=== PATIENT | male | born 1935 | race Caucasian/White ===

== ENCOUNTER 2018-09-17 14:09 | Inpatient (IN) | payer OTHER, MEDICARE ==
--- NOTE | 2018-09-17 14:26 | PDOC ---
History of Present Illness - General Chief Complaint: Hematuria Stated Complaint: BLOOD IN URINE Time Seen by Provider: 09/17/18 14:26 Past History - Past Medical History Allergies/Adverse Reactions: Allergies Allergy/AdvReac Type Severity Reaction Status Date / Time iodine Allergy Verified 09/17/18 14:28 levofloxacin Allergy Verified 09/17/18 14:28 shellfish derived Allergy Verified 09/17/18 14:28 ED Treatment Course - LABORATORY CBC & Chemistry Diagram: 09/17/18 14:30 09/17/18 14:30
[2018-09-17 14:31] VITALS: BMI 34.8
[2018-09-17] MEDS ORDERED: ACETAMINOPHEN 1000 MG/100 ML VIAL (NON FORMULARY) IVPB ONE (15:04)
[2018-09-17 15:22] LABS: VENOUS PC02 56.4 mmHg (38-52); VENOUS PH 7.31 (7.32-7.42); VENOUS PO2 23.7 mmHg (28-48)
[2018-09-17 15:25] LABS: BASO % 0.2 % (0-2.0); EOS % 0.5 % (0-4.5); HEMATOCRIT 38.2 % (35.4-49); HEMOGLOBIN 13.2 GM/dL (11.7-16.9); LYMPH % 7.5 % (8-40); MCHC 34.6 g/dl (32.0-35.9); MEAN CELL VOLUME 92.4 fl (80-96); MEAN PLT VOLUME 7.8 fl (7.5-11.1); MONO % 6.4 % (3.8-10.2); NEUT % 85.4 % (42.8-82.8); PLATELET COUNT 182 K/MM3 (134-434); RBC 4.14 M/mm3 (4.00-5.60); RDW 15.1 % (11.9-15.9); WHITE BLOOD COUNT 10.6 K/mm3 (4.0-10.0)
[2018-09-17] MEDS ORDERED: ACETAMINOPHEN INJECTION 100 ML IVPB ONE (15:33)
[2018-09-17 15:44] LABS: INR 1.07 (0.83-1.09); PROTHROMBIN TIME (PATIENT) 12.6 SEC (9.7-13.0)
[2018-09-17] MEDS ORDERED: SODIUM CHLORIDE 0.9% 500 ML INFUS.BAG IV ONE ×2 (16:07→16:52)
[2018-09-17 16:16] LABS: ALBUMIN 3.9 g/dl (3.4-5.0); ALK PHOS 90 U/L (45-117); ANION GAP 8 MMOL/L (8-16); BILIRUBIN,TOTAL 0.7 mg/dL (0.2-1); BLOOD UREA NITROGEN 23 mg/dL (7-18); CALCIUM 9.2 mg/dL (8.5-10.1); CHLORIDE 99 mmol/L (98-107); CO2 28 mmol/L (21-32); CREATININE 1.2 mg/dL (0.55-1.3); GLUCOSE,RANDOM 177 mg/dL (74-106); POTASSIUM 4.6 mmol/L (3.5-5.1); SGOT/AST 17 U/L (15-37); SGPT/ALT 26 U/L (13-61); SODIUM 135 mmol/L (136-145); TOT PROT 7.5 g/dl (6.4-8.2)
[2018-09-17 16:49] LABS: URINE APPEARANCE TURBID; URINE BILIRUBIN NEGATIVE (<2.0 mg/dL); URINE GLUCOSE (UA) NEGATIVE (NEGATIVE); URINE KETONE NEGATIVE (NEGATIVE); URINE LEUK ESTERASE NEGATIVE (NEGATIVE); URINE NITRITE POSITIVE (NEGATIVE); URINE UROBILINOGEN NEGATIVE mg/dL (0.2-1.0)
[2018-09-17 16:51] LABS: URINE COLOR BROWN; URINE PROTEIN 3+ (NEGATIVE)
[2018-09-17 16:57] LABS: URINE BACTERIA MANY /hpf (NONE SEEN)
[2018-09-17] MEDS ORDERED: PIPERACILLIN/TAZOB 4.5 GM 4.5 GM in DEXTROSE 5%-WATER 100 ML IVPB ONE (17:02)
--- NOTE | 2018-09-17 17:33 | PDOC ---
Attending Attestation - Resident Resident Name: Angelica Hayes - ED Attending Attestation I have performed the following: I have examined & evaluated the patient, The case was reviewed & discussed with the resident, I agree w/resident's findings & plan, Exceptions are as noted - HPI HPI: 09/26/18 15:35 82 years old with past medical history significant for hyperlipidemia hypertension diabetes dementia a seizure previous UTIs brought in from [facility] secondary to urinary retention. - Physicial Exam PE: 09/26/18 15:35 Vitals: Triage Vital signs reviewed General Appearance: no acute distress, well nourished well developed, Head: Atraumatic, Neck: Supple;No Nucal rigidity Chest Wall: Nontender Cardiac: Regular rate and rhythym, no murmurs, no rubs, no gallops, Lungs: Clear to auscultation bilateral, good air movement bilaterally, Abdomen: Soft, non distended, normal bowel sounds, non tender to palpation Extremities: Full range of motion to all extremities, no cyanosis, clubbing, or edema Skin: Warm and dry, no rashes or lesions, no rash, no petechiae - Medical Decision Making 09/29/18 13:23 82 years old presents to the emergency department with signs and symptoms consistent with urosepsis We will cover with broad-spectrum antibiotics and admit the hospital for further management.
[2018-09-17] MEDS ORDERED: PIPERACILLIN/TAZOB 4.5 GM 4.5 GM/100 ML BAG IVPB ONE (17:46)
--- NOTE | 2018-09-17 17:57 | PN ---
Teaching Attending Note Name of Resident: Art De La Cruz ATTENDING PHYSICIAN STATEMENT I saw and evaluated the patient. I reviewed the resident's note and discussed the case with the resident. I agree with the resident's findings and plan as documented. SUBJECTIVE: Patient is 82 y/o male with PMHx of HTN, HLD, DM, dementia, aphasia previous UTIs was brought in from [facility] for having urinary retention , hx is taken from the notes since the patient is apahsic and has dementia. OBJECTIVE: Vital Signs Temperature 102.7 F H 09/17/18 16:44 Pulse Rate 90 09/17/18 16:44 Respiratory Rate 20 09/17/18 16:44 Blood Pressure 120/78 09/17/18 16:44 O2 Sat by Pulse Oximetry (%) 100 09/17/18 16:44 Initial Vital Signs Pulse Pulse Ox 110 H 98 09/17/18 14:21 09/17/18 14:21 GENERAL: Awake, arousable to name calling. EYES: PEERLA; EOMI; no scleral icterus NECK: no JVD; no lymphadenopathy LUNGS: CTA B/L; no rales, rhonchi or wheezing HEART:RRR, normal S1 and S2 without murmur, rub or gallop. ABDOMEN: Soft, NT, + BS in all 4 quadrants MUSCULOSKELETAL: Normal range of motion at all joints. No bony deformities or tenderness. No CVA tenderness. EXTREMITIES: warm; well-perfused; no clubbing/cyanosis or edema PSYCHIATRIC: Cooperative. arousable to name SKIN: Warm, dry, normal turgor, no rashes or lesions noted, normal capillary refill. CBCD WBC 10.6 K/mm3 (4.0-10.0) H 09/17/18 14:30 RBC 4.14 M/mm3 (4.00-5.60) 09/17/18 14:30 Hgb 13.2 GM/dL (11.7-16.9) 09/17/18 14:30 Hct 38.2 % (35.4-49) 09/17/18 14:30 MCV 92.4 fl (80-96) 09/17/18 14:30 MCHC 34.6 g/dl (32.0-35.9) 09/17/18 14:30 RDW 15.1 % (11.9-15.9) 09/17/18 14:30 Plt Count 182 K/MM3 (134-434) 09/17/18 14:30 MPV 7.8 fl (7.5-11.1) 09/17/18 14:30 CMP Sodium 135 mmol/L (136-145) L 09/17/18 14:30 Potassium 4.6 mmol/L (3.5-5.1) 09/17/18 14:30 Chloride 99 mmol/L (98-107) 09/17/18 14:30 Carbon Dioxide 28 mmol/L (21-32) 09/17/18 14:30 Anion Gap 8 MMOL/L (8-16) 09/17/18 14:30 BUN 23 mg/dL (7-18) H 09/17/18 14:30 Creatinine 1.2 mg/dL (0.55-1.3) 09/17/18 14:30 Creat Clearance w eGFR 57.82 (>60) 09/17/18 14:30 Random Glucose 177 mg/dL (74-106) H 09/17/18 14:30 Calcium 9.2 mg/dL (8.5-10.1) 09/17/18 14:30 Total Bilirubin 0.7 mg/dL (0.2-1) 09/17/18 14:30 AST 17 U/L (15-37) 09/17/18 14:30 ALT 26 U/L (13-61) 09/17/18 14:30 Alkaline Phosphatase 90 U/L (45-117) 09/17/18 14:30 Total Protein 7.5 g/dl (6.4-8.2) 09/17/18 14:30 Albumin 3.9 g/dl (3.4-5.0) 09/17/18 14:30 Urine Test Results Urine Color Brown 09/17/18 16:22 Urine Appearance Turbid 09/17/18 16:22 Urine pH 6.0 (5.0-8.0) 09/17/18 16:22 Ur Specific [place] 1.013 (1.010-1.035) 09/17/18 16:22 Urine Protein 3+ (NEGATIVE) H 09/17/18 16:22 Urine Glucose (UA) Negative (NEGATIVE) 09/17/18 16:22 Urine Ketones Negative (NEGATIVE) 09/17/18 16:22 Urine Blood 3+ (NEGATIVE) H 09/17/18 16:22 Urine Nitrite Positive (NEGATIVE) 09/17/18 16:22 Urine Bilirubin Negative (<2.0 mg/dL) 09/17/18 16:22 Ur Leukocyte Esterase Negative (NEGATIVE) 09/17/18 16:22 Urine Bacteria Many /hpf (NONE SEEN) 09/17/18 16:22 Current Medications Generic Name Dose Route Start Last Admin Trade Name Freq PRN Reason Stop Dose Admin Acetaminophen 650 mg 09/17/18 18:46 Tylenol - PO Q6H PRN Fever Or Pain Aspirin 81 mg 09/18/18 10:00 Asa - PO DAILY [facility] Atorvastatin Calcium 5 mg 09/17/18 22:00 Lipitor - PO HS [facility] Citalopram Hydrobromide 10 mg 09/18/18 10:00 Celexa - PO DAILY [facility] Docusate Sodium 200 mg 09/17/18 22:00 Colace - PO HS [facility] Heparin Sodium (Porcine) 5,000 unit 09/17/18 18:30 Heparin - SQ TID [facility] Sodium Chloride 1,000 mls @ 75 mls/hr 09/17/18 18:30 Normal Saline - IV 09/18/18 07:49 ASDIR BLAIR Piperacillin Sod/Tazobactam 50 mls @ 100 mls/hr 09/18/18 01:00 Sod 3.375 gm/ Dextrose IVPB Q8H-IV [facility] Protocol Piperacillin Sod/Tazobactam 50 mls @ 100 mls/hr 09/18/18 01:00 Sod 3.375 gm/ Dextrose IVPB 09/18/18 17:29 Q8H [facility] Insulin Aspart 1 vial 09/17/18 22:00 Novolog Vial Sliding Scale - SQ ACHS [facility] Protocol Metoprolol Tartrate 25 mg 09/17/18 22:00 Lopressor - PO BID [facility] Polyethylene Glycol 17 gm 09/18/18 10:00 Miralax (For Daily Use) - PO DAILY [facility] Ramipril 10 mg 09/18/18 10:00 Altace - PO DAILY [facility] ASSESSMENT AND PLAN: Soo is a 82 y/o male with PMHx of HTN, HLD, DM, dementia, aphasia was brought in for having for urinary retention from [facility] and was found to be septic with gross hematuria in ED. #Acute sepsis due to UTI, milan culture ,ua, urine cx, blood cx, cxr # Acute UTI will place him on iV zosyn , id consult Jeff #HTN continue home meds #T2DM continue with SSc with coverage #HLD continue with lipitor 10 HS DVT PPX: heparin 5000 Q8H SQ CODE STATUS: DNR/DNI
[2018-09-17] MEDS: HEPARIN NA (PORCINE) 5,000 UNITS/ML 1ML VIAL SQ SCH ×2 (18:30→22:31)
[2018-09-17] MEDS ORDERED: SODIUM CHLORIDE 1,000 ML IV SCH (18:30)
--- NOTE | 2018-09-17 18:44 | HP ---
CHIEF COMPLAINT: UTI/hematuria PCP: [facility] HISTORY OF PRESENT ILLNESS: 82 y/o male with PMH of HTN, HLD, DM, dementia, aphasia previous UTIs was brought in from [facility] for what it seems to be urinary retention - history could not be obtained as patient is apahsic and dementia and no one was present at bedside. ER course was notable for: (1)T 103.7 HR 110 (2)Lactic acid 4.3, WBC 10.6, U/A + nitrite, - leuk esterase, 2991 WBC 1406 RBC (3)given 1 gram tylenol, zosyn, 3.5 liters of fluid Recent Travel: unknown PAST MEDICAL HISTORY: see above PAST SURGICAL HISTORY: unknown Social History: Smoking:unknown Alcohol:unknown Drugs: unknown Family History: Allergies iodine Allergy (Verified 09/17/18 14:28) levofloxacin Allergy (Verified 09/17/18 14:28) shellfish derived Allergy (Verified 09/17/18 14:28) HOME MEDICATIONS: Home Medications Medication Instructions Recorded Acetaminophen [Tylenol] 650 mg PO QID 09/17/18 Aspirin [ASA -] 81 mg PO DAILY 09/17/18 Atorvastatin Ca [Lipitor] 5 mg PO HS 09/17/18 Citalopram Hydrobromide [Celexa -] 10 mg PO DAILY 09/17/18 Docusate Sodium 200 mg PO HS 09/17/18 Magnesium Hydroxide [Milk of 400 mg PO DAILY 09/17/18 Magnesia] Metformin HCl [Glucophage] 500 mg PO DAILY 09/17/18 Metoprolol Tartrate 25 mg PO BID 09/17/18 Polyethylene Glycol 3350 [Miralax 17 gm PO DAILY 09/17/18 (For Daily Use) -] Ramipril 10 mg PO DAILY 09/17/18 REVIEW OF SYSTEMS: UNABLE TO OBTAIN PATIENT IS APHASIC CONSTITUTIONAL: Absent: fever, chills, diaphoresis, generalized weakness, malaise, loss of appetite, weight change HEENT: Absent: rhinorrhea, nasal congestion, throat pain, throat swelling, difficulty swallowing, mouth swelling, ear pain, eye pain, visual changes CARDIOVASCULAR: Absent: chest pain, syncope, palpitations, irregular heart rate, lightheadedness , peripheral edema RESPIRATORY: Absent: cough, shortness of breath, dyspnea with exertion, orthopnea, wheezing, stridor, hemoptysis GASTROINTESTINAL: Absent: abdominal pain, abdominal distension, nausea, vomiting, diarrhea, constipation, melena, hematochezia GENITOURINARY: Absent: dysuria, frequency, urgency, hesitancy, hematuria, flank pain, genital pain MUSCULOSKELETAL: Absent: myalgia, arthralgia, joint swelling, back pain, neck pain SKIN: Absent: rash, itching, pallor HEMATOLOGIC/IMMUNOLOGIC: Absent: easy bleeding, easy bruising, lymphadenopathy, frequent infections ENDOCRINE: Absent: unexplained weight gain, unexplained weight loss, heat intolerance, cold intolerance NEUROLOGIC: Absent: headache, focal weakness or paresthesias, dizziness, unsteady gait, seizure, mental status changes, bladder or bowel incontinence PSYCHIATRIC: Absent: anxiety, depression, suicidal or homicidal ideation, hallucinations. PHYSICAL EXAMINATION Vital Signs - 24 hr 09/17/18 09/17/18 09/17/18 14:21 14:22 15:02 Temperature 103.7 F H Pulse Rate 110 H 110 H Pulse Rate [ 98 H Apical] Respiratory 20 23 H Rate Blood Pressure 136/60 Blood Pressure 125/68 [Right Arm] O2 Sat by Pulse 98 94 L 98 Oximetry (%) 09/17/18 09/17/18 16:44 18:10 Temperature 102.7 F H Pulse Rate Pulse Rate [ 90 80 Apical] Respiratory 20 16 Rate Blood Pressure Blood Pressure 120/78 113/50 L [Right Arm] O2 Sat by Pulse 100 100 Oximetry (%) GENERAL: Awake, arousable to name calling. EYES: PEERLA; EOMI; no scleral icterus NECK: no JVD; no lymphadenopathy LUNGS: CTA B/L; no rales, rhonchi or wheezing HEART: tachycardic, normal S1 and S2 without murmur, rub or gallop. ABDOMEN: Soft, no wincing to palpation; + BS in all 4 quadrants MUSCULOSKELETAL: Normal range of motion at all joints. No bony deformities or tenderness. No CVA tenderness. EXTREMITIES: warm; well-perfused; no clubbing/cyanosis or edema PSYCHIATRIC: Cooperative. arousable to name SKIN: Warm, dry, normal turgor, no rashes or lesions noted, normal capillary refill. Laboratory Results - last 24 hr 09/17/18 09/17/18 09/17/18 14:30 14:30 14:30 WBC 10.6 H RBC 4.14 Hgb 13.2 Hct 38.2 MCV 92.4 MCH 32.0 MCHC 34.6 RDW 15.1 Plt Count 182 MPV 7.8 Absolute Neuts (auto) 9.0 H Neutrophils % 85.4 H Lymphocytes % 7.5 L Monocytes % 6.4 Eosinophils % 0.5 Basophils % 0.2 Nucleated RBC % 0 PT with INR 12.60 INR 1.07 VBG pH POC VBG pCO2 POC VBG pO2 Mixed VBG HCO3 Sodium 135 L Potassium 4.6 Chloride 99 Carbon Dioxide 28 Anion Gap 8 BUN 23 H Creatinine 1.2 Creat Clearance w eGFR 57.82 Random Glucose 177 H Lactic Acid Calcium 9.2 Total Bilirubin 0.7 AST 17 ALT 26 Alkaline Phosphatase 90 Total Protein 7.5 Albumin 3.9 Urine Color Urine Appearance Urine pH Ur Specific [place] Urine Protein Urine Glucose (UA) Urine Ketones Urine Blood Urine Nitrite Urine Bilirubin Urine Urobilinogen Ur Leukocyte Esterase Urine WBC (Auto) Urine RBC (Auto) Urine Bacteria Blood Type Antibody Screen 09/17/18 09/17/18 09/17/18 14:30 14:30 14:30 WBC RBC Hgb Hct MCV MCH MCHC RDW Plt Count MPV Absolute Neuts (auto) Neutrophils % Lymphocytes % Monocytes % Eosinophils % Basophils % Nucleated RBC % PT with INR INR VBG pH 7.31 L POC VBG pCO2 56.4 H POC VBG pO2 23.7 L Mixed VBG HCO3 27.4 H Sodium Potassium Chloride Carbon Dioxide Anion Gap BUN Creatinine Creat Clearance w eGFR Random Glucose Lactic Acid 4.3 H* Calcium Total Bilirubin AST ALT Alkaline Phosphatase Total Protein Albumin Urine Color Urine Appearance Urine pH Ur Specific [place] Urine Protein Urine Glucose (UA) Urine Ketones Urine Blood Urine Nitrite Urine Bilirubin Urine Urobilinogen Ur Leukocyte Esterase Urine WBC (Auto) Urine RBC (Auto) Urine Bacteria Blood Type O POSITIVE Antibody Screen Negative 09/17/18 16:22 WBC RBC Hgb Hct MCV MCH MCHC RDW Plt Count MPV Absolute Neuts (auto) Neutrophils % Lymphocytes % Monocytes % Eosinophils % Basophils % Nucleated RBC % PT with INR INR VBG pH POC VBG pCO2 POC VBG pO2 Mixed VBG HCO3 Sodium Potassium Chloride Carbon Dioxide Anion Gap BUN Creatinine Creat Clearance w eGFR Random Glucose Lactic Acid Calcium Total Bilirubin AST ALT Alkaline Phosphatase Total Protein Albumin Urine Color Brown Urine Appearance Turbid Urine pH 6.0 Ur Specific [place] 1.013 Urine Protein 3+ H Urine Glucose (UA) Negative Urine Ketones Negative Urine Blood 3+ H Urine Nitrite Positive Urine Bilirubin Negative Urine Urobilinogen Negative Ur Leukocyte Esterase Negative Urine WBC (Auto) 2991 Urine RBC (Auto) 1406 Urine Bacteria Many Blood Type Antibody Screen ASSESSMENT/PLAN: 82 y/o male with PMH of HTN, HLD, DM, dementia, aphasia previous UTI's was brought in from [facility] for urinary retention and found to be septic from a urinary tract infection with gross hematuria #Sepsis 2/2 UTI received 2liters of fluid, 1 gram of Tylenol, zosyn thus far -f/u blood cultures -f/u urine cx -stat chest XRAY ordered -f/u repeat lactic acid -c/w IV zosyn -ID consulted -tylenol PRN for fever -monitor vitals -NS @75 -monitor hemodynamics #HTN BP stable at this moment -c/w ramipril 10 daily -c/w metoprolol tartrate 25 daily #DM holding oral diabetes medications -ISS -BGMS ACHS #HLD -c/w lipitor 10 HS DVT PPX: heparin 5000 Q8H SQ F/E/N NS @75mls monitor electrolytes NPO for now pending speech and swallow CODE STATUS: DNR/DNI Problem List - Problem (1) UTI (urinary tract infection) Code(s): N39.0 - URINARY TRACT INFECTION, SITE NOT SPECIFIED (2) HTN (hypertension) Code(s): I10 - ESSENTIAL (PRIMARY) HYPERTENSION (3) HLD (hyperlipidemia) Code(s): E78.5 - HYPERLIPIDEMIA, UNSPECIFIED (4) Diabetes Code(s): E11.9 - TYPE 2 DIABETES MELLITUS WITHOUT COMPLICATIONS Visit type - Emergency Visit Emergency Visit: Yes ED Registration Date: 09/17/18 Care time: The patient presented to the Emergency Department on the above date and was hospitalized for further evaluation of their emergent condition. - New Patient This patient is new to me today: Yes Date on this admission: 09/17/18 - Critical Care Critical Care patient: No
[2018-09-17] MEDS ORDERED: PT OWN MED DRAWER 7, Y5N ONE (21:49)
[2018-09-17] MEDS: DOCUSATE SODIUM 100 MG CAPSULE (FP) PO SCH (22:30)
[2018-09-17] MEDS: METOPROLOL TARTRATE 25 MG TABLET (FP) PO SCH (22:31)
[2018-09-17] MEDS: ATORVASTATIN CA 10 MG TABLET (FP) PO SCH (22:32)
[2018-09-17] MEDS: INSULIN SLIDING SCALE (NOVOLOG) 1 VIAL SQ SCH (23:07)
[2018-09-17] MEDS: ACETAMINOPHEN 325 MG TABLET (FP) PO PRN (23:14)
[2018-09-18] MEDS ORDERED: PIPERACILLIN/TAZOB 3.375 GM 3.375 GM in DEXTROSE 5%-WATER - 50 ML IVPB SCH (01:00)
[2018-09-18] MEDS: PIPERACILLIN/TAZOB 3.375 GM 3.375 GM in DEXTROSE 5%-WATER - 50 ML IVPB SCH ×2 (02:43→09:37)
[2018-09-18] MEDS: HEPARIN NA (PORCINE) 5,000 UNITS/ML 1ML VIAL SQ SCH ×2 (06:01→14:38)
[2018-09-18] MEDS: INSULIN SLIDING SCALE (NOVOLOG) 1 VIAL SQ SCH ×4 (06:11→22:27)
[2018-09-18] MEDS ORDERED: PT OWN MED DRAWER 7, Y5N ONE ×2 (06:35→19:13)
[2018-09-18] MEDS: ACETAMINOPHEN 325 MG TABLET (FP) PO PRN ×2 (06:39→17:38)
[2018-09-18] MEDS ORDERED: SODIUM CHLORIDE 1,000 ML IV SCH (07:30)
[2018-09-18 08:19] LABS: BASO % 0.3 % (0-2.0); EOS % 0.3 % (0-4.5); HEMATOCRIT 31.1 % (35.4-49); HEMOGLOBIN 10.7 GM/dL (11.7-16.9); MCH 31.5 pg (25.7-33.7); MCHC 34.4 g/dl (32.0-35.9); MEAN CELL VOLUME 91.7 fl (80-96); MEAN PLT VOLUME 7.6 fl (7.5-11.1); MONO % 7.5 % (3.8-10.2); NEUT % 86.9 % (42.8-82.8); PLATELET COUNT 146 K/MM3 (134-434); RBC 3.39 M/mm3 (4.00-5.60); RDW 15.2 % (11.9-15.9); WHITE BLOOD COUNT 8.6 K/mm3 (4.0-10.0)
--- NOTE | 2018-09-18 08:22 | PN ---
Physical Exam: SUBJECTIVE: Patient seen and examined at bedside- cannot obtain history as patient is aphasic; patient still had some fevers overnight OBJECTIVE: Vital Signs Period Temp Pulse Resp BP Sys/Lozano Pulse Ox Last 24 Hr 98.7 F-103.7 F 80-110 16-23 106-136/48-78 94-100 GENERAL: The patient is awake, alert, , in no acute distress.. EYES: PEERLA EOMI no scleral icterus . NECK: no JVD; no lymphadenopathy LUNGS: CTA B/L; no rales, rhonchi or wheezing HEART: tacycardic, S1, S2 without murmur, rub or gallop. ABDOMEN: Soft, no wincing upon palpation; nondistended +BS in all 4 quadrants EXTREMITIES: 2+ pulses, warm, well-perfused, no edema. PSYCH: Normal mood, normal affect. SKIN: Warm, dry, normal turgor, no rashes or lesions noted Laboratory Results - last 24 hr 09/17/18 09/17/18 09/17/18 14:30 14:30 14:30 WBC 10.6 H RBC 4.14 Hgb 13.2 Hct 38.2 MCV 92.4 MCH 32.0 MCHC 34.6 RDW 15.1 Plt Count 182 MPV 7.8 Absolute Neuts (auto) 9.0 H Neutrophils % 85.4 H Lymphocytes % 7.5 L Monocytes % 6.4 Eosinophils % 0.5 Basophils % 0.2 Nucleated RBC % 0 PT with INR 12.60 INR 1.07 VBG pH POC VBG pCO2 POC VBG pO2 Mixed VBG HCO3 Sodium 135 L Potassium 4.6 Chloride 99 Carbon Dioxide 28 Anion Gap 8 BUN 23 H Creatinine 1.2 Creat Clearance w eGFR 57.82 POC Glucometer Random Glucose 177 H Lactic Acid Calcium 9.2 Total Bilirubin 0.7 AST 17 ALT 26 Alkaline Phosphatase 90 Total Protein 7.5 Albumin 3.9 Urine Color Urine Appearance Urine pH Ur Specific [place] Urine Protein Urine Glucose (UA) Urine Ketones Urine Blood Urine Nitrite Urine Bilirubin Urine Urobilinogen Ur Leukocyte Esterase Urine WBC (Auto) Urine RBC (Auto) Urine Bacteria Blood Type Antibody Screen 09/17/18 09/17/18 09/17/18 14:30 14:30 14:30 WBC RBC Hgb Hct MCV MCH MCHC RDW Plt Count MPV Absolute Neuts (auto) Neutrophils % Lymphocytes % Monocytes % Eosinophils % Basophils % Nucleated RBC % PT with INR INR VBG pH 7.31 L POC VBG pCO2 56.4 H POC VBG pO2 23.7 L Mixed VBG HCO3 27.4 H Sodium Potassium Chloride Carbon Dioxide Anion Gap BUN Creatinine Creat Clearance w eGFR POC Glucometer Random Glucose Lactic Acid 4.3 H* Calcium Total Bilirubin AST ALT Alkaline Phosphatase Total Protein Albumin Urine Color Urine Appearance Urine pH Ur Specific [place] Urine Protein Urine Glucose (UA) Urine Ketones Urine Blood Urine Nitrite Urine Bilirubin Urine Urobilinogen Ur Leukocyte Esterase Urine WBC (Auto) Urine RBC (Auto) Urine Bacteria Blood Type O POSITIVE Antibody Screen Negative 09/17/18 09/17/18 09/18/18 16:22 23:01 06:10 WBC RBC Hgb Hct MCV MCH MCHC RDW Plt Count MPV Absolute Neuts (auto) Neutrophils % Lymphocytes % Monocytes % Eosinophils % Basophils % Nucleated RBC % PT with INR INR VBG pH POC VBG pCO2 POC VBG pO2 Mixed VBG HCO3 Sodium Potassium Chloride Carbon Dioxide Anion Gap BUN Creatinine Creat Clearance w eGFR POC Glucometer 197 182 Random Glucose Lactic Acid Calcium Total Bilirubin AST ALT Alkaline Phosphatase Total Protein Albumin Urine Color Brown Urine Appearance Turbid Urine pH 6.0 Ur Specific [place] 1.013 Urine Protein 3+ H Urine Glucose (UA) Negative Urine Ketones Negative Urine Blood 3+ H Urine Nitrite Positive Urine Bilirubin Negative Urine Urobilinogen Negative Ur Leukocyte Esterase Negative Urine WBC (Auto) 2991 Urine RBC (Auto) 1406 Urine Bacteria Many Blood Type Antibody Screen Active Medications Generic Name Dose Route Start Last Admin Trade Name Freq PRN Reason Stop Dose Admin Acetaminophen 650 mg 09/17/18 18:46 09/18/18 06:39 Tylenol - PO 650 mg Q6H PRN Administration Fever Or Pain Aspirin 81 mg 09/18/18 10:00 Asa - PO DAILY [facility] Atorvastatin Calcium 5 mg 09/17/18 22:00 09/17/18 22:32 Lipitor - PO 5 mg HS BLAIR Administration Citalopram Hydrobromide 10 mg 09/18/18 10:00 Celexa - PO DAILY [facility] Docusate Sodium 200 mg 09/17/18 22:00 09/17/18 22:30 Colace - PO 200 mg HS [facility] Administration Heparin Sodium (Porcine) 5,000 unit 09/17/18 18:30 09/18/18 06:01 Heparin - SQ 5,000 unit TID [facility] Administration Piperacillin Sod/Tazobactam 50 mls @ 100 mls/hr 09/18/18 01:00 Sod 3.375 gm/ Dextrose IVPB Q8H-IV [facility] Protocol Piperacillin Sod/Tazobactam 50 mls @ 100 mls/hr 09/18/18 02:00 09/18/18 02:43 Sod 3.375 gm/ Dextrose IVPB 09/18/18 18:29 100 mls/hr Q8H [facility] Administration Sodium Chloride 1,000 mls @ 75 mls/hr 09/18/18 07:30 Normal Saline - IV 09/18/18 20:49 ASDIR BLAIR Insulin Aspart 1 vial 09/17/18 22:00 09/18/18 06:11 Novolog Vial Sliding Scale - SQ 2 unit ACHS [facility] Administration Protocol Metoprolol Tartrate 25 mg 09/17/18 22:00 09/17/18 22:31 Lopressor - PO 25 mg BID [facility] Administration Nystatin 1 applic 09/18/18 10:00 Mycostatin Cream - TP BID [facility] Polyethylene Glycol 17 gm 09/18/18 10:00 Miralax (For Daily Use) - PO DAILY [facility] Ramipril 10 mg 09/18/18 10:00 Altace - PO DAILY [facility] ASSESSMENT/PLAN: 82 y/o male with PMH of HTN, HLD, DM, dementia, aphasia previous UTI's was brought in from [facility] for urinary retention and found to be septic from a urinary tract infection with gross hematuria #Sepsis 2/2 UTI chest XRAY shows mild atelectatic changes at the right lung bases; cannot rule out pneumonic infiltrate -f/u blood cultures -f/u urine cx -repeat lactic acid 2.0 -c/w IV zosyn -ID consulted -will consult urology given hematuria and history of retention -tylenol PRN for fever -monitor vitals -NS @100 #HTN BP stable at this moment -c/w ramipril 10 daily -c/w metoprolol tartrate 25 BID #DM holding oral diabetes medications -ISS -BGMS ACHS #HLD -c/w lipitor 5 HS DVT PPX: heparin 5000 Q8H SQ F/E/N NS @100mls monitor electrolytes pureed nectar thick diet Problem List - Problems (1) UTI (urinary tract infection) Code(s): N39.0 - URINARY TRACT INFECTION, SITE NOT SPECIFIED (2) HTN (hypertension) Code(s): I10 - ESSENTIAL (PRIMARY) HYPERTENSION (3) HLD (hyperlipidemia) Code(s): E78.5 - HYPERLIPIDEMIA, UNSPECIFIED (4) Diabetes Code(s): E11.9 - TYPE 2 DIABETES MELLITUS WITHOUT COMPLICATIONS Visit type - Emergency Visit Emergency Visit: Yes ED Registration Date: 09/17/18 Care time: The patient presented to the Emergency Department on the above date and was hospitalized for further evaluation of their emergent condition. - New Patient This patient is new to me today: No - Critical Care Critical Care patient: No
[2018-09-18] MEDS ORDERED: DEXTROSE 5%-WATER - 50 ML IVPB ONE (09:18)
[2018-09-18] MEDS ORDERED: PIPERACILLIN/TAZOBACTAM 3.375 GM VIAL IVPB ONE (09:18)
[2018-09-18 09:20] LABS: ALBUMIN 2.8 g/dl (3.4-5.0); ALK PHOS 64 U/L (45-117); ANION GAP 7 MMOL/L (8-16); BILIRUBIN,TOTAL 0.7 mg/dL (0.2-1); BLOOD UREA NITROGEN 18 mg/dL (7-18); CALCIUM 8.1 mg/dL (8.5-10.1); CHLORIDE 106 mmol/L (98-107); CO2 26 mmol/L (21-32); CREATININE 1.1 mg/dL (0.55-1.3); GLUCOSE,RANDOM 137 mg/dL (74-106); MAGNESIUM 1.9 mg/dL (1.8-2.4); PHOSPHOROUS 2.3 mg/dL (2.5-4.9); POTASSIUM 3.9 mmol/L (3.5-5.1); SGOT/AST 34 U/L (15-37); SGPT/ALT 41 U/L (13-61); SODIUM 138 mmol/L (136-145); TOT PROT 5.7 g/dl (6.4-8.2)
[2018-09-18] MEDS: CITALOPRAM HYDROBROMIDE 10 MG TABLET (FP) PO SCH (09:38)
[2018-09-18] MEDS: ASPIRIN 81 MG CHEWABLE TABLETS PO SCH (09:38)
[2018-09-18] MEDS: POLYETHYLENE GLYCOL 3350 119 GM BTL PO SCH (09:39)
[2018-09-18] MEDS ORDERED: RAMIPRIL 5 MG CAPSULE (FP) PO SCH (10:00)
--- NOTE | 2018-09-18 10:11 | CONSULT ---
Admitting History and Physical - Primary Care Physician PCP: Jose A Rosales - Admission History of Present Illness: 82 y/o male with PMHx of HTN, HLD, DM, dementia, aphasia was brought in for having for urinary retention from [facility] and was found to be septic with gross hematuria in ED. CXR-Right base atelectic changes. Infiltrates? Reg diet/thin liquids ordered. Selected Entries 09/17/18 09/17/18 09/17/18 14:22 16:44 19:30 Breakfast Diet Tolerated Temperature 103.7 F H 102.7 F H 98.7 F 09/18/18 09/18/18 09/18/18 02:00 06:00 06:33 Breakfast Diet Tolerated Temperature 98.7 F 99.7 F H 101.5 F H 09/18/18 10:04 Breakfast 75% Diet Tolerated Well Temperature Laboratory Tests 09/17/18 09/18/18 14:30 07:50 WBC 10.6 H 8.6 Transfer summary noted Oropharyngeal Dysphagia. Diet order-Reg diet/thin liquids LIGHT ADJUSTER reported that pt tolerated breakfast, thin liquids via straw without coughing. History Source: Medical Record Limitations to Obtaining History: Clinical Condition, Dementia - Advance Directives Advance Directives: Yes: DNR - Smoking History Smoking history: Unknown if ever smoked Have you smoked in the past 12 months: No - Alcohol/Substance Use Hx Alcohol Use: No History - Admission Reason For Visit: SEPSIS DUE TO UTI/HEMATURIA - Diagnostics X-ray: Report Reviewed (CXR-Right base atelectic changes. Infiltrates?) - General Mental Status: Awake and Alert, Confused, Flat Affect Attention: Distractible (Opens eyes briefly. Establishes eye contact,) Ability to Follow Directions: Fair Head/Neck Control: WFL - Hearing Hearing: Normal Speech Evaluation - Communication Primary Language: CROATIAN Communication: Yes: Non-Communicable ( No yes/No response. Non vocal/Non verbal. Understands simple commands eg give me your hand , Point to your nose,) Oral Expression Ability: Yes: Non-Verbal, Non-Vocal - Language/Auditory Comprehension Follows: Yes: 1 Stage Simple Commands Observation: Able to respond to yes/no queries: No, Comprehends Conversational Speech: Yes - Language/Verbal Expression Able to Respond to Simple Queries: Yes: Severely Impaired Able to Communicate Wants and Needs: Yes: Severely Impaired Functional Communication Status: Yes: Severely Impaired - Swallow Evaluation/Bedside Assessment Current Nutritional Intake: Regular, Thin Liquids Facial Symmetry at Rest: Symmetrical Jaw Position: Closed at Rest Lingual Movement: Unable to Perform Bolus Size: Small Labial Seal: WFL Oral Prep Time: WFL A-P Transit: WFL Pocketing: None Coughing/Throat Clear: Yes (Coughed with 2 trials of water, self fed from a cup , c/w aspiration.) Recommendations - Speech Evaluation, Impression/Plan Impression: Opens eyes briefly. Establishes eye contact, No yes/No response. Non vocal/Non verbal. Understands simple commands eg give me your hand , Point to your nose. Onset of communication deficits? Has pt received speech tx? Communication board assessment? To follow. Pt tolerated breakfast for staff, however, (+) cough/choking/reddened face with me twice on thin water. Some audible chest congestion? c/w aspiration - Disposition [facility]charge to: [facility] - Dysphagia Impressions/Plan Swallowing Skills: Impaired Dysphagia Impressions: Ongoing Evaluation, Suspect Aspiration *Silent aspiration: cannot be R/O at bedside Recommendations: Modified Barium Swallow - Recommendations Diet Consistency: Dysphagia Pureed Medication Administration: Crushed with applesauce Liquids: [place] Thick
[2018-09-18] MEDS: METOPROLOL TARTRATE 25 MG TABLET (FP) PO SCH (11:00)
[2018-09-18] MEDS: NYSTATIN 100,000 UNIT/GM TOPICAL CREAM 15 GM TUBE TP SCH ×2 (12:12→22:28)
[2018-09-18] MEDS: SODIUM CHLORIDE 1,000 ML IV SCH (12:13)
--- NOTE | 2018-09-18 12:41 | EKG ---
Test Reason : Blood Pressure : / mmHG Vent. Rate : 089 BPM Atrial Rate : 089 BPM P-R Int : 166 ms QRS Dur : 114 ms QT Int : 380 ms P-R-T Axes : 093 -07 060 degrees QTc Int : 462 ms NORMAL SINUS RHYTHM INFERIOR INFARCT , AGE UNDETERMINED ABNORMAL ECG NO PREVIOUS ECGS AVAILABLE Confirmed by ARLETTE MTZ MD ([id number]) on 09/18/2018 12:40:47 PM Referred By: Confirmed By:ARLETTE MTZ MD
--- NOTE | 2018-09-18 16:09 | PN ---
Progress Note (short form) - Note Progress Note: ID consult dictated imp/reccd fever, pyuria, urinary retention no other sources of infection noted no history of prior drug resistance per transfer records will switch to cefepime and f/u cultures would obtain renal /bladder sonogram history aphasia Problem List - Problems (1) Fever Code(s): R50.9 - FEVER, UNSPECIFIED (2) UTI (urinary tract infection) Code(s): N39.0 - URINARY TRACT INFECTION, SITE NOT SPECIFIED (3) Urinary retention Code(s): R33.9 - RETENTION OF URINE, UNSPECIFIED
[2018-09-18] MEDS ORDERED: DEXTROSE 5%-WATER 100 ML IVPB ONE (17:28)
[2018-09-18] MEDS ORDERED: CEFEPIME HCL 1 GM VIAL (RESTRICTED TO ID) ONE ×2 (17:28→17:31)
[2018-09-18] MEDS: CEFEPIME 1 GM in DEXTROSE 5%-WATER 100 ML IVPB SCH (17:38)
[2018-09-18] MEDS ORDERED: ALBUTEROL SO4 2.5/IPRATROPIUM 0.5 INH SOL 3 ML VIAL.NEB. NEB ONE (17:50)
--- NOTE | 2018-09-18 18:06 | PN ---
Teaching Attending Note Name of Resident: Sacha Saunders ATTENDING PHYSICIAN STATEMENT I saw and evaluated the patient. I reviewed the resident's note and discussed the case with the resident. I agree with the resident's findings and plan as documented. SUBJECTIVE: Not able to obtain hx OBJECTIVE: NAD, awake, non verbal. alert. CV: RRR Lungs: CTAB Abd:soft, NT, ND , NL BS Ext : no edema or erythema ASSESSMENT AND PLAN: 82 y/o man with h/o advanced dementia, non-verbal, HTN, HLP, DM, UTIs, who was sent form [facility] due to fever and hemtauria and was found to have sepsis due to UTI. 1- Sepsis due to complicated UTI. cont to have fever but Abx were started 24 hr ago - follow urine and blood c - cont cefepime per ID - team contacted [facility], there is no previous urine cx available - follow lactic acid - increased IVF this am 2- Hematuria: could be due to infection . per daughter, he had significant hematuria with his previous UTIS. - hold heparin for DVT px - Uro consult - monitor H&H - hold asa for now 3- H/O HTN: hold rmipril and BB due to sepsis . can resume if elevated 4- DM : hold metformin and cont SSI. DVT PX: SCDs
[2018-09-18] MEDS ORDERED: SODIUM CHLORIDE 250 ML IV STA (19:31)
[2018-09-18] MEDS: DOCUSATE SODIUM 100 MG CAPSULE (FP) PO SCH (22:27)
[2018-09-18] MEDS: ATORVASTATIN CA 10 MG TABLET (FP) PO SCH (22:27)
[2018-09-19] MEDS ORDERED: DEXTROSE 5%-WATER 100 ML IVPB ONE ×3 (01:17→16:55)
[2018-09-19] MEDS ORDERED: CEFEPIME HCL 1 GM VIAL (RESTRICTED TO ID) ONE ×2 (01:17→09:51)
[2018-09-19] MEDS: ACETAMINOPHEN 325 MG TABLET (FP) PO PRN (01:24)
[2018-09-19] MEDS: CEFEPIME 1 GM in DEXTROSE 5%-WATER 100 ML IVPB SCH ×2 (01:24→09:56)
[2018-09-19] MEDS ORDERED: ALBUTEROL SO4 2.5/IPRATROPIUM 0.5 INH SOL 3 ML VIAL.NEB. NEB ONE (01:31)
[2018-09-19] MEDS: INSULIN SLIDING SCALE (NOVOLOG) 1 VIAL SQ SCH ×4 (06:14→21:56)
[2018-09-19] MEDS: SODIUM CHLORIDE 1,000 ML IV SCH (06:15)
[2018-09-19] MEDS ORDERED: SODIUM CHLORIDE 1,000 ML IV SCH ×2 (07:14→15:45)
[2018-09-19 07:18] LABS: HEMATOCRIT 33.4 % (35.4-49); HEMOGLOBIN 11.6 GM/dL (11.7-16.9); MCH 31.6 pg (25.7-33.7); MCHC 34.7 g/dl (32.0-35.9); MEAN CELL VOLUME 90.9 fl (80-96); MEAN PLT VOLUME 7.9 fl (7.5-11.1); PLATELET COUNT 148 K/MM3 (134-434); RBC 3.68 M/mm3 (4.00-5.60); RDW 15.3 % (11.9-15.9); WHITE BLOOD COUNT 9.2 K/mm3 (4.0-10.0)
[2018-09-19] MEDS ORDERED: ACETAMINOPHEN 1000 MG/100 ML VIAL (NON FORMULARY) IVPB PRN ×2 (07:21→16:01)
[2018-09-19] MEDS ORDERED: FUROSEMIDE 40 MG/4 ML INJECTABLE VIAL IVPUSH ONE ×2 (07:24→23:45)
[2018-09-19 07:27] LABS: ANION GAP 8 MMOL/L (8-16); BLOOD UREA NITROGEN 12 mg/dL (7-18); CALCIUM 7.8 mg/dL (8.5-10.1); CHLORIDE 106 mmol/L (98-107); CO2 24 mmol/L (21-32); GLUCOSE,RANDOM 146 mg/dL (74-106); MAGNESIUM 1.8 mg/dL (1.8-2.4); PHOSPHOROUS 2.2 mg/dL (2.5-4.9); POTASSIUM 4.2 mmol/L (3.5-5.1); SODIUM 138 mmol/L (136-145)
[2018-09-19] MEDS: ALBUTEROL SO4 2.5/IPRATROPIUM 0.5 INH SOL 3 ML VIAL.NEB. NEB PRN (07:30)
--- NOTE | 2018-09-19 08:15 | PN ---
Physical Exam: SUBJECTIVE: Patient seen and examined at bedside- patient still spiking fevers overnight and is audibly wheezing and now having crackles on exam; OBJECTIVE: Vital Signs Period Temp Pulse Resp BP Sys/Lozano Pulse Ox Last 24 Hr 98.0 F-102.8 F 82-96 18-20 127-138/58-81 95-96 GENERAL: The patient is awake, restless EYES:PEERLA; EOMI; no scleral icterus NECK: no JVD; no lymphadenopathy LUNGS: wheezes B/L; crackles at the L left lung base HEART: tachycardic, S1, S2 without murmur, rub or gallop. ABDOMEN: Soft, slightly distended; no wincing upon palpation; no CVA tenderness EXTREMITIES: 2+ pulses, warm, well-perfused, no edema. PSYCH: Normal mood, normal affect. SKIN: Warm, dry, normal turgor, no rashes or lesions noted Laboratory Results - last 24 hr 09/17/18 09/18/18 09/18/18 07:50 07:50 07:50 WBC 8.6 RBC 3.39 L Hgb 10.7 L Hct 31.1 L D MCV 91.7 MCH 31.5 MCHC 34.4 RDW 15.2 Plt Count 146 MPV 7.6 Absolute Neuts (auto) 7.5 Neutrophils % 86.9 H Lymphocytes % 5.0 L D Monocytes % 7.5 Eosinophils % 0.3 Basophils % 0.3 Nucleated RBC % 0 Sodium 138 Potassium 3.9 Chloride 106 Carbon Dioxide 26 Anion Gap 7 L BUN 18 Creatinine 1.1 Creat Clearance w eGFR > 60 POC Glucometer Random Glucose 137 H Lactic Acid Calcium 8.1 L Phosphorus 2.3 L Magnesium 1.9 Total Bilirubin 0.7 AST 34 ALT 41 Alkaline Phosphatase 64 Total Protein 5.7 L Albumin 2.8 L Blood Type O POSITIVE 09/18/18 09/18/18 09/18/18 09:00 11:10 16:14 WBC RBC Hgb Hct MCV MCH MCHC RDW Plt Count MPV Absolute Neuts (auto) Neutrophils % Lymphocytes % Monocytes % Eosinophils % Basophils % Nucleated RBC % Sodium Potassium Chloride Carbon Dioxide Anion Gap BUN Creatinine Creat Clearance w eGFR POC Glucometer 229 234 Random Glucose Lactic Acid 2.0 Calcium Phosphorus Magnesium Total Bilirubin AST ALT Alkaline Phosphatase Total Protein Albumin Blood Type 09/18/18 09/18/18 09/19/18 17:00 22:26 06:13 WBC RBC Hgb Hct MCV MCH MCHC RDW Plt Count MPV Absolute Neuts (auto) Neutrophils % Lymphocytes % Monocytes % Eosinophils % Basophils % Nucleated RBC % Sodium Potassium Chloride Carbon Dioxide Anion Gap BUN Creatinine Creat Clearance w eGFR POC Glucometer 169 158 Random Glucose Lactic Acid 4.3 H* Calcium Phosphorus Magnesium Total Bilirubin AST ALT Alkaline Phosphatase Total Protein Albumin Blood Type 09/19/18 06:15 WBC RBC Hgb Hct MCV MCH MCHC RDW Plt Count MPV Absolute Neuts (auto) Neutrophils % Lymphocytes % Monocytes % Eosinophils % Basophils % Nucleated RBC % Sodium 138 Potassium 4.2 Chloride 106 Carbon Dioxide 24 Anion Gap 8 BUN 12 Creatinine 1.0 Creat Clearance w eGFR > 60 POC Glucometer Random Glucose 146 H Lactic Acid Calcium 7.8 L Phosphorus 2.2 L Magnesium 1.8 Total Bilirubin AST ALT Alkaline Phosphatase Total Protein Albumin Blood Type Active Medications Generic Name Dose Route Start Last Admin Trade Name Freq PRN Reason Stop Dose Admin Acetaminophen 650 mg 09/17/18 18:46 09/19/18 01:24 Tylenol - PO 650 mg Q6H PRN Administration Fever Or Pain Acetaminophen 650 mg 09/19/18 07:21 Ofirmev Injection - IVPB Q6H PRN FEVER Albuterol/Ipratropium 1 amp 09/19/18 07:18 09/19/18 07:30 Duoneb - NEB 1 amp Q6H PRN Administration SHORTNESS OF BREATH Aspirin 81 mg 09/18/18 10:00 09/18/18 09:38 Asa - PO Not Given DAILY BLAIR Atorvastatin Calcium 5 mg 09/17/18 22:00 09/18/18 22:27 Lipitor - PO 5 mg HS BLAIR Administration Citalopram Hydrobromide 10 mg 09/18/18 10:00 09/18/18 09:38 Celexa - PO 10 mg DAILY BLAIR Administration Docusate Sodium 200 mg 09/17/18 22:00 09/18/18 22:27 Colace - PO 200 mg HS BLAIR Administration Cefepime HCl 1 gm/ Dextrose 100 mls @ 200 mls/hr 09/18/18 18:00 09/19/18 01: 24 IVPB 200 mls/hr Q8H-IV BLAIR Administration Protocol Insulin Aspart 1 vial 09/17/18 22:00 09/19/18 06:14 Novolog Vial Sliding Scale - SQ 2 unit ACHS BLAIR Administration Protocol Metoprolol Tartrate 25 mg 09/19/18 10:00 Lopressor - PO BID BLAIR Nystatin 1 applic 09/18/18 10:00 09/18/18 22:28 Mycostatin Cream - TP 1 applic BID BLAIR Administration Polyethylene Glycol 17 gm 09/18/18 10:00 09/18/18 09:39 Miralax (For Daily Use) - PO 17 grams DAILY BLAIR Administration Ramipril 10 mg 09/19/18 10:00 Altace - PO DAILY BLAIR ASSESSMENT/PLAN: 82 y/o male with PMH of HTN, HLD, DM, dementia, aphasia previous UTI's was brought in from [facility] for urinary retention and found to be septic from a urinary tract infection with gross hematuria #Sepsis 2/2 UTI repeat CXR shows no gross evidence of focal infiltrate of pulmonary venous congestion ; (no significant change from 09/17) -f/u repeat lactic acid -d/c fluids sine patient now is audibly wheezing and sounds crackley -20 IV lasix once -duonebs standing -switched to cefepime yesterday by dr grover -ID consulted -urology on board -f/u renal and bladder U/S: showing enlarged prostate; U/S shows leonard in prostatic urethra with possible mass v. clots -repeat CXR this AM -f/u KUB -IV tylenol PRN for fever -monitor vitals - #HTN -c/w ramipril 10 daily -c/w metoprolol tartrate 25 BID #DM holding oral diabetes medications -ISS -BGMS ACHS #HLD -c/w lipitor 5 HS DVT PPX: heparin 5000 Q8H SQ Problem List - Problems (1) UTI (urinary tract infection) Code(s): N39.0 - URINARY TRACT INFECTION, SITE NOT SPECIFIED (2) HTN (hypertension) Code(s): I10 - ESSENTIAL (PRIMARY) HYPERTENSION (3) HLD (hyperlipidemia) Code(s): E78.5 - HYPERLIPIDEMIA, UNSPECIFIED (4) Diabetes Code(s): E11.9 - TYPE 2 DIABETES MELLITUS WITHOUT COMPLICATIONS Visit type - Emergency Visit Emergency Visit: Yes ED Registration Date: 09/17/18 Care time: The patient presented to the Emergency Department on the above date and was hospitalized for further evaluation of their emergent condition. - New Patient This patient is new to me today: No - Critical Care Critical Care patient: No
[2018-09-19] MEDS ORDERED: PT OWN MED DRAWER 7, Y5N ONE ×2 (08:29→09:45)
[2018-09-19] MEDS: POLYETHYLENE GLYCOL 3350 119 GM BTL PO SCH (09:55)
[2018-09-19] MEDS: METOPROLOL TARTRATE 25 MG TABLET (FP) PO SCH ×2 (09:56→21:56)
[2018-09-19] MEDS: CITALOPRAM HYDROBROMIDE 10 MG TABLET (FP) PO SCH (09:56)
[2018-09-19] MEDS: NYSTATIN 100,000 UNIT/GM TOPICAL CREAM 15 GM TUBE TP SCH ×2 (09:58→21:56)
[2018-09-19] MEDS ORDERED: RAMIPRIL 5 MG CAPSULE (FP) PO SCH (10:00)
--- NOTE | 2018-09-19 11:06 | CONS ---
INFECTIOUS DISEASE CONSULTATION DATE OF CONSULTATION: DATE OF DICTATION: 09/18/2018 REQUESTED BY: Hospitalist service. HISTORY OF PRESENT ILLNESS: This is an 82-year-old man with a history of aphasia who was brought from the long-term for urinary infection. Unfortunately, history and physical were not sent from the long-term and I could not find them on the chart. I tried to call the long-term but was not able to reach anybody at the nursing floor. The patient was admitted with fever. He had an elevated lactic acid. He was noted to have pyuria. He had a Arrieta catheter placed and was started on Zosyn and given fluids. PAST MEDICAL HISTORY: Notable for hypertension, hyperlipidemia, diabetes, dementia and aphasia. SOCIAL HISTORY: Not known. He lives at the long-term in . ALLERGIES: IODINE, LEVOFLOXACIN AND SHELLFISH. MEDICATIONS: Include: 1. Atorvastatin. 2. Aspirin. 3. Colace. 4. Metformin. 5. MiraLAX. 6. Ramipril. REVIEW OF SYSTEMS: He is aphasic and we are not able to get a full review of systems. PHYSICAL EXAMINATION: General: He is alert and able to cooperate. He turned for us in bed on exam and tried his best to cooperate with the exam. Vital Signs: His temperature is 98, pulse 96, blood pressure 133/79, respiratory rate is 18. HEENT: Normocephalic. His eyes are anicteric. Skin: Intact, sacrum, body, including his heels. He has no rash. Lungs: Clear to auscultation. Heart: Regular rate and rhythm. Abdomen: Soft, nontender. Arrieta is draining cloudy, bloody urine. Extremities: Without edema. STUDIES: White count on admission was 10.6, this morning is 8.6. Hemoglobin 10.7. Platelets are 146. BUN 18, creatinine 1.1. The glucose 137. Liver function tests are normal. Urinalysis had 3+ blood with 2991 white cells. Cultures are pending. IN SUMMARY: 1. This is an 82-year-old man admitted from the long-term with fever, pyuria, urinary retention. No other source of infection noted. No history of prior drug resistance per transfer records. Will push cefepime and follow up cultures. Would obtain a renal bladder sonogram as well. 2. History of aphasia. Further recommendations to follow. Phani [id number]
--- NOTE | 2018-09-19 12:00 | PN ---
Teaching Attending Note Name of Resident: Patricia Torres ATTENDING PHYSICIAN STATEMENT I saw and evaluated the patient. I reviewed the resident's note and discussed the case with the resident. I agree with the resident's findings and plan as documented. SUBJECTIVE: fever all night . this am , had resp distress with crackles and wheezes . given IV lasix and improved OBJECTIVE: NAD, awake, non verbal. alert. calm CV: RRR, NO JVD Lungs: CTAB Abd:soft, NT, ND , NL BS Ext : no edema or erythema skin : stage one decub on sacral area ASSESSMENT AND PLAN: 82 y/o man with h/o advanced dementia, non-verbal, HTN, HLP, DM, UTIs, who was sent form [facility] due to fever and hemtauria and was found to have sepsis due to UTI. 1- Sepsis due to complicated UTI. cont to have fever. - follow urine and blood cx. - cont cefepime - team contacted [facility], there is no previous urine cx available - follow lactic acid 2-Resp distress due to fluid overload: possible acute diastolic heart failure - dc IVF - responded to IV lasix x 1 - echo 3- Hematuria: due to infection or bladder mass on US - leonard was flushed - Urologist, Dr. Cooney was notified - follow H&H 4- urinary retention : cont leonard 5- HTN:resume BB . if needed can resume rampiril 6- DM: hold metformin and cont SSI. DVT PX: SCDs
[2018-09-19] MEDS ORDERED: INSULIN (NOVOLOG) ASPART 100 UNITS/ML 10ML VIAL ONE (12:42)
--- NOTE | 2018-09-19 12:47 | CON.GU ---
Consult Consult Specialty:: Urology Reason for Consultation:: Hematuria BPH - History of Present Illness Chief Complaint: Hematuria - History Source History Provided By: Patient, Medical Record - Alcohol/Substance Use Hx Alcohol Use: No - Smoking History Smoking history: Unknown if ever smoked Have you smoked in the past 12 months: No Home Medications - Allergies Allergies/Adverse Reactions: Allergies Allergy/AdvReac Type Severity Reaction Status Date / Time iodine Allergy Verified 09/17/18 14:28 levofloxacin Allergy Verified 09/17/18 14:28 shellfish derived Allergy Verified 09/17/18 14:28 - Home Medications Home Medications: Ambulatory Orders Acetaminophen [Tylenol] 650 mg PO QID 09/17/18 Aspirin [ASA -] 81 mg PO DAILY 09/17/18 Atorvastatin Ca [Lipitor] 5 mg PO HS 09/17/18 Citalopram Hydrobromide [Celexa -] 10 mg PO DAILY 09/17/18 Docusate Sodium 200 mg PO HS 09/17/18 Magnesium Hydroxide [Milk of Magnesia] 400 mg PO DAILY 09/17/18 Metformin HCl [Glucophage] 500 mg PO DAILY 09/17/18 Metoprolol Tartrate 25 mg PO BID 09/17/18 Polyethylene Glycol 3350 [Miralax (For Daily Use) -] 17 gm PO DAILY 09/17/18 Ramipril 10 mg PO DAILY 09/17/18 Physical Exam- Vital Signs: Vital Signs Temperature 100.4 F H 09/19/18 09:16 Pulse Rate 104 H 09/19/18 09:16 Respiratory Rate 20 09/19/18 09:16 Blood Pressure 135/67 09/19/18 09:16 O2 Sat by Pulse Oximetry (%) 97 09/19/18 09:00 Labs: CBC, BMP 09/19/18 06:15 09/19/18 06:15 Imaging - Results Ultrasound: Report Reviewed Problem List - Problems (1) Hematuria Assessment/Plan: 82 yo male w 147 gm prostate recently d/c ed anticoagulation w gross hematuria Leonard to SD draing pink urine kidneys nl on QUYNH leonard in place likely appears in prostatic urethra w lg prostate/ intravesc lobe Follow hct 33 today u cx neg Irrigate prn lective cysto when clears Code(s): R31.9 - HEMATURIA, UNSPECIFIED
--- NOTE | 2018-09-19 14:44 | PN ---
Progress Note (short form) - Note Progress Note: continues to have fever dementia at baseline since 2017 nonverbal per has not been hospitalized since admission to [facility] in 2017! Vital Signs Period Temp Pulse Resp BP Sys/Lozano Pulse Ox Last 24 Hr 98.0 F-102.8 F 82-104 18-22 127-140/59-81 96-97 cor-rrr lungs decreased bs at bases abd soft,nt ext no edema leonard with clear urine CBC, BMP 09/19/18 06:15 09/19/18 06:15 Microbiology 09/17/18 23:00 Urine - Urine - Catheterized Urine Culture - Final NO GROWTH OBTAINED 09/17/18 15:00 Blood - Peripheral Venous Blood Culture - Preliminary NO GROWTH OBTAINED AFTER 24 HOURS, INCUBATION TO CONTINUE FOR 4 DAYS. 09/17/18 15:00 Blood - Peripheral Venous Blood Culture - Preliminary NO GROWTH OBTAINED AFTER 24 HOURS, INCUBATION TO CONTINUE FOR 4 DAYS. renal/bladder sono- ?bladder mass versus clots, large prostate imp/reccd persistent fever- urine culture sent after zosyn was started no objection to switching back to zosyn as it was started prior to antibiotics consider ct scan abd/pelvis if fevers persist will get flu swab as he is intermittently coughing get echo as well- at bedside reports history of MV replacement many years ago followed by replacement of MV due to infection history aphasia Problem List - Problems (1) Fever Code(s): R50.9 - FEVER, UNSPECIFIED (2) UTI (urinary tract infection) Code(s): N39.0 - URINARY TRACT INFECTION, SITE NOT SPECIFIED (3) Urinary retention Code(s): R33.9 - RETENTION OF URINE, UNSPECIFIED
--- NOTE | 2018-09-19 16:12 | ECHO ---
Name: DEANNA ARTEAGA Exam:Adult Echocardiogram Study Date: 09/19/2018 03:02 PM Age: 82 yrs Reason For Study: Volume Overload Height: 67 in Weight: 250 lb BSA: 2.2 m2 MMode/2D Measurements & Calculations Ao root diam: 3.3 cm LVOT diam: 2.0 cm ACS: 1.6 cm TAPSE: 1.7 cm Doppler Measurements & Calculations MV E max abelino: 162.0 cm/sec MVA(VTI): 0.98 cm2 MV A max abelino: 74.7 cm/sec MV V2 max: 195.5 cm/sec MV E/A: 2.2 MV max P.3 mmHg MV V2 mean: 87.2 cm/sec MV mean P.7 mmHg MV V2 VTI: 53.1 cm Ao V2 max: 213.1 cm/sec LV V1 max P.3 mmHg Ao max P.2 mmHg LV V1 mean P.1 mmHg Ao V2 mean: 155.8 cm/sec LV V1 max: 75.9 cm/sec Ao mean P.7 mmHg LV V1 mean: 49.4 cm/sec Ao V2 VTI: 45.5 cm LV V1 VTI: 16.7 cm ROSETTA(I,D): 1.1 cm2 ROSETTA(V,D): 1.1 cm2 SV(LVOT): 51.9 ml Med Peak E' Abelino: 4.7 cm/sec Med E/e': 34.6 Lat Peak E' Abelino: 5.2 cm/sec Lat E/e': 31.0 Procedure A limited two-dimensional transthoracic echocardiogram was performed (2D). The study was technically difficult with many images being suboptimal in quality. Left Ventricle The left ventricular size, thickness and function are normal. The left ventricular ejection fraction is normal. Ejection Fraction = 55-60%. Regional wall motion abnormalities cannot be excluded due to limi simona visualization. Right Ventricle The right ventricle is not well visualized. Atria The left atrial size is normal. Right atrium not well visualized. Mitral Valve There is no mitral regurgitation noted. Tricuspid Valve No tricuspid regurgitation. There was insufficient TR detected to calculate RV systolic pressure. Aortic Valve Mild valvular aortic stenosis. No aortic regurgitation is present. Pulmonic Valve There is no pulmonic valvular regurgitation. Great Vessels The aortic root is normal size. Pericardium/Pleura There is no pericardial effusion. Interpretation Summary The study was technically difficult with many images being suboptimal in quality. The left ventricular size, thickness and function are normal The right ventricle is not well visualized. Mild valvular aortic stenosis. MD Vahid Vuong 09/19/2018 04:12 PM
[2018-09-19] MEDS ORDERED: ACETAMINOPHEN 1000 MG/100 ML VIAL (NON FORMULARY) IVPB ONE (16:45)
[2018-09-19] MEDS ORDERED: PIPERACILLIN/TAZOBACTAM 4.5 GM VIAL IVPB ONE (16:55)
--- NOTE | 2018-09-19 16:59 | PN ---
Progress Note, BACK STAYER - Note Progress Note: Selected Entries 09/19/18 09/19/18 09/19/18 01:41 02:40 05:20 Breakfast Diet Tolerated Lunch Temperature 102.8 F H 100.6 F H 99.9 F H 09/19/18 09/19/18 09/19/18 06:38 09:16 10:39 Breakfast 75% Diet Tolerated Well Lunch Temperature 99.8 F H 100.4 F H 09/19/18 09/19/18 09/19/18 13:20 14:21 14:28 Breakfast Diet Tolerated Well Well Lunch 75% 75% Temperature 101.7 F H 98.2 F 98.2 F On Dys whole diet/thin liquids based on MBS. To follow for further communication evaluation/intervention, if indicated.
[2018-09-19] MEDS: NYSTATIN 500,000 UNITS/5 ML SUSPENSION PO SCH (17:02)
[2018-09-19] MEDS: PIPERACILLIN/TAZOB 4.5 GM 4.5 GM in DEXTROSE 5%-WATER 100 ML IVPB SCH (17:03)
[2018-09-19] MEDS: ATORVASTATIN CA 10 MG TABLET (FP) PO SCH (21:55)
[2018-09-19] MEDS: DOCUSATE SODIUM 100 MG CAPSULE (FP) PO SCH (21:55)
[2018-09-20] MEDS: NYSTATIN 500,000 UNITS/5 ML SUSPENSION PO SCH ×3 (00:29→12:06)
[2018-09-20] MEDS: ALBUTEROL SO4 2.5/IPRATROPIUM 0.5 INH SOL 3 ML VIAL.NEB. NEB PRN ×3 (01:41→21:30)
[2018-09-20] MEDS ORDERED: PIPERACILLIN/TAZOBACTAM 4.5 GM VIAL IVPB ONE ×4 (01:47→17:48)
[2018-09-20] MEDS ORDERED: DEXTROSE 5%-WATER 100 ML IVPB ONE ×4 (01:47→17:48)
[2018-09-20] MEDS: PIPERACILLIN/TAZOB 4.5 GM 4.5 GM in DEXTROSE 5%-WATER 100 ML IVPB SCH ×2 (02:00→11:05)
[2018-09-20] MEDS: ACETAMINOPHEN 325 MG TABLET (FP) PO PRN (02:01)
[2018-09-20] MEDS: INSULIN SLIDING SCALE (NOVOLOG) 1 VIAL SQ SCH ×3 (06:45→22:49)
[2018-09-20 07:14] LABS: HEMATOCRIT 35.5 % (35.4-49); HEMOGLOBIN 12.4 GM/dL (11.7-16.9); MCH 32.1 pg (25.7-33.7); MCHC 35.1 g/dl (32.0-35.9); MEAN CELL VOLUME 91.5 fl (80-96); MEAN PLT VOLUME 8.1 fl (7.5-11.1); PLATELET COUNT 132 K/MM3 (134-434); RBC 3.88 M/mm3 (4.00-5.60); RDW 15.2 % (11.9-15.9); WHITE BLOOD COUNT 6.7 K/mm3 (4.0-10.0)
[2018-09-20 08:09] LABS: ALBUMIN 2.9 g/dl (3.4-5.0); ALK PHOS 123 U/L (45-117); ANION GAP 8 MMOL/L (8-16); BLOOD UREA NITROGEN 12 mg/dL (7-18); CALCIUM 8.4 mg/dL (8.5-10.1); CHLORIDE 102 mmol/L (98-107); CO2 26 mmol/L (21-32); CREATININE 0.9 mg/dL (0.55-1.3); GLUCOSE,RANDOM 147 mg/dL (74-106); MAGNESIUM 1.9 mg/dL (1.8-2.4); PHOSPHOROUS 2.3 mg/dL (2.5-4.9); POTASSIUM 3.9 mmol/L (3.5-5.1); SGOT/AST 94 U/L (15-37); SGPT/ALT 149 U/L (13-61); SODIUM 135 mmol/L (136-145); TOT PROT 6.3 g/dl (6.4-8.2)
--- NOTE | 2018-09-20 09:16 | PN ---
Physical Exam: SUBJECTIVE: Patient seen and examined at bedside- patient still had fevers overnight with some respiratory distress that responded to lasxi- ROS unable to obtain OBJECTIVE: Vital Signs Period Temp Pulse Resp BP Sys/Lozano Pulse Ox Last 24 Hr 98.2 F-101.7 F 80-91 18-24 132-145/59-82 100 GENERAL: The patient is awake, restless EYES: PEERLA; EOMI; no scleral icterus NECK: no JVD: no lympahdenopathy LUNGS:wheezes B/L with crackles at the bases HEART: tachycardic, S1, S2 without murmur, rub or gallop. ABDOMEN: Soft, nontender, nondistended, normoactive bowel sounds, no guarding, no rebound, no hepatosplenomegaly, no masses. EXTREMITIES: 2+ pulses, warm, well-perfused, no edema. PSYCH: Normal mood, normal affect. SKIN: Warm, dry, normal turgor, no rashes or lesions noted Laboratory Results - last 24 hr 09/19/18 09/19/18 09/19/18 11:38 13:40 15:08 WBC RBC Hgb Hct MCV MCH MCHC RDW Plt Count MPV Sodium Potassium Chloride Carbon Dioxide Anion Gap BUN Creatinine Creat Clearance w eGFR POC Glucometer 230 Random Glucose Lactic Acid 3.7 H* Calcium Phosphorus Magnesium Total Bilirubin AST ALT Alkaline Phosphatase Total Protein Albumin Influenza A (Rapid) Negative Influenza B (Rapid) Negative 09/19/18 09/19/18 09/19/18 16:20 21:54 22:30 WBC RBC Hgb Hct MCV MCH MCHC RDW Plt Count MPV Sodium Potassium Chloride Carbon Dioxide Anion Gap BUN Creatinine Creat Clearance w eGFR POC Glucometer 173 187 Random Glucose Lactic Acid 2.1 H Calcium Phosphorus Magnesium Total Bilirubin AST ALT Alkaline Phosphatase Total Protein Albumin Influenza A (Rapid) Influenza B (Rapid) 09/20/18 09/20/18 09/20/18 06:43 06:45 06:45 WBC 6.7 RBC 3.88 L Hgb 12.4 Hct 35.5 MCV 91.5 MCH 32.1 MCHC 35.1 RDW 15.2 Plt Count 132 L MPV 8.1 Sodium 135 L Potassium 3.9 Chloride 102 Carbon Dioxide 26 Anion Gap 8 BUN 12 Creatinine 0.9 Creat Clearance w eGFR > 60 POC Glucometer 143 Random Glucose 147 H Lactic Acid Calcium 8.4 L Phosphorus 2.3 L Magnesium 1.9 Total Bilirubin 1.0 AST 94 H ALT 149 H Alkaline Phosphatase 123 H Total Protein 6.3 L Albumin 2.9 L Influenza A (Rapid) Influenza B (Rapid) 09/20/18 06:45 WBC RBC Hgb Hct MCV MCH MCHC RDW Plt Count MPV Sodium Potassium Chloride Carbon Dioxide Anion Gap BUN Creatinine Creat Clearance w eGFR POC Glucometer Random Glucose Lactic Acid 1.8 Calcium Phosphorus Magnesium Total Bilirubin AST ALT Alkaline Phosphatase Total Protein Albumin Influenza A (Rapid) Influenza B (Rapid) Active Medications Generic Name Dose Route Start Last Admin Trade Name Freq PRN Reason Stop Dose Admin Acetaminophen 650 mg 09/17/18 18:46 09/20/18 02:01 Tylenol - PO 650 mg Q6H PRN Administration PAIN LEVEL 1 - 3 Acetaminophen 1,000 mg 09/19/18 16:01 09/19/18 21:56 Ofirmev Injection - IVPB 1,000 mg Q6H PRN Administration FEVER Albuterol/Ipratropium 1 amp 09/19/18 07:18 09/20/18 07:25 Duoneb - NEB 1 amp Q6H PRN Administration SHORTNESS OF BREATH Aspirin 81 mg 09/18/18 10:00 09/18/18 09:38 Asa - PO Not Given DAILY [facility] Atorvastatin Calcium 5 mg 09/17/18 22:00 09/19/18 21:55 Lipitor - PO 5 mg HS [facility] Administration Citalopram Hydrobromide 10 mg 09/18/18 10:00 09/19/18 09:56 Celexa - PO 10 mg DAILY [facility] Administration Docusate Sodium 200 mg 09/17/18 22:00 09/19/18 21:55 Colace - PO 200 mg HS [facility] Administration Piperacillin Sod/Tazobactam 100 mls @ 200 mls/hr 09/19/18 18:00 09/20/18 02: 00 Sod 4.5 gm/ Dextrose IVPB 200 mls/hr Q8H-IV [facility] Administration Protocol Insulin Aspart 1 vial 09/17/18 22:00 09/20/18 06:45 Novolog Vial Sliding Scale - SQ Not Given ACHS [facility] Protocol Metoprolol Tartrate 25 mg 09/19/18 10:00 09/19/18 21:56 Lopressor - PO 25 mg BID [facility] Administration Nystatin 1 applic 09/18/18 10:00 09/19/18 21:56 Mycostatin Cream - TP 1 applic BID [facility] Administration Nystatin 500,000 units 09/19/18 18:00 09/20/18 06:45 Nystatin Oral Suspension - PO 500,000 units Q6HPO [facility] Administration Polyethylene Glycol 17 gm 09/18/18 10:00 09/19/18 09:55 Miralax (For Daily Use) - PO 17 grams DAILY [facility] Administration ASSESSMENT/PLAN: 82 y/o male with PMH of HTN, HLD, DM, dementia, aphasia previous UTI's was brought in from [facility] for urinary retention and found to be septic from a urinary tract infection with gross hematuria #Sepsis 2/2 UTI repeat chest XRAY shows no change from yesterday repeat blood cx negative thus far -stopping fluids since patient has crackles and wheezing -20 IV lasix PRN -duonebs standing -zosyn day 2 -urology on board -IV tylenol PRN for fever -monitor vitals #HTN -c/w ramipril 10 daily -c/w metoprolol tartrate 25 BID #DM holding oral diabetes medications -ISS -BGMS ACHS #HLD -c/w lipitor 5 HS DVT PPX: heparin 5000 Q8H SQ Problem List - Problems (1) UTI (urinary tract infection) Code(s): N39.0 - URINARY TRACT INFECTION, SITE NOT SPECIFIED (2) HTN (hypertension) Code(s): I10 - ESSENTIAL (PRIMARY) HYPERTENSION (3) HLD (hyperlipidemia) Code(s): E78.5 - HYPERLIPIDEMIA, UNSPECIFIED (4) Diabetes Code(s): E11.9 - TYPE 2 DIABETES MELLITUS WITHOUT COMPLICATIONS Visit type - Emergency Visit Emergency Visit: Yes ED Registration Date: 09/17/18 Care time: The patient presented to the Emergency Department on the above date and was hospitalized for further evaluation of their emergent condition. - New Patient This patient is new to me today: No - Critical Care Critical Care patient: No
--- NOTE | 2018-09-20 10:52 | PN ---
Progress Note (short form) - Note Progress Note: afebrile NAD still with cough (chronic) Vital Signs Period Temp Pulse Resp BP Sys/Lozano Pulse Ox Last 24 Hr 98 F-101.7 F 80-95 18-24 130-145/59-82 98-100 cor-rrr lungs clear abd firm, NT ext no edema leonard clear urine Microbiology 09/17/18 15:00 Blood - Peripheral Venous Blood Culture - Preliminary NO GROWTH OBTAINED AFTER 48 HOURS, INCUBATION TO CONTINUE FOR 3 DAYS. 09/17/18 15:00 Blood - Peripheral Venous Blood Culture - Preliminary NO GROWTH OBTAINED AFTER 48 HOURS, INCUBATION TO CONTINUE FOR 3 DAYS. 09/17/18 23:00 Urine - Urine - Catheterized Urine Culture - Final NO GROWTH OBTAINED CBC, BMP 09/20/18 06:45 09/20/18 06:45 influenza antigen negative Microbiology 09/17/18 15:00 Blood - Peripheral Venous Blood Culture - Preliminary NO GROWTH OBTAINED AFTER 48 HOURS, INCUBATION TO CONTINUE FOR 3 DAYS. 09/17/18 15:00 Blood - Peripheral Venous Blood Culture - Preliminary NO GROWTH OBTAINED AFTER 48 HOURS, INCUBATION TO CONTINUE FOR 3 DAYS. 09/17/18 23:00 Urine - Urine - Catheterized Urine Culture - Final NO GROWTH OBTAINED renal/bladder sono- ?bladder mass versus clots, large prostate imp/reccd fevers resolving suspect urinary source continue zosyn for now consider de-escalating in next 24 hours if repeat cultures are negative unfortunately, antiibotics started before urine culture was sent ?bladder mass vs clots consider ct scan abd/pelvis if fevers persist history aphasia Problem List - Problems (1) Fever Code(s): R50.9 - FEVER, UNSPECIFIED (2) UTI (urinary tract infection) Code(s): N39.0 - URINARY TRACT INFECTION, SITE NOT SPECIFIED (3) Urinary retention Code(s): R33.9 - RETENTION OF URINE, UNSPECIFIED
[2018-09-20] MEDS ORDERED: PT OWN MED DRAWER 7, Y5N ONE (10:56)
[2018-09-20] MEDS: POLYETHYLENE GLYCOL 3350 119 GM BTL PO SCH (11:04)
[2018-09-20] MEDS: NYSTATIN 100,000 UNIT/GM TOPICAL CREAM 15 GM TUBE TP SCH ×2 (11:04→22:50)
[2018-09-20] MEDS: METOPROLOL TARTRATE 25 MG TABLET (FP) PO SCH ×2 (11:04→22:49)
[2018-09-20] MEDS: CITALOPRAM HYDROBROMIDE 10 MG TABLET (FP) PO SCH (11:04)
--- NOTE | 2018-09-20 16:25 | PN ---
Teaching Attending Note Name of Resident: Patricia Torres ATTENDING PHYSICIAN STATEMENT I saw and evaluated the patient. I reviewed the resident's note and discussed the case with the resident. I agree with the resident's findings and plan as documented. SUBJECTIVE: Not able to obtain hx. over night was crackly again and was given lasix OBJECTIVE: NAD, awake, non verbal. alert. calm . R sied tongue white deposit CV: RRR, NO JVD Lungs: bibasilar crackles ( minimal ) Abd:soft, NT, ND , NL BS Ext: no edema or erythema skin : stage one decub on sacral area ASSESSMENT AND PLAN: 82 y/o man with h/o advanced dementia, non-verbal, HTN, HLP, DM, UTIs, who was sent form [facility] due to fever and hemtauria and was found to have sepsis due to UTI. 1- Sepsis due to complicated UTI. improved - follow repeat cx - cont zosyn 2-Resp distress due to fluid overload: possible acute diastolic heart failure - off IVF - lasix as needed. - echo: poor quality 3- Hematuria: due to infection or bladder mass on US - if cystosopy to be done this admission , then will elvira not repeat US, otherwise will do -stable H&H - hold asa for now . 4- urinary retention : cont leonard . might dc tomorrow 5- HTN:cont BB 6- DM: hold metformin and cont SSI. DVT PX: SCDs new information : might have had a MV replacement
[2018-09-20] MEDS ORDERED: FUROSEMIDE 40 MG/4 ML INJECTABLE VIAL IVPUSH ONE (16:44)
[2018-09-20] MEDS: DOCUSATE SODIUM 100 MG CAPSULE (FP) PO SCH (22:49)
[2018-09-20] MEDS: ATORVASTATIN CA 10 MG TABLET (FP) PO SCH (22:49)
[2018-09-20] MEDS ORDERED: ZINC OXIDE 20% TOPICAL OINTMENT 30 GM TUBE TP ONE (23:07)
[2018-09-21] MEDS ORDERED: ZINC OXIDE 20% TOPICAL OINTMENT 30 GM TUBE TP ONE (00:45)
[2018-09-21] MEDS: NYSTATIN 500,000 UNITS/5 ML SUSPENSION PO SCH ×5 (00:50→17:11)
[2018-09-21] MEDS: INSULIN SLIDING SCALE (NOVOLOG) 1 VIAL SQ SCH ×6 (01:15→21:16)
[2018-09-21] MEDS ORDERED: PIPERACILLIN/TAZOBACTAM 4.5 GM VIAL IVPB ONE ×4 (01:28→17:04)
[2018-09-21] MEDS ORDERED: DEXTROSE 5%-WATER 100 ML IVPB ONE ×4 (01:29→17:04)
[2018-09-21] MEDS: PIPERACILLIN/TAZOB 4.5 GM 4.5 GM in DEXTROSE 5%-WATER 100 ML IVPB SCH ×4 (01:46→17:10)
[2018-09-21] MEDS: ACETAMINOPHEN 325 MG TABLET (FP) PO PRN (01:46)
[2018-09-21 07:29] LABS: BASO % 0.2 % (0-2.0); EOS % 1.6 % (0-4.5); HEMATOCRIT 31.8 % (35.4-49); HEMOGLOBIN 10.9 GM/dL (11.7-16.9); MCH 31.2 pg (25.7-33.7); MCHC 34.4 g/dl (32.0-35.9); MEAN CELL VOLUME 90.8 fl (80-96); MONO % 13.9 % (3.8-10.2); NEUT % 72.3 % (42.8-82.8); PLATELET COUNT 153 K/MM3 (134-434); RDW 15.3 % (11.9-15.9); WHITE BLOOD COUNT 6.7 K/mm3 (4.0-10.0)
[2018-09-21 08:02] LABS: ALBUMIN 2.8 g/dl (3.4-5.0); ALK PHOS 128 U/L (45-117); ANION GAP 8 MMOL/L (8-16); BILIRUBIN,TOTAL 0.8 mg/dL (0.2-1); BLOOD UREA NITROGEN 17 mg/dL (7-18); CALCIUM 8.3 mg/dL (8.5-10.1); CHLORIDE 102 mmol/L (98-107); CO2 30 mmol/L (21-32); CREATININE 1.1 mg/dL (0.55-1.3); GLUCOSE,RANDOM 182 mg/dL (74-106); PHOSPHOROUS 2.8 mg/dL (2.5-4.9); POTASSIUM 3.7 mmol/L (3.5-5.1); SGOT/AST 57 U/L (15-37); SGPT/ALT 125 U/L (13-61); SODIUM 139 mmol/L (136-145); TOT PROT 6.2 g/dl (6.4-8.2)
--- NOTE | 2018-09-21 09:43 | PN ---
Physical Exam: SUBJECTIVE: Patient seen and examined at bedside- overnight patient was having minimal urine draining through leonard and bladder scan showed he was retaining almost 1L of fluid in bladder; urology coming to see patient this AM- patient still had fevers overnight OBJECTIVE: Vital Signs Period Temp Pulse Resp BP Sys/Lozano Pulse Ox Last 24 Hr 97.4 F-101.6 F 81-94 18-20 135-158/68-79 98 GENERAL: The patient is sleeping, more lethargic this AM . EYES: PEERLA: EOMI no scleral icterus. NECK: no JVD; no lymphadenopathy. LUNGS:coarse breath sounds B/L; no wheezing appreciated HEART: tachycardic, S1, S2 without murmur, rub or gallop. ABDOMEN: slightly distended; no wincing upon palpation; +BS in all 4 quadrants. EXTREMITIES: 2+ pulses, warm, well-perfused, no edema. PSYCH: Normal mood, normal affect. SKIN: Warm, dry, normal turgor, no rashes or lesions noted Laboratory Results - last 24 hr 09/20/18 09/21/18 09/21/18 12:31 06:30 06:30 WBC 6.7 RBC 3.50 L Hgb 10.9 L Hct 31.8 L MCV 90.8 MCH 31.2 MCHC 34.4 RDW 15.3 Plt Count 153 MPV 8.0 Absolute Neuts (auto) 4.9 Neutrophils % 72.3 Lymphocytes % 12.0 D Monocytes % 13.9 H D Eosinophils % 1.6 D Basophils % 0.2 Nucleated RBC % 0 Sodium 139 Potassium 3.7 Chloride 102 Carbon Dioxide 30 Anion Gap 8 BUN 17 Creatinine 1.1 Creat Clearance w eGFR > 60 POC Glucometer 209 Random Glucose 182 H Calcium 8.3 L Phosphorus 2.8 Magnesium 2.0 Total Bilirubin 0.8 AST 57 H ALT 125 H Alkaline Phosphatase 128 H Total Protein 6.2 L Albumin 2.8 L 09/21/18 06:33 WBC RBC Hgb Hct MCV MCH MCHC RDW Plt Count MPV Absolute Neuts (auto) Neutrophils % Lymphocytes % Monocytes % Eosinophils % Basophils % Nucleated RBC % Sodium Potassium Chloride Carbon Dioxide Anion Gap BUN Creatinine Creat Clearance w eGFR POC Glucometer 179 Random Glucose Calcium Phosphorus Magnesium Total Bilirubin AST ALT Alkaline Phosphatase Total Protein Albumin Active Medications Generic Name Dose Route Start Last Admin Trade Name Freq PRN Reason Stop Dose Admin Acetaminophen 650 mg 09/17/18 18:46 09/21/18 01:46 Tylenol - PO 650 mg Q6H PRN Administration PAIN LEVEL 1 - 3 Acetaminophen 1,000 mg 09/19/18 16:01 09/19/18 21:56 Ofirmev Injection - IVPB 1,000 mg Q6H PRN Administration FEVER Albuterol/Ipratropium 1 amp 09/19/18 07:18 09/20/18 21:30 Duoneb - NEB 1 amp Q6H PRN Administration SHORTNESS OF BREATH Aspirin 81 mg 09/18/18 10:00 09/18/18 09:38 Asa - PO Not Given DAILY [facility] Atorvastatin Calcium 5 mg 09/17/18 22:00 09/20/18 22:49 Lipitor - PO 5 mg HS [facility] Administration Citalopram Hydrobromide 10 mg 09/18/18 10:00 09/20/18 11:04 Celexa - PO 10 mg DAILY [facility] Administration Docusate Sodium 200 mg 09/17/18 22:00 09/20/18 22:49 Colace - PO 200 mg HS [facility] Administration Piperacillin Sod/Tazobactam 100 mls @ 200 mls/hr 09/19/18 18:00 09/21/18 07: 34 Sod 4.5 gm/ Dextrose IVPB Not Given Q8H-IV [facility] Protocol Insulin Aspart 1 vial 09/17/18 22:00 09/21/18 07:17 Novolog Vial Sliding Scale - SQ Not Given ACHS [facility] Protocol Metoprolol Tartrate 25 mg 09/19/18 10:00 09/20/18 22:49 Lopressor - PO 25 mg BID [facility] Administration Nystatin 1 applic 09/18/18 10:00 09/20/18 22:50 Mycostatin Cream - TP 1 applic BID [facility] Administration Nystatin 500,000 units 09/19/18 18:00 09/21/18 07:18 Nystatin Oral Suspension - PO Not Given Q6HPO [facility] Polyethylene Glycol 17 gm 09/18/18 10:00 09/20/18 11:04 Miralax (For Daily Use) - PO 17 grams DAILY [facility] Administration ASSESSMENT/PLAN: 82 y/o male with PMH of HTN, HLD, DM, dementia, aphasia previous UTI's was brought in from [facility] for urinary retention and found to be septic from a urinary tract infection with gross hematuria #Sepsis 2/2 UTI patient had retained close to 1L of urine in his bladder and minimal urine draining from his leonard -?repeat renal/bladder US -ab/pelvis CT w/wo contrast repeat blood cx negative thus far -20 IV lasix PRN -duonebs standing -zosyn day 3 -urology on board -IV tylenol PRN for fever -monitor vitals -if no more fevers potentially deescalate abx as per ID #Transaminitis LFTS and alk phos elevated -abdomen U/S and CT scan pending -trend LFTS #HTN -c/w ramipril 10 daily -c/w metoprolol tartrate 25 BID #DM holding oral diabetes medications -ISS -BGMS ACHS #HLD -c/w lipitor 5 HS DVT PPX: heparin 5000 Q8H SQ Problem List - Problems (1) UTI (urinary tract infection) Code(s): N39.0 - URINARY TRACT INFECTION, SITE NOT SPECIFIED (2) HTN (hypertension) Code(s): I10 - ESSENTIAL (PRIMARY) HYPERTENSION (3) HLD (hyperlipidemia) Code(s): E78.5 - HYPERLIPIDEMIA, UNSPECIFIED (4) Diabetes Code(s): E11.9 - TYPE 2 DIABETES MELLITUS WITHOUT COMPLICATIONS Visit type - Emergency Visit Emergency Visit: Yes ED Registration Date: 09/17/18 Care time: The patient presented to the Emergency Department on the above date and was hospitalized for further evaluation of their emergent condition. - New Patient This patient is new to me today: No - Critical Care Critical Care patient: No
--- NOTE | 2018-09-21 10:12 | PN ---
Progress Note (short form) - Note Progress Note: called to evaluate pt since leonard not draining pt patricia tugging at leonard cath admitted for uti, retention, large prostate new 22 fr leonard reinserted large amount of urine retrieved previous sono reviewed when urine clears will obtain CT scan abdomen /pevis without and with IV contrast may need chronic catheter
[2018-09-21] MEDS: NYSTATIN 100,000 UNIT/GM TOPICAL CREAM 15 GM TUBE TP SCH ×2 (11:04→21:14)
[2018-09-21] MEDS: ASPIRIN 81 MG CHEWABLE TABLETS PO SCH (11:04)
[2018-09-21] MEDS: CITALOPRAM HYDROBROMIDE 10 MG TABLET (FP) PO SCH (11:04)
[2018-09-21] MEDS: METOPROLOL TARTRATE 25 MG TABLET (FP) PO SCH ×2 (11:04→21:13)
--- NOTE | 2018-09-21 11:12 | PN ---
Teaching Attending Note Name of Resident: Patricia Torres ATTENDING PHYSICIAN STATEMENT I saw and evaluated the patient. I reviewed the resident's note and discussed the case with the resident. I agree with the resident's findings and plan as documented. SUBJECTIVE: urinary retention with no drinage through leonard last night. OBJECTIVE: NAD, more lethargic today but arousable and cooperative CV: RRR, NO JVD Lungs: scattered wheezing Abd:soft, NT, ND , NL BS Ext: no edema or erythema ASSESSMENT AND PLAN: 82 y/o man with h/o advanced dementia, non-verbal, HTN, HLP, DM, UTIs, questionable MVR , who was sent form [facility] due to fever and hemtauria and was found to have sepsis due to UTI. 1- Sepsis due to complicated UTI. cont to have fever . - cont Abx - order CT of abd /pelvis to r/o abscess - order US of RUQ in light of new LFTS abnormalities 2-Resp distress due to fluid overload: possible acute diastolic heart failure - off IVF - lasix as needed. - echo: poor quality - will try duonebs for wheezing today . if no improvement , can give lasix 3- Hematuria: due to infection or bladder mass on US - will review CT results - hold asa for now . 4- urinary retention :leonard changed today 5- HTN: cont BB and resume rampiril 6- DM: hold metformin and cont SSI. DVT PX: SCDs
[2018-09-21] MEDS: POLYETHYLENE GLYCOL 3350 119 GM BTL PO SCH (11:15)
--- NOTE | 2018-09-21 12:01 | PN ---
Progress Note, Physician History of Present Illness: NOT VERBALLY RESPONSIVE REMAINS INTERMITTANTLY FEBRILE - Current Medication List Current Medications: Active Medications Acetaminophen (Tylenol -) 650 mg PO Q6H PRN PRN Reason: PAIN LEVEL 1 - 3 Last Admin: 09/21/18 01:46 Dose: 650 mg Acetaminophen (Ofirmev Injection -) 1,000 mg IVPB Q6H PRN PRN Reason: FEVER Last Admin: 09/19/18 21:56 Dose: 1,000 mg Albuterol/Ipratropium (Duoneb -) 1 amp NEB Q6H PRN PRN Reason: SHORTNESS OF BREATH Last Admin: 09/20/18 21:30 Dose: 1 amp Albuterol/Ipratropium (Duoneb -) 1 amp NEB RTID [facility] Aspirin (Asa -) 81 mg PO DAILY [facility] Last Admin: 09/21/18 11:04 Dose: 81 mg Atorvastatin Calcium (Lipitor -) 5 mg PO HS [facility] Last Admin: 09/20/18 22:49 Dose: 5 mg Citalopram Hydrobromide (Celexa -) 10 mg PO DAILY [facility] Last Admin: 09/21/18 11:04 Dose: 10 mg Docusate Sodium (Colace -) 200 mg PO HS [facility] Last Admin: 09/20/18 22:49 Dose: 200 mg Piperacillin Sod/Tazobactam (Sod 4.5 gm/ Dextrose) 100 mls @ 200 mls/hr IVPB Q8H-IV [facility]; Protocol Last Admin: 09/21/18 11:07 Dose: 200 mls/hr Insulin Aspart (Novolog Vial Sliding Scale -) 1 vial SQ ACHS [facility]; Protocol Last Admin: 09/21/18 07:17 Dose: Not Given Metoprolol Tartrate (Lopressor -) 25 mg PO BID [facility] Last Admin: 09/21/18 11:04 Dose: 25 mg Nystatin (Mycostatin Cream -) 1 applic TP BID [facility] Last Admin: 09/21/18 11:04 Dose: 1 applic Nystatin (Nystatin Oral Suspension -) 500,000 units PO Q6HPO [facility] Last Admin: 09/21/18 07:18 Dose: Not Given Polyethylene Glycol (Miralax (For Daily Use) -) 17 gm PO DAILY [facility] Last Admin: 09/21/18 11:15 Dose: 17 grams Ramipril (Altace -) 10 mg PO DAILY [facility] - Objective Vital Signs: Vital Signs Temperature 99 F 09/21/18 06:38 Pulse Rate 81 09/21/18 06:38 Respiratory Rate 20 09/21/18 06:38 Blood Pressure 150/68 09/21/18 06:38 O2 Sat by Pulse Oximetry (%) 98 09/20/18 21:00 Constitutional: Yes: No Distress, Obese Cardiovascular: Yes: Regular Rate and Rhythm, S1, S2 Respiratory: Yes: Diminished Gastrointestinal: Yes: Normal Bowel Sounds, Soft, Abdomen, Obese. No: Tenderness Labs: CBC, BMP 09/21/18 06:30 09/21/18 06:30 INR, PTT INR 1.07 (0.83-1.09) 09/17/18 14:30 Assessment/Plan FEVER ? SOURCE CONTINUE ZOSYN
[2018-09-21] MEDS ORDERED: INSULIN (NOVOLOG) ASPART 100 UNITS/ML 10ML VIAL ONE (13:31)
[2018-09-21] MEDS: ALBUTEROL SO4 2.5/IPRATROPIUM 0.5 INH SOL 3 ML VIAL.NEB. NEB SCH ×2 (14:41→20:59)
[2018-09-21] MEDS: ATORVASTATIN CA 10 MG TABLET (FP) PO SCH (21:13)
[2018-09-21] MEDS: DOCUSATE SODIUM 100 MG CAPSULE (FP) PO SCH (21:14)
[2018-09-22] MEDS ORDERED: DEXTROSE 5%-WATER 100 ML IVPB ONE ×3 (00:29→18:21)
[2018-09-22] MEDS ORDERED: PIPERACILLIN/TAZOBACTAM 4.5 GM VIAL IVPB ONE ×3 (00:29→18:21)
[2018-09-22] MEDS: PIPERACILLIN/TAZOB 4.5 GM 4.5 GM in DEXTROSE 5%-WATER 100 ML IVPB SCH ×3 (01:15→18:00)
[2018-09-22] MEDS: NYSTATIN 500,000 UNITS/5 ML SUSPENSION PO SCH ×4 (01:15→19:34)
[2018-09-22] MEDS: ACETAMINOPHEN 325 MG TABLET (FP) PO PRN (01:18)
[2018-09-22] MEDS: INSULIN SLIDING SCALE (NOVOLOG) 1 VIAL SQ SCH ×4 (06:22→22:48)
[2018-09-22 06:29] LABS: HEMATOCRIT 30.3 % (35.4-49); HEMOGLOBIN 10.4 GM/dL (11.7-16.9); MCH 31.1 pg (25.7-33.7); MCHC 34.3 g/dl (32.0-35.9); MEAN CELL VOLUME 90.7 fl (80-96); MEAN PLT VOLUME 7.7 fl (7.5-11.1); PLATELET COUNT 160 K/MM3 (134-434); RBC 3.34 M/mm3 (4.00-5.60); RDW 15.5 % (11.9-15.9); WHITE BLOOD COUNT 5.7 K/mm3 (4.0-10.0)
[2018-09-22 07:30] LABS: ALBUMIN 2.6 g/dl (3.4-5.0); ALK PHOS 134 U/L (45-117); ANION GAP 6 MMOL/L (8-16); BILIRUBIN,TOTAL 0.6 mg/dL (0.2-1); BLOOD UREA NITROGEN 13 mg/dL (7-18); CALCIUM 8.2 mg/dL (8.5-10.1); CHLORIDE 103 mmol/L (98-107); CO2 29 mmol/L (21-32); GLUCOSE,RANDOM 141 mg/dL (74-106); MAGNESIUM 1.9 mg/dL (1.8-2.4); PHOSPHOROUS 2.9 mg/dL (2.5-4.9); POTASSIUM 3.4 mmol/L (3.5-5.1); SGOT/AST 74 U/L (15-37); SGPT/ALT 99 U/L (13-61); SODIUM 139 mmol/L (136-145); TOT PROT 6.2 g/dl (6.4-8.2)
[2018-09-22] MEDS: ALBUTEROL SO4 2.5/IPRATROPIUM 0.5 INH SOL 3 ML VIAL.NEB. NEB SCH ×3 (07:33→20:02)
[2018-09-22] MEDS: METOPROLOL TARTRATE 25 MG TABLET (FP) PO SCH ×2 (10:00→22:41)
[2018-09-22] MEDS: ASPIRIN 81 MG CHEWABLE TABLETS PO SCH (10:00)
[2018-09-22] MEDS: RAMIPRIL 5 MG CAPSULE (FP) PO SCH (10:00)
[2018-09-22] MEDS: NYSTATIN 100,000 UNIT/GM TOPICAL CREAM 15 GM TUBE TP SCH ×2 (10:00→22:45)
[2018-09-22] MEDS: CITALOPRAM HYDROBROMIDE 10 MG TABLET (FP) PO SCH (10:05)
[2018-09-22] MEDS: POLYETHYLENE GLYCOL 3350 119 GM BTL PO SCH (17:22)
--- NOTE | 2018-09-22 17:26 | PN ---
Progress Note (short form) - Note Progress Note: Subjective: no events Objective: Vital Signs: Last Vital Signs Temp Pulse Resp BP Pulse Ox 98.3 F 86 20 138/74 96 09/22/18 13:45 09/22/18 13:45 09/22/18 13:45 09/22/18 13:45 09/22/18 10:00 Laboratory Results - last 24 hr 09/21/18 09/21/18 09/22/18 17:18 21:15 05:15 WBC 5.7 RBC 3.34 L Hgb 10.4 L Hct 30.3 L MCV 90.7 MCH 31.1 MCHC 34.3 RDW 15.5 Plt Count 160 MPV 7.7 Sodium Potassium Chloride Carbon Dioxide Anion Gap BUN Creatinine Creat Clearance w eGFR POC Glucometer 174 152 Random Glucose Calcium Phosphorus Magnesium Total Bilirubin AST ALT Alkaline Phosphatase Total Protein Albumin 09/22/18 09/22/18 09/22/18 05:15 05:30 12:36 WBC RBC Hgb Hct MCV MCH MCHC RDW Plt Count MPV Sodium 139 Potassium 3.4 L Chloride 103 Carbon Dioxide 29 Anion Gap 6 L BUN 13 Creatinine 1.0 Creat Clearance w eGFR > 60 POC Glucometer 151 142 Random Glucose 141 H Calcium 8.2 L Phosphorus 2.9 Magnesium 1.9 Total Bilirubin 0.6 AST 74 H ALT 99 H Alkaline Phosphatase 134 H Total Protein 6.2 L Albumin 2.6 L Physical Exam: NAD, lethargic . resists eye opening CV: RRR, NO JVD Lungs: CTAB Abd:soft, NT, ND , NL BS Ext: no edema or erythema leonard bag with yellow urine ASSESSMENT AND PLAN: 82 y/o man with h/o advanced dementia, non-verbal, HTN, HLP, DM, UTIs, questionable MVR , who was sent form [facility] due to fever and hemtauria and was found to have sepsis due to UTI. 1- Sepsis due to complicated UTI. - cont Abx - CT of abd /pelvis withno abscess formation - US with sludge but no acute cholecystitis - follow LFTS 2-Resp distress due to fluid overload: possible acute diastolic heart failure - off IVF - lasix as needed. - echo: poor quality 3- Hematuria: due to infection . resolved now - Ct scan with no masses in bladder - hold asa for now . can resume if no recurrence of bleed 4- urinary retention :leonard 5- HTN: cont BB and rampiril 6- DM: hold metformin and cont SSI. DVT PX: SCDs Visit type - Emergency Visit Emergency Visit: Yes ED Registration Date: 09/17/18 Care time: The patient presented to the Emergency Department on the above date and was hospitalized for further evaluation of their emergent condition. - New Patient This patient is new to me today: No - Critical Care Critical Care patient: No
[2018-09-22] MEDS ORDERED: PT OWN MED DRAWER 7, Y5N ONE (22:26)
[2018-09-22] MEDS: DOCUSATE SODIUM 100 MG CAPSULE (FP) PO SCH (22:40)
[2018-09-22] MEDS: ATORVASTATIN CA 10 MG TABLET (FP) PO SCH (22:41)
[2018-09-23] MEDS ORDERED: PIPERACILLIN/TAZOBACTAM 4.5 GM VIAL IVPB ONE ×3 (00:23→17:17)
[2018-09-23] MEDS ORDERED: DEXTROSE 5%-WATER 100 ML IVPB ONE ×3 (00:23→17:17)
[2018-09-23] MEDS: NYSTATIN 500,000 UNITS/5 ML SUSPENSION PO SCH ×5 (02:28→23:40)
[2018-09-23] MEDS: PIPERACILLIN/TAZOB 4.5 GM 4.5 GM in DEXTROSE 5%-WATER 100 ML IVPB SCH ×3 (02:28→17:19)
[2018-09-23] MEDS: INSULIN SLIDING SCALE (NOVOLOG) 1 VIAL SQ SCH ×4 (06:11→22:11)
[2018-09-23 07:32] LABS: ALBUMIN 2.8 g/dl (3.4-5.0); ALK PHOS 163 U/L (45-117); ANION GAP 8 MMOL/L (8-16); BILIRUBIN,TOTAL 0.8 mg/dL (0.2-1); BLOOD UREA NITROGEN 14 mg/dL (7-18); CALCIUM 8.6 mg/dL (8.5-10.1); CHLORIDE 106 mmol/L (98-107); CO2 29 mmol/L (21-32); CREATININE 0.9 mg/dL (0.55-1.3); GLUCOSE,RANDOM 146 mg/dL (74-106); POTASSIUM 3.8 mmol/L (3.5-5.1); SGOT/AST 35 U/L (15-37); SGPT/ALT 88 U/L (13-61); SODIUM 143 mmol/L (136-145); TOT PROT 6.3 g/dl (6.4-8.2)
[2018-09-23] MEDS: ALBUTEROL SO4 2.5/IPRATROPIUM 0.5 INH SOL 3 ML VIAL.NEB. NEB SCH ×3 (07:35→21:05)
--- NOTE | 2018-09-23 08:23 | PN ---
Physical Exam: SUBJECTIVE: Patient seen and examined OBJECTIVE: Vital Signs Period Temp Pulse Resp BP Sys/Lozano Pulse Ox Last 24 Hr 97.8 F-98.6 F 81-92 20-20 138-172/74-87 96-98 GENERAL: The patient is awake, alert, and fully oriented, in no acute distress. HEAD: Normal with no signs of trauma. EYES: PERRL, extraocular movements intact, sclera anicteric, conjunctiva clear. No ptosis. ENT: Ears normal, nares patent, oropharynx clear without exudates, moist mucous membranes. NECK: Trachea midline, full range of motion, supple. LUNGS: Breath sounds equal, clear to auscultation bilaterally, no wheezes, no crackles, no accessory muscle use. HEART: Regular rate and rhythm, S1, S2 without murmur, rub or gallop. ABDOMEN: Soft, nontender, nondistended, normoactive bowel sounds, no guarding, no rebound, no hepatosplenomegaly, no masses. EXTREMITIES: 2+ pulses, warm, well-perfused, no edema. NEUROLOGICAL: Cranial nerves II through XII grossly intact. Normal speech, gait not observed. PSYCH: Normal mood, normal affect. SKIN: Warm, dry, normal turgor, no rashes or lesions noted Laboratory Results - last 24 hr 09/22/18 09/22/18 09/22/18 12:36 17:32 22:47 Sodium Potassium Chloride Carbon Dioxide Anion Gap BUN Creatinine Creat Clearance w eGFR POC Glucometer 142 172 261 Random Glucose Calcium Total Bilirubin AST ALT Alkaline Phosphatase Total Protein Albumin 09/23/18 09/23/18 05:25 06:10 Sodium 143 Potassium 3.8 Chloride 106 Carbon Dioxide 29 Anion Gap 8 BUN 14 Creatinine 0.9 Creat Clearance w eGFR > 60 POC Glucometer 146 Random Glucose 146 H Calcium 8.6 Total Bilirubin 0.8 AST 35 ALT 88 H Alkaline Phosphatase 163 H Total Protein 6.3 L Albumin 2.8 L Active Medications Generic Name Dose Route Start Last Admin Trade Name Freq PRN Reason Stop Dose Admin Acetaminophen 650 mg 09/21/18 16:08 09/22/18 01:18 Tylenol - PO 650 mg Q6H PRN Administration FEVER Albuterol/Ipratropium 1 amp 09/19/18 07:18 09/20/18 21:30 Duoneb - NEB 1 amp Q6H PRN Administration SHORTNESS OF BREATH Albuterol/Ipratropium 1 amp 09/21/18 14:00 09/23/18 07:35 Duoneb - NEB 1 amp RTID BLAIR Administration Aspirin 81 mg 09/18/18 10:00 09/22/18 10:00 Asa - PO 81 mg DAILY BLAIR Administration Atorvastatin Calcium 5 mg 09/17/18 22:00 09/22/18 22:41 Lipitor - PO 5 mg HS BLAIR Administration Citalopram Hydrobromide 10 mg 09/18/18 10:00 09/22/18 10:05 Celexa - PO 10 mg DAILY BLAIR Administration Docusate Sodium 200 mg 09/17/18 22:00 09/22/18 22:40 Colace - PO 200 mg HS BLAIR Administration Piperacillin Sod/Tazobactam 100 mls @ 200 mls/hr 09/19/18 18:00 09/23/18 02: 28 Sod 4.5 gm/ Dextrose IVPB 200 mls/hr Q8H-IV BLAIR Administration Protocol Insulin Aspart 1 vial 09/17/18 22:00 09/23/18 06:11 Novolog Vial Sliding Scale - SQ Not Given ACHS BLAIR Protocol Metoprolol Tartrate 25 mg 09/19/18 10:00 09/22/18 22:41 Lopressor - PO 25 mg BID BLAIR Administration Nystatin 1 applic 09/18/18 10:00 09/22/18 22:45 Mycostatin Cream - TP 1 applic BID BLAIR Administration Nystatin 500,000 units 09/19/18 18:00 09/23/18 05:21 Nystatin Oral Suspension - PO 500,000 units Q6HPO BLAIR Administration Polyethylene Glycol 17 gm 09/18/18 10:00 09/22/18 17:22 Miralax (For Daily Use) - PO Not Given DAILY BLAIR Ramipril 10 mg 09/22/18 10:00 09/22/18 10:00 Altace - PO 10 mg DAILY BLAIR Administration ASSESSMENT/PLAN: 82 y/o male with PMH of HTN, HLD, DM, dementia, aphasia previous UTI's was brought in from [facility] for urinary retention and found to be septic from a urinary tract infection with gross hematuria #Sepsis 2/2 UTI patient has remained afebrile for 24 hours ab/pelvis CT w/wo contrast done showing no evidence of abscess; -20 IV lasix PRN -duonebs standing -zosyn day 5 -IV tylenol PRN for fever -monitor vitals -if no more fevers potentially deescalate abx as per ID #Transaminitis LFTS and alk phos elevated -abdomen U/S and CT scan done showing small gallstones with some sludge but no evidence of acute cholecystitis -trend LFTS #HTN -c/w ramipril 10 daily -c/w metoprolol tartrate 25 BID #DM holding oral diabetes medications -ISS -BGMS ACHS #HLD -c/w lipitor 5 HS DVT PPX: heparin 5000 Q8H SQ Problem List - Problems (1) UTI (urinary tract infection) Code(s): N39.0 - URINARY TRACT INFECTION, SITE NOT SPECIFIED (2) HTN (hypertension) Code(s): I10 - ESSENTIAL (PRIMARY) HYPERTENSION (3) HLD (hyperlipidemia) Code(s): E78.5 - HYPERLIPIDEMIA, UNSPECIFIED (4) Diabetes Code(s): E11.9 - TYPE 2 DIABETES MELLITUS WITHOUT COMPLICATIONS Visit type - Emergency Visit Emergency Visit: Yes ED Registration Date: 09/17/18 Care time: The patient presented to the Emergency Department on the above date and was hospitalized for further evaluation of their emergent condition. - New Patient This patient is new to me today: No - Critical Care Critical Care patient: No
[2018-09-23] MEDS: POLYETHYLENE GLYCOL 3350 119 GM BTL PO SCH (10:38)
[2018-09-23] MEDS: CITALOPRAM HYDROBROMIDE 10 MG TABLET (FP) PO SCH (10:38)
[2018-09-23] MEDS: METOPROLOL TARTRATE 25 MG TABLET (FP) PO SCH ×2 (10:38→22:08)
[2018-09-23] MEDS: NYSTATIN 100,000 UNIT/GM TOPICAL CREAM 15 GM TUBE TP SCH ×2 (10:39→22:08)
[2018-09-23] MEDS: RAMIPRIL 5 MG CAPSULE (FP) PO SCH (10:39)
[2018-09-23] MEDS: ASPIRIN 81 MG CHEWABLE TABLETS PO SCH (10:39)
--- NOTE | 2018-09-23 12:01 | PN ---
Teaching Attending Note Name of Resident: Patricia Torres ATTENDING PHYSICIAN STATEMENT I saw and evaluated the patient. I reviewed the resident's note and discussed the case with the resident. I agree with the resident's findings and plan as documented. SUBJECTIVE: unable to obtain hx. no events over night OBJECTIVE: NAD, awake. CV: RRR, NO JVD Lungs: L base crackles Abd: soft, NT, ND , NL BS Ext: no edema or erythema leonard bag with yellow urine ASSESSMENT AND PLAN: 82 y/o man with h/o advanced dementia, non-verbal, HTN, HLP, DM, UTIs, questionable MVR , who was sent form [facility] due to fever and hemtauria and was found to have sepsis due to UTI. 1- Sepsis due to complicated UTI. - cont Abx, on zosyn still. ID eval pending for today - CT of abd /pelvis with no abscess formation - LFTS improved , but Alk phos is still increasing. No RUQ tenderness. if Alk phos continue to increase might need MRCP to r/o other source of his sepsis 2-Acute acute diastolic heart failure : resolved - off IVF - lasix as needed. - echo: poor quality 3- Hematuria: due to infection . resolved now - Ct scan with no masses in bladder - resume asa 4- Transaminitis: ? sepsis or transient hypotension or CBD stone - cont to monitor Alk phos , to determine need for MRCP 5- urinary retention :leonard 6- HTN: cont BB and Rampiril 7- DM: hold metformin and cont SSI. DVT PX: SCDs
--- NOTE | 2018-09-23 14:33 | PN ---
Progress Note (short form) - Note Progress Note: afebrile NAD leonard replaced by urology over the weekend Vital Signs Period Temp Pulse Resp BP Sys/Lozano Pulse Ox Last 24 Hr 98.1 F-99.3 F 80-89 18-20 133-154/63-78 98 cor-rrr lungs clear abd soft,nt ext no edema leonard in place CBC, BMP 09/22/18 05:15 09/23/18 06:10 Microbiology 09/19/18 11:38 Blood - Peripheral Venous Blood Culture - Preliminary NO GROWTH OBTAINED AFTER 96 HOURS, INCUBATION TO CONTINUE FOR 1 DAYS. 09/19/18 11:20 Blood - Peripheral Venous Blood Culture - Preliminary NO GROWTH OBTAINED AFTER 96 HOURS, INCUBATION TO CONTINUE FOR 1 DAYS. 09/17/18 15:00 Blood - Peripheral Venous Blood Culture - Final NO GROWTH AFTER 5 DAYS INCUBATION 09/17/18 15:00 Blood - Peripheral Venous Blood Culture - Final NO GROWTH AFTER 5 DAYS INCUBATION 09/17/18 23:00 Urine - Urine - Catheterized Urine Culture - Final NO GROWTH OBTAINED imp/reccd fevers resolving suspect urinary source continue zosyn for now- day #6 elevated alk phos-liver sono and ct scan noted- no cholycystitis urinary retention- still with leonard catheter history aphasia Problem List - Problems (1) Fever Code(s): R50.9 - FEVER, UNSPECIFIED (2) UTI (urinary tract infection) Code(s): N39.0 - URINARY TRACT INFECTION, SITE NOT SPECIFIED (3) Urinary retention Code(s): R33.9 - RETENTION OF URINE, UNSPECIFIED
[2018-09-23] MEDS: ACETAMINOPHEN 325 MG TABLET (FP) PO PRN (17:19)
[2018-09-23] MEDS: DOCUSATE SODIUM 100 MG CAPSULE (FP) PO SCH (22:07)
[2018-09-23] MEDS: ATORVASTATIN CA 10 MG TABLET (FP) PO SCH (22:08)
[2018-09-24] MEDS ORDERED: PIPERACILLIN/TAZOBACTAM 4.5 GM VIAL IVPB ONE ×3 (01:08→16:03)
[2018-09-24] MEDS ORDERED: DEXTROSE 5%-WATER 100 ML IVPB ONE ×3 (01:08→16:03)
[2018-09-24] MEDS: PIPERACILLIN/TAZOB 4.5 GM 4.5 GM in DEXTROSE 5%-WATER 100 ML IVPB SCH ×3 (02:06→17:18)
[2018-09-24] MEDS: ACETAMINOPHEN 325 MG TABLET (FP) PO PRN ×3 (02:07→18:30)
[2018-09-24] MEDS: NYSTATIN 500,000 UNITS/5 ML SUSPENSION PO SCH ×4 (05:30→23:10)
[2018-09-24] MEDS: INSULIN SLIDING SCALE (NOVOLOG) 1 VIAL SQ SCH ×4 (06:58→22:28)
[2018-09-24 07:18] LABS: HEMATOCRIT 31.7 % (35.4-49); HEMOGLOBIN 10.8 GM/dL (11.7-16.9); MCH 31.1 pg (25.7-33.7); MCHC 34.2 g/dl (32.0-35.9); MEAN CELL VOLUME 91.1 fl (80-96); MEAN PLT VOLUME 7.4 fl (7.5-11.1); PLATELET COUNT 253 K/MM3 (134-434); RBC 3.48 M/mm3 (4.00-5.60); RDW 15.5 % (11.9-15.9); WHITE BLOOD COUNT 7.4 K/mm3 (4.0-10.0)
[2018-09-24] MEDS: ALBUTEROL SO4 2.5/IPRATROPIUM 0.5 INH SOL 3 ML VIAL.NEB. NEB SCH ×3 (07:25→20:59)
[2018-09-24 07:54] LABS: ALK PHOS 168 U/L (45-117); ANION GAP 9 MMOL/L (8-16); BLOOD UREA NITROGEN 14 mg/dL (7-18); CALCIUM 9.1 mg/dL (8.5-10.1); CHLORIDE 106 mmol/L (98-107); CO2 27 mmol/L (21-32); CREATININE 1.1 mg/dL (0.55-1.3); GLUCOSE,RANDOM 215 mg/dL (74-106); MAGNESIUM 1.9 mg/dL (1.8-2.4); PHOSPHOROUS 2.8 mg/dL (2.5-4.9); POTASSIUM 3.8 mmol/L (3.5-5.1); SGOT/AST 27 U/L (15-37); SGPT/ALT 74 U/L (13-61); SODIUM 142 mmol/L (136-145)
[2018-09-24] MEDS: NYSTATIN 100,000 UNIT/GM TOPICAL CREAM 15 GM TUBE TP SCH ×2 (09:52→22:24)
[2018-09-24] MEDS: METOPROLOL TARTRATE 25 MG TABLET (FP) PO SCH ×2 (09:53→22:24)
[2018-09-24] MEDS: RAMIPRIL 5 MG CAPSULE (FP) PO SCH (09:53)
[2018-09-24] MEDS: CITALOPRAM HYDROBROMIDE 10 MG TABLET (FP) PO SCH (09:53)
[2018-09-24] MEDS: ASPIRIN 81 MG CHEWABLE TABLETS PO SCH (09:53)
[2018-09-24] MEDS: POLYETHYLENE GLYCOL 3350 119 GM BTL PO SCH (09:54)
--- NOTE | 2018-09-24 13:43 | PN ---
Physical Exam: SUBJECTIVE: Patient seen and examined at bedside- patient spiked fevers overnight however does not appear in any distress- leonard is draining with no hematuria present OBJECTIVE: Vital Signs Period Temp Pulse Resp BP Sys/Lozano Pulse Ox Last 24 Hr 97.7 F-100.9 F 80-101 20-20 140-154/70-84 96 GENERAL: The patient is awake, alert, and fully oriented, in no acute distress. EYES:PEERLA; EOMI; no scleral icterus. NECK: no JVD; no lypmhadenopathy LUNGS:CTA BL; no rales; rhonchi or wheezing HEART: Regular rate and rhythm, S1, S2 without murmur, rub or gallop. ABDOMEN: Soft,slight tenderness upon palpation; +BS. EXTREMITIES: 2+ pulses, warm, well-perfused, no edema. . PSYCH: Normal mood, normal affect. SKIN: Warm, dry, normal turgor, no rashes or lesions noted Laboratory Results - last 24 hr 09/23/18 09/23/18 09/24/18 17:11 22:10 06:25 WBC 7.4 RBC 3.48 L Hgb 10.8 L Hct 31.7 L MCV 91.1 MCH 31.1 MCHC 34.2 RDW 15.5 Plt Count 253 D MPV 7.4 L Sodium Potassium Chloride Carbon Dioxide Anion Gap BUN Creatinine Creat Clearance w eGFR POC Glucometer 225 231 Random Glucose Calcium Phosphorus Magnesium AST ALT Alkaline Phosphatase 09/24/18 09/24/18 09/24/18 06:25 06:57 11:23 WBC RBC Hgb Hct MCV MCH MCHC RDW Plt Count MPV Sodium 142 Potassium 3.8 Chloride 106 Carbon Dioxide 27 Anion Gap 9 BUN 14 Creatinine 1.1 Creat Clearance w eGFR > 60 POC Glucometer 225 226 Random Glucose 215 H Calcium 9.1 Phosphorus 2.8 Magnesium 1.9 AST 27 ALT 74 H Alkaline Phosphatase 168 H Active Medications Generic Name Dose Route Start Last Admin Trade Name Freq PRN Reason Stop Dose Admin Acetaminophen 650 mg 09/21/18 16:08 09/24/18 09:57 Tylenol - PO 650 mg Q6H PRN Administration FEVER Albuterol/Ipratropium 1 amp 09/19/18 07:18 09/20/18 21:30 Duoneb - NEB 1 amp Q6H PRN Administration SHORTNESS OF BREATH Albuterol/Ipratropium 1 amp 09/21/18 14:00 09/24/18 07:25 Duoneb - NEB 1 amp RTID BLAIR Administration Aspirin 81 mg 09/18/18 10:00 09/24/18 09:53 Asa - PO 81 mg DAILY BLAIR Administration Atorvastatin Calcium 5 mg 09/17/18 22:00 09/23/18 22:08 Lipitor - PO 5 mg HS BLAIR Administration Citalopram Hydrobromide 10 mg 09/18/18 10:00 09/24/18 09:53 Celexa - PO 10 mg DAILY BLAIR Administration Docusate Sodium 200 mg 09/17/18 22:00 09/23/18 22:07 Colace - PO 200 mg HS BLAIR Administration Piperacillin Sod/Tazobactam 100 mls @ 200 mls/hr 09/19/18 18:00 09/24/18 09: 53 Sod 4.5 gm/ Dextrose IVPB 200 mls/hr Q8H-IV BLAIR Administration Protocol Insulin Aspart 1 vial 09/17/18 22:00 09/24/18 11:40 Novolog Vial Sliding Scale - SQ 4 units ACHS BLAIR Administration Protocol Metoprolol Tartrate 25 mg 09/19/18 10:00 09/24/18 09:53 Lopressor - PO 25 mg BID BLAIR Administration Nystatin 1 applic 09/18/18 10:00 09/24/18 09:52 Mycostatin Cream - TP 1 applic BID BLAIR Administration Nystatin 500,000 units 09/19/18 18:00 09/24/18 11:42 Nystatin Oral Suspension - PO 500,000 units Q6HPO BLAIR Administration Polyethylene Glycol 17 gm 09/18/18 10:00 09/24/18 09:54 Miralax (For Daily Use) - PO Not Given DAILY BLAIR Ramipril 10 mg 09/22/18 10:00 09/24/18 09:53 Altace - PO 10 mg DAILY BLAIR Administration ASSESSMENT/PLAN: 82 y/o male with PMH of HTN, HLD, DM, dementia, aphasia previous UTI's was brought in from [facility] for urinary retention and found to be septic from a urinary tract infection with gross hematuria #Sepsis 2/2 UTI patient spiking fevers again overnight ab/pelvis CT w/wo contrast done showing no evidence of abscess; -zosyn day 7 -IV tylenol PRN for fever -monitor vitals #Transaminitis LFTS downtrending however Alk Phos uptrending -trend LFTS and alk phos -MRCP ordered #HTN -c/w ramipril 10 daily -c/w metoprolol tartrate 25 BID #DM holding oral diabetes medications -ISS -BGMS ACHS #HLD -c/w lipitor 5 HS Problem List - Problems (1) UTI (urinary tract infection) Code(s): N39.0 - URINARY TRACT INFECTION, SITE NOT SPECIFIED (2) HTN (hypertension) Code(s): I10 - ESSENTIAL (PRIMARY) HYPERTENSION (3) HLD (hyperlipidemia) Code(s): E78.5 - HYPERLIPIDEMIA, UNSPECIFIED (4) Diabetes Code(s): E11.9 - TYPE 2 DIABETES MELLITUS WITHOUT COMPLICATIONS Visit type - Emergency Visit Emergency Visit: Yes ED Registration Date: 09/17/18 Care time: The patient presented to the Emergency Department on the above date and was hospitalized for further evaluation of their emergent condition. - New Patient This patient is new to me today: No - Critical Care Critical Care patient: No
--- NOTE | 2018-09-24 16:37 | PN ---
Progress Note, FLANGING MACHINE OPERATOR - Note Progress Note: Selected Entries 09/23/18 09/23/18 09/23/18 05:40 09:33 10:21 Breakfast 75% Lunch Supper Temperature 98.6 F 99.3 F 09/23/18 09/23/18 09/23/18 13:50 19:54 19:57 Breakfast Lunch 75% Supper 75% Temperature 98.1 F 97.7 F 09/23/18 09/24/18 09/24/18 22:00 06:19 10:00 Breakfast Lunch Supper Temperature 98.8 F 100.2 F H 100.9 F H 09/24/18 13:47 Breakfast Lunch 50% Supper Temperature 98.1 F Laboratory Tests 09/24/18 06:25 WBC 7.4 On Dys whole diet/thin liquids based on MBS.3/6. Pt tolerating diet, however, intermittent cough observed by staff not clearly associated with PO intake. Pending repeat CXR. Communication board created for pt 3 way discrimination but pt reclining on his side, unable to use it. Potential to use is questionable but will try again. Pt follows some simple commands and shakes head/y/n. Suggest-Trial of nectar thick liquid
--- NOTE | 2018-09-24 16:45 | PN ---
Progress Note (short form) - Note Progress Note: low grade temps alert Vital Signs Period Temp Pulse Resp BP Sys/Lozano Pulse Ox Last 24 Hr 97.7 F-100.9 F 82-101 20-20 140-151/63-84 96-96 cor-rrr lungs decreased bs at bases abd soft,nt ext no edema CBC, BMP 09/24/18 06:25 09/24/18 06:25 imp/reccd low grade fevers- ?aspiration repeat cxray today continue zosyn for now- day #7 elevated alk phos-liver sono and ct scan noted- no cholycystitis urinary retention- still with leonard catheter history aphasia Problem List - Problems (1) Fever Code(s): R50.9 - FEVER, UNSPECIFIED (2) UTI (urinary tract infection) Code(s): N39.0 - URINARY TRACT INFECTION, SITE NOT SPECIFIED (3) Urinary retention Code(s): R33.9 - RETENTION OF URINE, UNSPECIFIED
[2018-09-24] MEDS ORDERED: INSULIN (NOVOLOG) ASPART 100 UNITS/ML 10ML VIAL ONE (17:33)
--- NOTE | 2018-09-24 19:02 | PN ---
Teaching Attending Note Name of Resident: Patricia Torres ATTENDING PHYSICIAN STATEMENT I saw and evaluated the patient. I reviewed the resident's note and discussed the case with the resident. I agree with the resident's findings and plan as documented. SUBJECTIVE: no events , but continued fever OBJECTIVE: NAD, awake. CV: RRR, NO JVD Lungs: L base crackles Ext: no edema or erythema leonard bag with yellow urine ASSESSMENT AND PLAN: 82 y/o man with h/o advanced dementia, non-verbal, HTN, HLP, DM, UTIs, questionable MVR , who was sent form [facility] due to fever and hemtauria and was found to have sepsis due to UTI. 1- Sepsis due to complicated UTI. - cont zosyn - LFTS improved , but Alk phos is still increasing. MRCP 2-Acute acute diastolic heart failure: resolved - off IVF - lasix as needed. 3- Hematuria: due to infection . resolved now 4- Transaminitis: ? sepsis or transient hypotension or CBD stone -MRCP 5- urinary retention :leonard 6- HTN: cont BB and Rampiril 7- DM: hold metformin and cont SSI. DVT PX: SCDs
[2018-09-24] MEDS: ATORVASTATIN CA 10 MG TABLET (FP) PO SCH (22:24)
[2018-09-24] MEDS: DOCUSATE SODIUM 100 MG CAPSULE (FP) PO SCH (22:24)
[2018-09-24] MEDS: HEPARIN NA (PORCINE) 5,000 UNITS/ML 1ML VIAL SQ SCH (22:24)
[2018-09-25] MEDS ORDERED: PIPERACILLIN/TAZOBACTAM 4.5 GM VIAL IVPB ONE ×3 (00:45→18:38)
[2018-09-25] MEDS ORDERED: DEXTROSE 5%-WATER 100 ML IVPB ONE ×3 (00:46→18:38)
[2018-09-25] MEDS: ACETAMINOPHEN 325 MG TABLET (FP) PO PRN ×2 (01:49→06:52)
[2018-09-25] MEDS: PIPERACILLIN/TAZOB 4.5 GM 4.5 GM in DEXTROSE 5%-WATER 100 ML IVPB SCH ×4 (01:49→18:45)
[2018-09-25] MEDS ORDERED: ACETAMINOPHEN 325 MG TABLET (FP) PO ONE (04:15)
[2018-09-25] MEDS: NYSTATIN 500,000 UNITS/5 ML SUSPENSION PO SCH ×4 (05:35→23:02)
[2018-09-25] MEDS: HEPARIN NA (PORCINE) 5,000 UNITS/ML 1ML VIAL SQ SCH ×3 (06:51→22:40)
[2018-09-25] MEDS: INSULIN SLIDING SCALE (NOVOLOG) 1 VIAL SQ SCH ×4 (07:01→22:44)
[2018-09-25] MEDS ORDERED: ACETAMINOPHEN 1000 MG/100 ML VIAL (NON FORMULARY) IVPB PRN ×2 (07:31→08:55)
[2018-09-25 07:33] LABS: HEMOGLOBIN 11.5 GM/dL (11.7-16.9); MCHC 34.7 g/dl (32.0-35.9); MEAN CELL VOLUME 92.1 fl (80-96); MEAN PLT VOLUME 7.9 fl (7.5-11.1); PLATELET COUNT 299 K/MM3 (134-434); RBC 3.59 M/mm3 (4.00-5.60); RDW 15.7 % (11.9-15.9); WHITE BLOOD COUNT 9.2 K/mm3 (4.0-10.0)
[2018-09-25] MEDS: ALBUTEROL SO4 2.5/IPRATROPIUM 0.5 INH SOL 3 ML VIAL.NEB. NEB SCH ×3 (07:35→20:09)
--- NOTE | 2018-09-25 07:58 | PN ---
Physical Exam: SUBJECTIVE: Patient seen and examined at bedside- patient still spiking fevers and is more restless- supposed to hopefully be getting an MRCP tonight. CXR shows more atelectasis developing OBJECTIVE: Vital Signs Period Temp Pulse Resp BP Sys/Lozano Pulse Ox Last 24 Hr 98.1 F-102.7 F 82-109 20-20 148-165/63-84 96-96 GENERAL: The patient is awake, alert, restless. EYES: PEERLA: EOMI; no scleral icterus NECK: no JVD; no lymphadenopathy. LUNGS:wheezes in upper lung ley with coarse breath sounds. HEART: Regular rate and rhythm, S1, S2 without murmur, rub or gallop. ABDOMEN: Soft, nontender, nondistended, normoactive bowel sounds, no guarding, no rebound, no hepatosplenomegaly, no masses. EXTREMITIES: 2+ pulses, warm, well-perfused, no edema. PSYCH: Normal mood, normal affect. SKIN: Warm, dry, normal turgor, no rashes or lesions noted Laboratory Results - last 24 hr 09/24/18 09/24/18 09/24/18 11:23 17:17 22:27 POC Glucometer 226 305 342 09/25/18 06:56 POC Glucometer 233 Active Medications Generic Name Dose Route Start Last Admin Trade Name Freq PRN Reason Stop Dose Admin Acetaminophen 650 mg 09/21/18 16:08 09/25/18 06:52 Tylenol - PO 650 mg Q6H PRN Administration FEVER Acetaminophen 650 mg 09/25/18 07:31 Ofirmev Injection - IVPB Q6H PRN FEVER Albuterol/Ipratropium 1 amp 09/19/18 07:18 09/20/18 21:30 Duoneb - NEB 1 amp Q6H PRN Administration SHORTNESS OF BREATH Albuterol/Ipratropium 1 amp 09/21/18 14:00 09/24/18 20:59 Duoneb - NEB 1 amp RTID BLAIR Administration Aspirin 81 mg 09/18/18 10:00 09/24/18 09:53 Asa - PO 81 mg DAILY BLAIR Administration Atorvastatin Calcium 5 mg 09/17/18 22:00 09/24/18 22:24 Lipitor - PO 5 mg HS BLAIR Administration Citalopram Hydrobromide 10 mg 09/18/18 10:00 09/24/18 09:53 Celexa - PO 10 mg DAILY BLAIR Administration Docusate Sodium 200 mg 09/17/18 22:00 09/24/18 22:24 Colace - PO 200 mg HS BLAIR Administration Heparin Sodium (Porcine) 5,000 unit 09/24/18 22:00 09/25/18 06:51 Heparin - SQ 5,000 unit TID BLAIR Administration Piperacillin Sod/Tazobactam 100 mls @ 200 mls/hr 09/19/18 18:00 09/25/18 02: 33 Sod 4.5 gm/ Dextrose IVPB 200 mls/hr Q8H-IV BLAIR Administration Protocol Insulin Aspart 1 vial 09/17/18 22:00 09/25/18 07:01 Novolog Vial Sliding Scale - SQ 4 units ACHS BLAIR Administration Protocol Metoprolol Tartrate 25 mg 09/19/18 10:00 09/24/18 22:24 Lopressor - PO 25 mg BID BLAIR Administration Nystatin 1 applic 09/18/18 10:00 09/24/18 22:24 Mycostatin Cream - TP 1 applic BID BLAIR Administration Nystatin 500,000 units 09/19/18 18:00 09/25/18 05:35 Nystatin Oral Suspension - PO 500,000 units Q6HPO BLAIR Administration Polyethylene Glycol 17 gm 09/18/18 10:00 09/24/18 09:54 Miralax (For Daily Use) - PO Not Given DAILY BLAIR Ramipril 10 mg 09/22/18 10:00 09/24/18 09:53 Altace - PO 10 mg DAILY BLAIR Administration ASSESSMENT/PLAN: 82 y/o male with PMH of HTN, HLD, DM, dementia, aphasia previous UTI's was brought in from [facility] for urinary retention and found to be septic from a urinary tract infection with gross hematuria #Sepsis 2/2 UTI patient spiking fevers again overnight ab/pelvis CT w/wo contrast done showing no evidence of abscess; -zosyn day 8 -IV tylenol PRN for fever -monitor vitals #Transaminitis LFTS downtrending however Alk Phos uptrending -trend LFTS and alk phos -MRCP ordered -Elevated GGT #HTN -c/w ramipril 10 daily -c/w metoprolol tartrate 25 BID #DM holding oral diabetes medications -ISS -BGMS ACHS #HLD -c/w lipitor 5 HS Problem List - Problems (1) UTI (urinary tract infection) Code(s): N39.0 - URINARY TRACT INFECTION, SITE NOT SPECIFIED (2) HTN (hypertension) Code(s): I10 - ESSENTIAL (PRIMARY) HYPERTENSION (3) HLD (hyperlipidemia) Code(s): E78.5 - HYPERLIPIDEMIA, UNSPECIFIED (4) Diabetes Code(s): E11.9 - TYPE 2 DIABETES MELLITUS WITHOUT COMPLICATIONS Visit type - Emergency Visit Emergency Visit: Yes ED Registration Date: 09/17/18 Care time: The patient presented to the Emergency Department on the above date and was hospitalized for further evaluation of their emergent condition. - New Patient This patient is new to me today: No - Critical Care Critical Care patient: No
[2018-09-25 09:12] LABS: BLOOD UREA NITROGEN 16 mg/dL (7-18); CREATININE 1.4 mg/dL (0.55-1.3); GLUCOSE,RANDOM 234 mg/dL (74-106); SODIUM 147 mmol/L (136-145)
[2018-09-25 09:13] LABS: ANION GAP 11 MMOL/L (8-16); CALCIUM 9.3 mg/dL (8.5-10.1); CHLORIDE 111 mmol/L (98-107); CO2 25 mmol/L (21-32); MAGNESIUM 2.1 mg/dL (1.8-2.4); PHOSPHOROUS 3.6 mg/dL (2.5-4.9); POTASSIUM 3.9 mmol/L (3.5-5.1)
[2018-09-25 09:19] LABS: ALK PHOS 145 U/L (45-117); BILIRUBIN,TOTAL 0.9 mg/dL (0.2-1); SGOT/AST 50 U/L (15-37); SGPT/ALT 64 U/L (13-61); TOT PROT 7.1 g/dl (6.4-8.2)
--- NOTE | 2018-09-25 09:23 | PN ---
Teaching Attending Note Name of Resident: Patricia Torres ATTENDING PHYSICIAN STATEMENT I saw and evaluated the patient. I reviewed the resident's note and discussed the case with the resident. I agree with the resident's findings and plan as documented. SUBJECTIVE: Patient continues to have fever. OBJECTIVE: Vital Signs Temperature 100.8 F H 09/25/18 05:57 Pulse Rate 109 H 09/25/18 05:57 Respiratory Rate 20 09/25/18 05:57 Blood Pressure 154/80 09/25/18 05:57 O2 Sat by Pulse Oximetry (%) 96 09/24/18 21:00 Initial Vital Signs Pulse Pulse Ox 110 H 98 09/17/18 14:21 09/17/18 14:21 GENERAL: The patient is awake, answers to questions ,in no acute distress. HEAD: Normal with no signs of trauma. EYES: PERRL, extraocular movements intact, sclera anicteric, conjunctiva clear. ENT: Ears normal, oropharynx clear without exudates, moist mucous membranes. NECK: Trachea midline, full range of motion, supple. LUNGS: decreased Breath sounds bl, no wheezes, no crackles, no accessory muscle use. HEART: tachycardic , S1, S2 without murmur, rub or gallop. ABDOMEN: Soft, NT,ND,normoactive bowel sounds, no guarding, no rebound, no hepatosplenomegaly, no masses. EXTREMITIES: 2+ pulses, warm, well-perfused, no edema. NEUROLOGICAL: Cranial nerves II through XII grossly intact. gait not observed. PSYCH: Normal mood, normal affect. SKIN: Warm, dry, normal turgor, no rashes or lesions noted CBCD WBC 9.2 K/mm3 (4.0-10.0) 09/25/18 06:30 RBC 3.59 M/mm3 (4.00-5.60) L 09/25/18 06:30 Hgb 11.5 GM/dL (11.7-16.9) L 09/25/18 06:30 Hct 33.0 % (35.4-49) L 09/25/18 06:30 MCV 92.1 fl (80-96) 09/25/18 06:30 MCHC 34.7 g/dl (32.0-35.9) 09/25/18 06:30 RDW 15.7 % (11.9-15.9) 09/25/18 06:30 Plt Count 299 K/MM3 (134-434) 09/25/18 06:30 MPV 7.9 fl (7.5-11.1) 09/25/18 06:30 CMP Sodium 147 mmol/L (136-145) H 09/25/18 06:30 Potassium 3.9 mmol/L (3.5-5.1) 09/25/18 06:30 Chloride 111 mmol/L (98-107) H 09/25/18 06:30 Carbon Dioxide 25 mmol/L (21-32) 09/25/18 06:30 Anion Gap 11 MMOL/L (8-16) 09/25/18 06:30 BUN 16 mg/dL (7-18) 09/25/18 06:30 Creatinine 1.4 mg/dL (0.55-1.3) H 09/25/18 06:30 Creat Clearance w eGFR 48.40 (>60) 09/25/18 06:30 Random Glucose 234 mg/dL (74-106) H 09/25/18 06:30 Calcium 9.3 mg/dL (8.5-10.1) 09/25/18 06:30 Total Bilirubin 0.9 mg/dL (0.2-1) 09/25/18 06:30 AST 50 U/L (15-37) H 09/25/18 06:30 ALT 64 U/L (13-61) H 09/25/18 06:30 Alkaline Phosphatase 145 U/L (45-117) H 09/25/18 06:30 Total Protein 7.1 g/dl (6.4-8.2) 09/25/18 06:30 Albumin 3.0 g/dl (3.4-5.0) L 09/25/18 06:30 Current Medications Generic Name Dose Route Start Last Admin Trade Name Freq PRN Reason Stop Dose Admin Acetaminophen 1,000 mg 09/25/18 08:55 Ofirmev Injection - IVPB Q6H PRN FEVER Albuterol/Ipratropium 1 amp 09/19/18 07:18 09/20/18 21:30 Duoneb - NEB 1 amp Q6H PRN Administration SHORTNESS OF BREATH Albuterol/Ipratropium 1 amp 09/21/18 14:00 09/24/18 20:59 Duoneb - NEB 1 amp RTID BLAIR Administration Aspirin 81 mg 09/18/18 10:00 09/24/18 09:53 Asa - PO 81 mg DAILY BLAIR Administration Atorvastatin Calcium 5 mg 09/17/18 22:00 09/24/18 22:24 Lipitor - PO 5 mg HS BLAIR Administration Citalopram Hydrobromide 10 mg 09/18/18 10:00 09/24/18 09:53 Celexa - PO 10 mg DAILY BLAIR Administration Docusate Sodium 200 mg 09/17/18 22:00 09/24/18 22:24 Colace - PO 200 mg HS BLAIR Administration Heparin Sodium (Porcine) 5,000 unit 09/24/18 22:00 09/25/18 06:51 Heparin - SQ 5,000 unit TID BLAIR Administration Piperacillin Sod/Tazobactam 100 mls @ 200 mls/hr 09/19/18 18:00 09/25/18 02: 33 Sod 4.5 gm/ Dextrose IVPB 200 mls/hr Q8H-IV BLAIR Administration Protocol Insulin Aspart 1 vial 09/17/18 22:00 09/25/18 07:01 Novolog Vial Sliding Scale - SQ 4 units ACHS BLAIR Administration Protocol Metoprolol Tartrate 25 mg 09/19/18 10:00 09/24/18 22:24 Lopressor - PO 25 mg BID BLAIR Administration Nystatin 1 applic 09/18/18 10:00 09/24/18 22:24 Mycostatin Cream - TP 1 applic BID BLAIR Administration Nystatin 500,000 units 09/19/18 18:00 09/25/18 05:35 Nystatin Oral Suspension - PO 500,000 units Q6HPO BLAIR Administration Polyethylene Glycol 17 gm 09/18/18 10:00 09/24/18 09:54 Miralax (For Daily Use) - PO Not Given DAILY [facility] Ramipril 10 mg 09/22/18 10:00 09/24/18 09:53 Altace - PO 10 mg DAILY BLAIR Administration Home Medications Medication Instructions Recorded Acetaminophen [Tylenol] 650 mg PO QID 09/17/18 Aspirin [ASA -] 81 mg PO DAILY 09/17/18 Atorvastatin Ca [Lipitor] 5 mg PO HS 09/17/18 Citalopram Hydrobromide [Celexa -] 10 mg PO DAILY 09/17/18 Docusate Sodium 200 mg PO HS 09/17/18 Magnesium Hydroxide [Milk of 400 mg PO DAILY 09/17/18 Magnesia] Metformin HCl [Glucophage] 500 mg PO DAILY 09/17/18 Metoprolol Tartrate 25 mg PO BID 09/17/18 Polyethylene Glycol 3350 [Miralax 17 gm PO DAILY 09/17/18 (For Daily Use) -] Ramipril 10 mg PO DAILY 09/17/18 ASSESSMENT AND PLAN: 82 y/o man with h/o advanced dementia, non-verbal, HTN, HLP, DM, UTIs, questionable MVR , who was sent form [facility] due to fever and hemtauria and was found to have sepsis due to UTI. # Sepsis due to complicated UTI, continues to have low grade fever on Zosyn IV continue , will monitor #Acute acute diastolic heart failure: s/p IVF , lasix as needed. # Hematuria: due to infection . resolved now # Acute Transaminitis:trending down . # urinary retention :leonard continue care # HTN: cont BB and Rampiril # DM: hold metformin and cont SSI. DVT PX: SCDs
[2018-09-25] MEDS ORDERED: PT OWN MED DRAWER 7, Y5N ONE (10:51)
[2018-09-25] MEDS: ASPIRIN 81 MG CHEWABLE TABLETS PO SCH (11:03)
[2018-09-25] MEDS: METOPROLOL TARTRATE 25 MG TABLET (FP) PO SCH ×2 (11:03→22:41)
[2018-09-25] MEDS: CITALOPRAM HYDROBROMIDE 10 MG TABLET (FP) PO SCH (11:03)
[2018-09-25] MEDS: RAMIPRIL 5 MG CAPSULE (FP) PO SCH (11:03)
[2018-09-25] MEDS: POLYETHYLENE GLYCOL 3350 119 GM BTL PO SCH (11:04)
[2018-09-25] MEDS: NYSTATIN 100,000 UNIT/GM TOPICAL CREAM 15 GM TUBE TP SCH ×2 (11:04→22:42)
--- NOTE | 2018-09-25 11:42 | PN ---
Progress Note, [employer] - Note Progress Note: Selected Entries 09/23/18 09/23/18 09/23/18 05:40 09:33 10:21 Breakfast 75% Lunch Supper Temperature 98.6 F 99.3 F 09/23/18 09/23/18 09/23/18 13:50 19:54 19:57 Breakfast Lunch 75% Supper 75% Temperature 98.1 F 97.7 F 09/23/18 09/24/18 09/24/18 22:00 06:19 10:00 Breakfast Lunch Supper Temperature 98.8 F 100.2 F H 100.9 F H 09/24/18 13:47 Breakfast Lunch 50% Supper Temperature 98.1 F Laboratory Tests 09/24/18 06:25 WBC 7.4 Selected Entries 09/24/18 09/24/18 09/25/18 13:47 19:20 02:05 Breakfast 50% Lunch 50% Supper 75% Temperature 102.7 F H 09/25/18 09/25/18 05:57 10:02 Breakfast 0 Lunch Supper Temperature 100.8 F H Laboratory Tests 09/25/18 06:30 WBC 9.2 On Dys whole diet/thin liquids based on MBS.3/6. Pt tolerating diet, however, intermittent cough observed by staff not clearly associated with PO intake. CXR noted. Febrile Suggest- nectar thick liquid
[2018-09-25] MEDS ORDERED: INSULIN (NOVOLOG) ASPART 100 UNITS/ML 10ML VIAL ONE ×2 (11:55→21:37)
[2018-09-25] MEDS ORDERED: INSULIN (LEVEMIR) 100 UNITS/ML UNITS SQ ONE (11:56)
[2018-09-25 13:14] LABS: GAMMA GLUTAMYL TRANSPEPTIDASE 168 U/L (5-85)
[2018-09-25] MEDS ORDERED: diphenhydrAMINE HCL 25 MG CAPSULE (FP) PO ONE (16:12)
--- NOTE | 2018-09-25 18:14 | PN ---
Progress Note (short form) - Note Progress Note: intermittent fevers Vital Signs Period Temp Pulse Resp BP Sys/Lozano Pulse Ox Last 24 Hr 99.1 F-102.7 F 91-109 20-20 145-156/66-91 96-96 cor-rrr lungs decreased bs at bases abd soft,nt ext no edema +loenard CBC, BMP 09/25/18 06:30 09/25/18 06:30 Microbiology 09/24/18 08:20 Blood - Arterial Blood Culture - Preliminary NO GROWTH OBTAINED AFTER 24 HOURS, INCUBATION TO CONTINUE FOR 4 DAYS. 09/24/18 08:10 Blood - Arterial Blood Culture - Preliminary NO GROWTH OBTAINED AFTER 24 HOURS, INCUBATION TO CONTINUE FOR 4 DAYS. 09/19/18 11:38 Blood - Peripheral Venous Blood Culture - Final NO GROWTH AFTER 5 DAYS INCUBATION 09/19/18 11:20 Blood - Peripheral Venous Blood Culture - Final NO GROWTH AFTER 5 DAYS INCUBATION 09/17/18 15:00 Blood - Peripheral Venous Blood Culture - Final NO GROWTH AFTER 5 DAYS INCUBATION 09/17/18 15:00 Blood - Peripheral Venous Blood Culture - Final NO GROWTH AFTER 5 DAYS INCUBATION 09/17/18 23:00 Urine - Urine - Catheterized Urine Culture - Final NO GROWTH OBTAINED imp/reccd low grade fevers- ?aspiration repeat cxray unchanged- would consider chest ct to r/o pneumonia continue zosyn for now- day #8- if mrcp is negative and chest ct is negative would d/c antiibotics and observe elevated alk phos-liver sono and ct scan noted- no cholycystitis-scheduled for MRCP urinary retention- still with leonard catheter history aphasia check esr /crp Problem List - Problems (1) Fever Code(s): R50.9 - FEVER, UNSPECIFIED (2) UTI (urinary tract infection) Code(s): N39.0 - URINARY TRACT INFECTION, SITE NOT SPECIFIED (3) Urinary retention Code(s): R33.9 - RETENTION OF URINE, UNSPECIFIED
[2018-09-25] MEDS: ATORVASTATIN CA 10 MG TABLET (FP) PO SCH (22:41)
[2018-09-25] MEDS: DOCUSATE SODIUM 100 MG CAPSULE (FP) PO SCH (22:42)
[2018-09-26] MEDS ORDERED: DEXTROSE 5%-WATER 100 ML IVPB ONE ×3 (01:23→17:16)
[2018-09-26] MEDS ORDERED: PIPERACILLIN/TAZOBACTAM 4.5 GM VIAL IVPB ONE ×3 (01:23→17:15)
[2018-09-26] MEDS: PIPERACILLIN/TAZOB 4.5 GM 4.5 GM in DEXTROSE 5%-WATER 100 ML IVPB SCH ×3 (03:23→17:24)
[2018-09-26] MEDS: HEPARIN NA (PORCINE) 5,000 UNITS/ML 1ML VIAL SQ SCH ×3 (05:36→22:50)
[2018-09-26] MEDS: NYSTATIN 500,000 UNITS/5 ML SUSPENSION PO SCH ×3 (05:36→17:22)
[2018-09-26] MEDS: INSULIN SLIDING SCALE (NOVOLOG) 1 VIAL SQ SCH ×4 (06:04→23:05)
[2018-09-26] MEDS: ALBUTEROL SO4 2.5/IPRATROPIUM 0.5 INH SOL 3 ML VIAL.NEB. NEB SCH ×3 (07:35→20:42)
[2018-09-26 07:56] LABS: HEMATOCRIT 34.6 % (35.4-49); HEMOGLOBIN 11.6 GM/dL (11.7-16.9); MCH 30.7 pg (25.7-33.7); MCHC 33.5 g/dl (32.0-35.9); MEAN CELL VOLUME 91.7 fl (80-96); MEAN PLT VOLUME 7.5 fl (7.5-11.1); PLATELET COUNT 351 K/MM3 (134-434); RBC 3.77 M/mm3 (4.00-5.60); WHITE BLOOD COUNT 10.6 K/mm3 (4.0-10.0)
[2018-09-26 08:37] LABS: ALBUMIN 3.1 g/dl (3.4-5.0); ALK PHOS 127 U/L (45-117); ANION GAP 7 MMOL/L (8-16); BILIRUBIN,TOTAL 1.8 mg/dL (0.2-1); BLOOD UREA NITROGEN 19 mg/dL (7-18); CALCIUM 9.4 mg/dL (8.5-10.1); CHLORIDE 113 mmol/L (98-107); CO2 29 mmol/L (21-32); CREATININE 1.2 mg/dL (0.55-1.3); GLUCOSE,RANDOM 181 mg/dL (74-106); MAGNESIUM 2.1 mg/dL (1.8-2.4); PHOSPHOROUS 3.3 mg/dL (2.5-4.9); POTASSIUM 3.5 mmol/L (3.5-5.1); SGOT/AST 32 U/L (15-37); SGPT/ALT 55 U/L (13-61); SODIUM 149 mmol/L (136-145); TOT PROT 7.3 g/dl (6.4-8.2)
[2018-09-26] MEDS ORDERED: PT OWN MED DRAWER 7, Y5N ONE ×2 (10:41→20:03)
[2018-09-26] MEDS: SODIUM CHLORIDE 0.45% 1,000 ML IV SCH (11:14)
[2018-09-26] MEDS: CITALOPRAM HYDROBROMIDE 10 MG TABLET (FP) PO SCH (11:16)
[2018-09-26] MEDS: METOPROLOL TARTRATE 25 MG TABLET (FP) PO SCH ×2 (11:16→22:51)
[2018-09-26] MEDS: ASPIRIN 81 MG CHEWABLE TABLETS PO SCH (11:17)
[2018-09-26] MEDS: RAMIPRIL 5 MG CAPSULE (FP) PO SCH (11:17)
[2018-09-26] MEDS: NYSTATIN 100,000 UNIT/GM TOPICAL CREAM 15 GM TUBE TP SCH ×2 (11:17→22:52)
[2018-09-26] MEDS: POLYETHYLENE GLYCOL 3350 119 GM BTL PO SCH (11:19)
[2018-09-26] MEDS ORDERED: INSULIN (NOVOLOG) ASPART 100 UNITS/ML 10ML VIAL ONE (11:36)
--- NOTE | 2018-09-26 12:34 | PN ---
Progress Note, DIESEL [employer] MECH[employer]IC - Note Progress Note: Selected Entries 09/25/18 09/25/18 09/25/18 02:05 05:57 10:00 Breakfast Lunch Temperature 102.7 F H 100.8 F H 100.2 F H 09/25/18 09/25/18 09/25/18 10:02 15:22 17:49 Breakfast 25% Lunch 25% Temperature 99.1 F 99.5 F 09/25/18 09/25/18 09/25/18 18:46 22:00 23:11 Breakfast Lunch 0 Temperature 99.0 F 99.7 F H 09/26/18 09/26/18 05:59 10:00 Breakfast Lunch Temperature 99.3 F 100 F H Laboratory Tests 09/25/18 09/26/18 06:30 06:15 WBC 9.2 10.6 H Now on nectar thick liquids. Although pt did not aspirate on thin liquid during MBS, suspect possible aspiration. ID rec noted. Per staff, reports coughing after meals "for years."
--- NOTE | 2018-09-26 14:15 | PN ---
Physical Exam: SUBJECTIVE: Patient seen and examined at bedside patient could not lay down for MRCP last night; no fevers overnight OBJECTIVE: Vital Signs Period Temp Pulse Resp BP Sys/Lozano Pulse Ox Last 24 Hr 99.0 F-100 F 90-117 20-20 145-162/73-87 96 GENERAL: The patient is awake, alert, and fully oriented, in no acute distress. EYES:PEERLA: EOMI; no scleral icterus. NECK: no JVD; no lymphadenopathy LUNGS: CTA B/L; no rales, rhonchi or wheezing. HEART: Regular rate and rhythm, S1, S2 without murmur, rub or gallop. ABDOMEN: Soft, no wincing upon palpation. EXTREMITIES: 2+ pulses, warm, well-perfused, no edema. PSYCH: Normal mood, normal affect. SKIN: Warm, dry, normal turgor, no rashes or lesions noted Laboratory Results - last 24 hr 09/25/18 09/25/18 09/26/18 17:05 22:44 05:34 WBC RBC Hgb Hct MCV MCH MCHC RDW Plt Count MPV ESR Sodium Potassium Chloride Carbon Dioxide Anion Gap BUN Creatinine Creat Clearance w eGFR POC Glucometer 207 221 208 Random Glucose Calcium Phosphorus Magnesium Total Bilirubin AST ALT Alkaline Phosphatase C-Reactive Protein Total Protein Albumin 09/26/18 09/26/18 09/26/18 06:15 06:15 06:15 WBC 10.6 H RBC 3.77 L Hgb 11.6 L Hct 34.6 L MCV 91.7 MCH 30.7 MCHC 33.5 RDW 16.0 H Plt Count 351 MPV 7.5 ESR Sodium 149 H Potassium 3.5 Chloride 113 H Carbon Dioxide 29 Anion Gap 7 L BUN 19 H Creatinine 1.2 Creat Clearance w eGFR 57.82 POC Glucometer Random Glucose 181 H Calcium 9.4 Phosphorus 3.3 Magnesium 2.1 Total Bilirubin 1.8 H AST 32 ALT 55 Alkaline Phosphatase 127 H C-Reactive Protein 7.2 H Cancelled Total Protein 7.3 Albumin 3.1 L 09/26/18 09/26/18 06:15 11:29 WBC RBC Hgb Hct MCV MCH MCHC RDW Plt Count MPV ESR 93 H Sodium Potassium Chloride Carbon Dioxide Anion Gap BUN Creatinine Creat Clearance w eGFR POC Glucometer 223 Random Glucose Calcium Phosphorus Magnesium Total Bilirubin AST ALT Alkaline Phosphatase C-Reactive Protein Total Protein Albumin Active Medications Generic Name Dose Route Start Last Admin Trade Name Freq PRN Reason Stop Dose Admin Acetaminophen 1,000 mg 09/25/18 08:55 09/25/18 12:20 Ofirmev Injection - IVPB 1,000 mg Q6H PRN Administration FEVER Albuterol/Ipratropium 1 amp 09/19/18 07:18 09/20/18 21:30 Duoneb - NEB 1 amp Q6H PRN Administration SHORTNESS OF BREATH Albuterol/Ipratropium 1 amp 09/21/18 14:00 09/26/18 13:45 Duoneb - NEB Not Given RTID BLAIR Aspirin 81 mg 09/18/18 10:00 09/26/18 11:17 Asa - PO 81 mg DAILY BLAIR Administration Atorvastatin Calcium 5 mg 09/17/18 22:00 09/25/18 22:41 Lipitor - PO 5 mg HS BLAIR Administration Citalopram Hydrobromide 10 mg 09/18/18 10:00 09/26/18 11:16 Celexa - PO 10 mg DAILY BLAIR Administration Docusate Sodium 200 mg 09/17/18 22:00 09/25/18 22:42 Colace - PO 200 mg HS BLAIR Administration Heparin Sodium (Porcine) 5,000 unit 09/24/18 22:00 09/26/18 13:28 Heparin - SQ 5,000 unit TID BLAIR Administration Piperacillin Sod/Tazobactam 100 mls @ 200 mls/hr 09/19/18 18:00 09/26/18 11: 15 Sod 4.5 gm/ Dextrose IVPB 200 mls/hr Q8H-IV BLAIR Administration Protocol Sodium Chloride 1,000 mls @ 50 mls/hr 09/26/18 11:00 09/26/18 11:14 1/2 Normal Saline IV 09/27/18 10:59 50 mls/hr ASDIR BLAIR Administration Insulin Aspart 1 vial 09/17/18 22:00 09/26/18 11:35 Novolog Vial Sliding Scale - SQ 4 units ACHS BLAIR Administration Protocol Metoprolol Tartrate 25 mg 09/19/18 10:00 09/26/18 11:16 Lopressor - PO 25 mg BID BLAIR Administration Nystatin 1 applic 09/18/18 10:00 09/26/18 11:17 Mycostatin Cream - TP 1 applic BID BLAIR Administration Nystatin 500,000 units 09/19/18 18:00 09/26/18 13:27 Nystatin Oral Suspension - PO 500,000 units Q6HPO BLAIR Administration Polyethylene Glycol 17 gm 09/18/18 10:00 09/26/18 11:19 Miralax (For Daily Use) - PO Not Given DAILY BLAIR Ramipril 10 mg 09/22/18 10:00 09/26/18 11:17 Altace - PO 10 mg DAILY BLAIR Administration ASSESSMENT/PLAN: 82 y/o male with PMH of HTN, HLD, DM, dementia, aphasia previous UTI's was brought in from [facility] for urinary retention and found to be septic from a urinary tract infection with gross hematuria #Sepsis 2/2 UTI patient did not spike fevers overngiht -zosyn day 9 -IV tylenol PRN for fever -monitor vitals #Transaminitis LFTS downtrending however Alk Phos still elevated and Tbilli elevated with now elevated WBC and GGT -trend LFTS and alk phos -patient could not lay down for MRCP last night; re-ordered abdomen US instead -Elevated GGT #HTN -c/w ramipril 10 daily -c/w metoprolol tartrate 25 BID #DM holding oral diabetes medications -ISS -BGMS ACHS #HLD -c/w lipitor 5 HS Problem List - Problems (1) UTI (urinary tract infection) Code(s): N39.0 - URINARY TRACT INFECTION, SITE NOT SPECIFIED (2) HTN (hypertension) Code(s): I10 - ESSENTIAL (PRIMARY) HYPERTENSION (3) HLD (hyperlipidemia) Code(s): E78.5 - HYPERLIPIDEMIA, UNSPECIFIED (4) Diabetes Code(s): E11.9 - TYPE 2 DIABETES MELLITUS WITHOUT COMPLICATIONS Visit type - Emergency Visit Emergency Visit: Yes ED Registration Date: 09/17/18 Care time: The patient presented to the Emergency Department on the above date and was hospitalized for further evaluation of their emergent condition. - New Patient This patient is new to me today: No - Critical Care Critical Care patient: No
--- NOTE | 2018-09-26 18:45 | PN ---
Progress Note (short form) - Note Progress Note: intermittent fevers Vital Signs Period Temp Pulse Resp BP Sys/Lozano Pulse Ox Last 24 Hr 99.0 F-100 F 90-117 20-20 152-162/66-87 96 cor-rrr lungs decreased bs at bases abd soft, nt ext- no edema CBC, BMP 09/26/18 06:15 09/26/18 06:15 Microbiology 09/24/18 08:20 Blood - Arterial Blood Culture - Preliminary NO GROWTH OBTAINED AFTER 48 HOURS, INCUBATION TO CONTINUE FOR 3 DAYS. 09/24/18 08:10 Blood - Arterial Blood Culture - Preliminary NO GROWTH OBTAINED AFTER 48 HOURS, INCUBATION TO CONTINUE FOR 3 DAYS. 09/19/18 11:38 Blood - Peripheral Venous Blood Culture - Final NO GROWTH AFTER 5 DAYS INCUBATION 09/19/18 11:20 Blood - Peripheral Venous Blood Culture - Final NO GROWTH AFTER 5 DAYS INCUBATION 09/17/18 15:00 Blood - Peripheral Venous Blood Culture - Final NO GROWTH AFTER 5 DAYS INCUBATION 09/17/18 15:00 Blood - Peripheral Venous Blood Culture - Final NO GROWTH AFTER 5 DAYS INCUBATION 09/17/18 23:00 Urine - Urine - Catheterized Urine Culture - Final NO GROWTH OBTAINED leonard in place imp/reccd low grade fevers- ?aspiration repeat cxray unchanged- would consider chest ct to r/o pneumonia d/c zosyn- continues to have fever will re-evaluate elevated alk phos-liver sono and ct scan noted- no cholycystitis- BS sono repeated - unremarkable urinary retention- still with leonard catheter history aphasia d/w hospitalist Problem List - Problems (1) Fever Code(s): R50.9 - FEVER, UNSPECIFIED (2) UTI (urinary tract infection) Code(s): N39.0 - URINARY TRACT INFECTION, SITE NOT SPECIFIED (3) Urinary retention Code(s): R33.9 - RETENTION OF URINE, UNSPECIFIED
--- NOTE | 2018-09-26 20:42 | PN ---
Teaching Attending Note Name of Resident: Patricia Torres ATTENDING PHYSICIAN STATEMENT I saw and evaluated the patient. I reviewed the resident's note and discussed the case with the resident. I agree with the resident's findings and plan as documented. SUBJECTIVE: Patient continues to have fever on and off. OBJECTIVE: Vital Signs Temperature 100 F H 09/26/18 19:21 Pulse Rate 99 H 09/26/18 19:21 Respiratory Rate 20 09/26/18 19:21 Blood Pressure 154/86 09/26/18 19:21 O2 Sat by Pulse Oximetry (%) 97 09/26/18 09:00 GENERAL: The patient is lying in bed with no acute distress. HEAD: Normal with no signs of trauma. EYES: PERRL, extraocular movements intact, sclera anicteric, conjunctiva clear. ENT: Ears normal, oropharynx clear without exudates, dry mucous membranes. NECK: Trachea midline, full range of motion, supple. LUNGS: decreased Breath sounds at basis otherwise clear to auscultation. no accessory muscle use. HEART: mild tachy. S1, S2 without murmur, rub or gallop. ABDOMEN: Soft, Nt,ND, normoactive bowel sounds, no guarding, no rebound, no hepatosplenomegaly, no masses. EXTREMITIES: 2+ pulses, warm, well-perfused, no edema. NEUROLOGICAL: Cranial nerves II through XII grossly intact. gait not observed. PSYCH: Normal mood, normal affect. SKIN: Warm, dry, normal turgor, no rashes or lesions noted CBCD WBC 10.6 K/mm3 (4.0-10.0) H 09/26/18 06:15 RBC 3.77 M/mm3 (4.00-5.60) L 09/26/18 06:15 Hgb 11.6 GM/dL (11.7-16.9) L 09/26/18 06:15 Hct 34.6 % (35.4-49) L 09/26/18 06:15 MCV 91.7 fl (80-96) 09/26/18 06:15 MCHC 33.5 g/dl (32.0-35.9) 09/26/18 06:15 RDW 16.0 % (11.9-15.9) H 09/26/18 06:15 Plt Count 351 K/MM3 (134-434) 09/26/18 06:15 MPV 7.5 fl (7.5-11.1) 09/26/18 06:15 CMP Sodium 149 mmol/L (136-145) H 09/26/18 06:15 Potassium 3.5 mmol/L (3.5-5.1) 09/26/18 06:15 Chloride 113 mmol/L (98-107) H 09/26/18 06:15 Carbon Dioxide 29 mmol/L (21-32) 09/26/18 06:15 Anion Gap 7 MMOL/L (8-16) L 09/26/18 06:15 BUN 19 mg/dL (7-18) H 09/26/18 06:15 Creatinine 1.2 mg/dL (0.55-1.3) 09/26/18 06:15 Creat Clearance w eGFR 57.82 (>60) 09/26/18 06:15 Random Glucose 181 mg/dL (74-106) H 09/26/18 06:15 Calcium 9.4 mg/dL (8.5-10.1) 09/26/18 06:15 Total Bilirubin 1.8 mg/dL (0.2-1) H 09/26/18 06:15 AST 32 U/L (15-37) 09/26/18 06:15 ALT 55 U/L (13-61) 09/26/18 06:15 Alkaline Phosphatase 127 U/L (45-117) H 09/26/18 06:15 Total Protein 7.3 g/dl (6.4-8.2) 09/26/18 06:15 Albumin 3.1 g/dl (3.4-5.0) L 09/26/18 06:15 Current Medications Generic Name Dose Route Start Last Admin Trade Name Freq PRN Reason Stop Dose Admin Acetaminophen 1,000 mg 09/25/18 08:55 09/25/18 12:20 Ofirmev Injection - IVPB 1,000 mg Q6H PRN Administration FEVER Albuterol/Ipratropium 1 amp 09/19/18 07:18 09/20/18 21:30 Duoneb - NEB 1 amp Q6H PRN Administration SHORTNESS OF BREATH Albuterol/Ipratropium 1 amp 09/21/18 14:00 09/26/18 13:45 Duoneb - NEB Not Given RTID BLAIR Aspirin 81 mg 09/18/18 10:00 09/26/18 11:17 Asa - PO 81 mg DAILY BLAIR Administration Atorvastatin Calcium 5 mg 09/17/18 22:00 09/25/18 22:41 Lipitor - PO 5 mg HS BLAIR Administration Citalopram Hydrobromide 10 mg 09/18/18 10:00 09/26/18 11:16 Celexa - PO 10 mg DAILY BLAIR Administration Docusate Sodium 200 mg 09/17/18 22:00 09/25/18 22:42 Colace - PO 200 mg HS BLAIR Administration Heparin Sodium (Porcine) 5,000 unit 09/24/18 22:00 09/26/18 13:28 Heparin - SQ 5,000 unit TID BLAIR Administration Sodium Chloride 1,000 mls @ 50 mls/hr 09/26/18 11:00 09/26/18 11:14 1/2 Normal Saline IV 09/27/18 10:59 50 mls/hr ASDIR BLAIR Administration Insulin Aspart 1 vial 09/17/18 22:00 09/26/18 17:05 Novolog Vial Sliding Scale - SQ 4 units ACHS BLAIR Administration Protocol Metoprolol Tartrate 25 mg 09/19/18 10:00 09/26/18 11:16 Lopressor - PO 25 mg BID BLAIR Administration Nystatin 1 applic 09/18/18 10:00 09/26/18 11:17 Mycostatin Cream - TP 1 applic BID BLAIR Administration Nystatin 500,000 units 09/19/18 18:00 09/26/18 17:22 Nystatin Oral Suspension - PO 500,000 units Q6HPO BLAIR Administration Polyethylene Glycol 17 gm 09/18/18 10:00 09/26/18 11:19 Miralax (For Daily Use) - PO Not Given DAILY BLAIR Ramipril 10 mg 09/22/18 10:00 09/26/18 11:17 Altace - PO 10 mg DAILY BLAIR Administration Home Medications Medication Instructions Recorded Acetaminophen [Tylenol] 650 mg PO QID 09/17/18 Aspirin [ASA -] 81 mg PO DAILY 09/17/18 Atorvastatin Ca [Lipitor] 5 mg PO HS 09/17/18 Citalopram Hydrobromide [Celexa -] 10 mg PO DAILY 09/17/18 Docusate Sodium 200 mg PO HS 09/17/18 Magnesium Hydroxide [Milk of 400 mg PO DAILY 09/17/18 Magnesia] Metformin HCl [Glucophage] 500 mg PO DAILY 09/17/18 Metoprolol Tartrate 25 mg PO BID 09/17/18 Polyethylene Glycol 3350 [Miralax 17 gm PO DAILY 09/17/18 (For Daily Use) -] Ramipril 10 mg PO DAILY 09/17/18 ASSESSMENT AND PLAN: 82 y/o man with h/o advanced dementia, non-verbal, HTN, HLP, DM, UTIs, questionable MVR , who was sent form [facility] due to fever and hemtauria and was found to have sepsis due to UTI. # Sepsis due to complicated UTI, on Zosyn , as per discussion with ID . to discontinue IV antibiotic and monitor the vitals. . #Acute acute diastolic heart failure: resolved off IVF , lasix as needed. # Acute hypernatremia will encourage to increase oral fluid intake # Hematuria: due to infection . resolved now # Acute Transaminitis: resolved # urinary retention :leonard continue # HTN: cont BB and Rampiril # DM: hold metformin and cont SSI. DVT PX: SCDs
[2018-09-26] MEDS: ATORVASTATIN CA 10 MG TABLET (FP) PO SCH (22:50)
[2018-09-26] MEDS: DOCUSATE SODIUM 100 MG CAPSULE (FP) PO SCH (22:51)
[2018-09-27] MEDS: NYSTATIN 500,000 UNITS/5 ML SUSPENSION PO SCH ×5 (01:56→23:04)
[2018-09-27] MEDS: HEPARIN NA (PORCINE) 5,000 UNITS/ML 1ML VIAL SQ SCH ×3 (06:33→22:54)
[2018-09-27] MEDS: INSULIN SLIDING SCALE (NOVOLOG) 1 VIAL SQ SCH ×4 (06:34→22:54)
[2018-09-27] MEDS: ALBUTEROL SO4 2.5/IPRATROPIUM 0.5 INH SOL 3 ML VIAL.NEB. NEB SCH ×3 (07:25→20:28)
[2018-09-27] MEDS: SODIUM CHLORIDE 0.45% 1,000 ML IV SCH (07:48)
[2018-09-27 07:57] LABS: HEMATOCRIT 31.8 % (35.4-49); MCH 31.5 pg (25.7-33.7); MCHC 34.6 g/dl (32.0-35.9); MEAN PLT VOLUME 7.3 fl (7.5-11.1); PLATELET COUNT 316 K/MM3 (134-434); RBC 3.49 M/mm3 (4.00-5.60); RDW 15.5 % (11.9-15.9); WHITE BLOOD COUNT 6.7 K/mm3 (4.0-10.0)
--- NOTE | 2018-09-27 08:09 | PN ---
Physical Exam: SUBJECTIVE: Patient seen and examined at bedside- no acute events overnight patient did not spike fevers overnight OBJECTIVE: Vital Signs Period Temp Pulse Resp BP Sys/Lozano Pulse Ox Last 24 Hr 97.7 F-100 F 95-100 20-20 142-168/66-90 95-97 GENERAL: The patient is awake, alert, and fully oriented, in no acute distress. EYES: PEERLA; EOMI; no scleral icterus. NECK:no JVD; no lymphadenopathy LUNGS: CTA B/L; no rales, rhonchi or wheezing HEART: Regular rate and rhythm, S1, S2 without murmur, rub or gallop. ABDOMEN: soft; non-tender; non-distended +BS in all 4 quadrants EXTREMITIES: 2+ pulses, warm, well-perfused, no edema. PSYCH: Normal mood, normal affect. SKIN: Warm, dry, normal turgor, no rashes or lesions noted Laboratory Results - last 24 hr 09/26/18 09/26/18 09/26/18 06:15 06:15 06:15 WBC 10.6 H RBC 3.77 L Hgb 11.6 L Hct 34.6 L MCV 91.7 MCH 30.7 MCHC 33.5 RDW 16.0 H Plt Count 351 MPV 7.5 ESR Sodium 149 H Potassium 3.5 Chloride 113 H Carbon Dioxide 29 Anion Gap 7 L BUN 19 H Creatinine 1.2 Creat Clearance w eGFR 57.82 POC Glucometer Random Glucose 181 H Calcium 9.4 Phosphorus 3.3 Magnesium 2.1 Total Bilirubin 1.8 H AST 32 ALT 55 Alkaline Phosphatase 127 H C-Reactive Protein 7.2 H Cancelled Total Protein 7.3 Albumin 3.1 L 09/26/18 09/26/18 09/26/18 06:15 11:29 16:55 WBC RBC Hgb Hct MCV MCH MCHC RDW Plt Count MPV ESR 93 H Sodium Potassium Chloride Carbon Dioxide Anion Gap BUN Creatinine Creat Clearance w eGFR POC Glucometer 223 242 Random Glucose Calcium Phosphorus Magnesium Total Bilirubin AST ALT Alkaline Phosphatase C-Reactive Protein Total Protein Albumin 09/26/18 09/27/18 09/27/18 22:55 06:11 07:30 WBC 6.7 RBC 3.49 L Hgb 11.0 L Hct 31.8 L MCV 91.0 MCH 31.5 MCHC 34.6 RDW 15.5 Plt Count 316 MPV 7.3 L ESR Sodium Potassium Chloride Carbon Dioxide Anion Gap BUN Creatinine Creat Clearance w eGFR POC Glucometer 224 159 Random Glucose Calcium Phosphorus Magnesium Total Bilirubin AST ALT Alkaline Phosphatase C-Reactive Protein Total Protein Albumin Active Medications Generic Name Dose Route Start Last Admin Trade Name Freq PRN Reason Stop Dose Admin Acetaminophen 1,000 mg 09/25/18 08:55 09/25/18 12:20 Ofirmev Injection - IVPB 1,000 mg Q6H PRN Administration FEVER Albuterol/Ipratropium 1 amp 09/19/18 07:18 09/20/18 21:30 Duoneb - NEB 1 amp Q6H PRN Administration SHORTNESS OF BREATH Albuterol/Ipratropium 1 amp 09/21/18 14:00 09/26/18 20:42 Duoneb - NEB Not Given RTID BLAIR Aspirin 81 mg 09/18/18 10:00 09/26/18 11:17 Asa - PO 81 mg DAILY BLAIR Administration Atorvastatin Calcium 5 mg 09/17/18 22:00 09/26/18 22:50 Lipitor - PO 5 mg HS BLAIR Administration Citalopram Hydrobromide 10 mg 09/18/18 10:00 09/26/18 11:16 Celexa - PO 10 mg DAILY BLAIR Administration Docusate Sodium 200 mg 09/17/18 22:00 09/26/18 22:51 Colace - PO 200 mg HS BLAIR Administration Heparin Sodium (Porcine) 5,000 unit 09/24/18 22:00 09/27/18 06:33 Heparin - SQ 5,000 unit TID BLAIR Administration Sodium Chloride 1,000 mls @ 50 mls/hr 09/26/18 11:00 09/27/18 07:48 1/2 Normal Saline IV 09/27/18 10:59 50 mls/hr ASDIR BLAIR Administration Insulin Aspart 1 vial 09/17/18 22:00 09/27/18 06:34 Novolog Vial Sliding Scale - SQ 2 units ACHS BLAIR Administration Protocol Metoprolol Tartrate 25 mg 09/19/18 10:00 09/26/18 22:51 Lopressor - PO 25 mg BID BLAIR Administration Nystatin 1 applic 09/18/18 10:00 09/26/18 22:52 Mycostatin Cream - TP 1 applic BID BLAIR Administration Nystatin 500,000 units 09/19/18 18:00 03/15/19 06:33 Nystatin Oral Suspension - PO 500,000 units Q6HPO BLAIR Administration Polyethylene Glycol 17 gm 09/18/18 10:00 09/26/18 11:19 Miralax (For Daily Use) - PO Not Given DAILY BLAIR Ramipril 10 mg 09/22/18 10:00 09/26/18 11:17 Altace - PO 10 mg DAILY BLAIR Administration ASSESSMENT/PLAN: 82 y/o male with PMH of HTN, HLD, DM, dementia, aphasia previous UTI's was brought in from [facility] for urinary retention and found to be septic from a urinary tract infection with gross hematuria #Sepsis 2/2 UTI patient did not spike fevers overnight -d/c zosyn yesterday -IV tylenol PRN for fever -monitor vitals #Transaminitis LFTS , Tbilli and alk phos all normalized -AB U/S shows sludge with possible gallstones ; fatty liver v. hepatocellular disease #HTN -c/w ramipril 10 daily -c/w metoprolol tartrate 25 BID #DM holding oral diabetes medications -ISS -BGMS ACHS #HLD -c/w lipitor 5 HS Problem List - Problems (1) UTI (urinary tract infection) Code(s): N39.0 - URINARY TRACT INFECTION, SITE NOT SPECIFIED (2) HTN (hypertension) Code(s): I10 - ESSENTIAL (PRIMARY) HYPERTENSION (3) HLD (hyperlipidemia) Code(s): E78.5 - HYPERLIPIDEMIA, UNSPECIFIED (4) Diabetes Code(s): E11.9 - TYPE 2 DIABETES MELLITUS WITHOUT COMPLICATIONS Visit type - Emergency Visit Emergency Visit: Yes ED Registration Date: 09/17/18 Care time: The patient presented to the Emergency Department on the above date and was hospitalized for further evaluation of their emergent condition. - New Patient This patient is new to me today: No - Critical Care Critical Care patient: No
[2018-09-27 08:27] LABS: ALBUMIN 2.7 g/dl (3.4-5.0); ALK PHOS 100 U/L (45-117); ANION GAP 6 MMOL/L (8-16); BILIRUBIN,TOTAL 0.8 mg/dL (0.2-1); BLOOD UREA NITROGEN 22 mg/dL (7-18); CALCIUM 8.9 mg/dL (8.5-10.1); CHLORIDE 114 mmol/L (98-107); CO2 29 mmol/L (21-32); GLUCOSE,RANDOM 164 mg/dL (74-106); PHOSPHOROUS 3.1 mg/dL (2.5-4.9); SGOT/AST 18 U/L (15-37); SGPT/ALT 43 U/L (13-61); SODIUM 148 mmol/L (136-145); TOT PROT 6.3 g/dl (6.4-8.2)
[2018-09-27] MEDS ORDERED: PT OWN MED DRAWER 7, Y5N ONE ×2 (09:06→22:18)
[2018-09-27] MEDS ORDERED: POTASSIUM CHLORIDE TABS 20 MEQ TABLET.ER (FP) PO ONE (09:30)
[2018-09-27] MEDS: RAMIPRIL 5 MG CAPSULE (FP) PO SCH (09:47)
[2018-09-27] MEDS: ASPIRIN 81 MG CHEWABLE TABLETS PO SCH (09:47)
[2018-09-27] MEDS: CITALOPRAM HYDROBROMIDE 10 MG TABLET (FP) PO SCH (09:47)
[2018-09-27] MEDS: METOPROLOL TARTRATE 25 MG TABLET (FP) PO SCH ×2 (09:47→22:54)
[2018-09-27] MEDS: POLYETHYLENE GLYCOL 3350 119 GM BTL PO SCH (09:47)
[2018-09-27] MEDS: NYSTATIN 100,000 UNIT/GM TOPICAL CREAM 15 GM TUBE TP SCH ×2 (09:47→22:54)
[2018-09-27] MEDS ORDERED: INSULIN (NOVOLOG) ASPART 100 UNITS/ML 10ML VIAL ONE (11:19)
[2018-09-27] MEDS ORDERED: ACETAMINOPHEN 325 MG TABLET (FP) PO PRN (14:39)
--- NOTE | 2018-09-27 18:22 | PN ---
Progress Note (short form) - Note Progress Note: afebrile nad Vital Signs Period Temp Pulse Resp BP Sys/Lozano Pulse Ox Last 24 Hr 97.7 F-100 F 95-99 20-20 125-168/55-90 92-95 cor-rrr lungs decreased bs at bases abd soft,nt ext no edema CBC, BMP 09/27/18 07:30 09/27/18 07:30 Microbiology 09/24/18 08:20 Blood - Arterial Blood Culture - Preliminary NO GROWTH OBTAINED AFTER 72 HOURS, INCUBATION TO CONTINUE FOR 2 DAYS. 09/24/18 08:10 Blood - Arterial Blood Culture - Preliminary NO GROWTH OBTAINED AFTER 72 HOURS, INCUBATION TO CONTINUE FOR 2 DAYS. 09/19/18 11:38 Blood - Peripheral Venous Blood Culture - Final NO GROWTH AFTER 5 DAYS INCUBATION 09/19/18 11:20 Blood - Peripheral Venous Blood Culture - Final NO GROWTH AFTER 5 DAYS INCUBATION 09/17/18 15:00 Blood - Peripheral Venous Blood Culture - Final NO GROWTH AFTER 5 DAYS INCUBATION 09/17/18 15:00 Blood - Peripheral Venous Blood Culture - Final NO GROWTH AFTER 5 DAYS INCUBATION 09/17/18 23:00 Urine - Urine - Catheterized Urine Culture - Final NO GROWTH OBTAINED leonard in place imp/reccd low grade fevers- ?aspiration repeat cxray unchanged- would consider chest ct to r/o pneumonia remains afebrile off antiibotics please call back if needed Problem List - Problems (1) Fever Code(s): R50.9 - FEVER, UNSPECIFIED (2) UTI (urinary tract infection) Code(s): N39.0 - URINARY TRACT INFECTION, SITE NOT SPECIFIED (3) Urinary retention Code(s): R33.9 - RETENTION OF URINE, UNSPECIFIED
--- NOTE | 2018-09-27 19:13 | PN ---
Teaching Attending Note Name of Resident: Patricia Torres ATTENDING PHYSICIAN STATEMENT I saw and evaluated the patient. I reviewed the resident's note and discussed the case with the resident. I agree with the resident's findings and plan as documented. SUBJECTIVE: Patient is afebrile, no new complains. OBJECTIVE: Vital Signs Temperature 97.7 F 09/27/18 18:00 Pulse Rate 106 H 09/27/18 18:00 Respiratory Rate 20 09/27/18 18:00 Blood Pressure 142/91 09/27/18 18:00 O2 Sat by Pulse Oximetry (%) 92 L 09/27/18 09:00 GENERAL: The patient is lying in bed with no acute distress. HEAD: Normal with no signs of trauma. EYES: PERRL, extraocular movements intact, sclera anicteric, conjunctiva clear. ENT: Ears normal, oropharynx clear without exudates, dry mucous membranes. NECK: Trachea midline, full range of motion, supple. LUNGS: decreased Breath sounds at basis otherwise clear to auscultation. no accessory muscle use. HEART: mild tachy. S1, S2 without murmur, rub or gallop. ABDOMEN: Soft, Nt,ND, normoactive bowel sounds, no guarding, no rebound, no hepatosplenomegaly, no masses. EXTREMITIES: 2+ pulses, warm, well-perfused, no edema. NEUROLOGICAL: Cranial nerves II through XII grossly intact. gait not observed. PSYCH: Normal mood, normal affect. SKIN: Warm, dry, normal turgor, no rashes or lesions noted CBCD WBC 6.7 K/mm3 (4.0-10.0) 09/27/18 07:30 RBC 3.49 M/mm3 (4.00-5.60) L 09/27/18 07:30 Hgb 11.0 GM/dL (11.7-16.9) L 09/27/18 07:30 Hct 31.8 % (35.4-49) L 09/27/18 07:30 MCV 91.0 fl (80-96) 09/27/18 07:30 MCHC 34.6 g/dl (32.0-35.9) 09/27/18 07:30 RDW 15.5 % (11.9-15.9) 09/27/18 07:30 Plt Count 316 K/MM3 (134-434) 09/27/18 07:30 MPV 7.3 fl (7.5-11.1) L 09/27/18 07:30 CMP Sodium 148 mmol/L (136-145) H 09/27/18 07:30 Potassium 3.0 mmol/L (3.5-5.1) L 09/27/18 07:30 Chloride 114 mmol/L (98-107) H 09/27/18 07:30 Carbon Dioxide 29 mmol/L (21-32) 09/27/18 07:30 Anion Gap 6 MMOL/L (8-16) L 09/27/18 07:30 BUN 22 mg/dL (7-18) H 09/27/18 07:30 Creatinine 1.0 mg/dL (0.55-1.3) 09/27/18 07:30 Creat Clearance w eGFR 71.36 (>60) 09/27/18 07:30 Random Glucose 164 mg/dL (74-106) H 09/27/18 07:30 Calcium 8.9 mg/dL (8.5-10.1) 09/27/18 07:30 Total Bilirubin 0.8 mg/dL (0.2-1) 09/27/18 07:30 AST 18 U/L (15-37) 09/27/18 07:30 ALT 43 U/L (13-61) 09/27/18 07:30 Alkaline Phosphatase 100 U/L (45-117) 09/27/18 07:30 Total Protein 6.3 g/dl (6.4-8.2) L 09/27/18 07:30 Albumin 2.7 g/dl (3.4-5.0) L 09/27/18 07:30 Current Medications Generic Name Dose Route Start Last Admin Trade Name Freq PRN Reason Stop Dose Admin Acetaminophen 650 mg 09/27/18 14:39 Tylenol - PO Q6H PRN Fever Or Pain Albuterol/Ipratropium 1 amp 09/19/18 07:18 09/20/18 21:30 Duoneb - NEB 1 amp Q6H PRN Administration SHORTNESS OF BREATH Albuterol/Ipratropium 1 amp 09/21/18 14:00 09/27/18 15:10 Duoneb - NEB 1 amp RTID BLAIR Administration Aspirin 81 mg 09/18/18 10:00 09/27/18 09:47 Asa - PO 81 mg DAILY BLAIR Administration Atorvastatin Calcium 5 mg 09/17/18 22:00 09/26/18 22:50 Lipitor - PO 5 mg HS BLAIR Administration Citalopram Hydrobromide 10 mg 09/18/18 10:00 09/27/18 09:47 Celexa - PO 10 mg DAILY BLAIR Administration Docusate Sodium 200 mg 09/17/18 22:00 09/26/18 22:51 Colace - PO 200 mg HS BLAIR Administration Heparin Sodium (Porcine) 5,000 unit 09/24/18 22:00 09/27/18 13:42 Heparin - SQ 5,000 unit TID BLAIR Administration Insulin Aspart 1 vial 09/17/18 22:00 09/27/18 17:18 Novolog Vial Sliding Scale - SQ 6 units ACHS BLAIR Administration Protocol Metoprolol Tartrate 25 mg 09/19/18 10:00 09/27/18 09:47 Lopressor - PO 25 mg BID BLAIR Administration Nystatin 1 applic 09/18/18 10:00 09/27/18 09:47 Mycostatin Cream - TP 1 applic BID BLAIR Administration Nystatin 500,000 units 09/19/18 18:00 09/27/18 17:49 Nystatin Oral Suspension - PO 500,000 units Q6HPO BLAIR Administration Polyethylene Glycol 17 gm 09/18/18 10:00 09/27/18 09:47 Miralax (For Daily Use) - PO 17 grams DAILY BLAIR Administration Ramipril 10 mg 09/22/18 10:00 09/27/18 09:47 Altace - PO 10 mg DAILY BLAIR Administration Home Medications Medication Instructions Recorded Acetaminophen [Tylenol] 650 mg PO QID 09/17/18 Aspirin [ASA -] 81 mg PO DAILY 09/17/18 Atorvastatin Ca [Lipitor] 5 mg PO HS 09/17/18 Citalopram Hydrobromide [Celexa -] 10 mg PO DAILY 09/17/18 Docusate Sodium 200 mg PO HS 09/17/18 Magnesium Hydroxide [Milk of 400 mg PO DAILY 09/17/18 Magnesia] Metformin HCl [Glucophage] 500 mg PO DAILY 09/17/18 Metoprolol Tartrate 25 mg PO BID 09/17/18 Polyethylene Glycol 3350 [Miralax 17 gm PO DAILY 09/17/18 (For Daily Use) -] Ramipril 10 mg PO DAILY 09/17/18 ASSESSMENT AND PLAN: 82 y/o man with h/o advanced dementia, non-verbal, HTN, HLP, DM, UTIs, questionable MVR , who was sent form [facility] due to fever and hemtauria and was found to have sepsis due to UTI. # s/p sepsis due to complicated UTI, off Zosyn now , as per discussion with ID . #Acute acute diastolic heart failure: resolved off IVF , lasix as needed. # Hematuria: due to infection . resolved now # Acute hypernatremia: will monitor on oral fluid to encourage # Acute Transaminitis: resolved. # urinary retention :leonard # HTN: cont BB and Rampiril # DM: hold metformin and cont SSI. DVT PX: SCDs
[2018-09-27] MEDS: DOCUSATE SODIUM 100 MG CAPSULE (FP) PO SCH (22:54)
[2018-09-27] MEDS: ATORVASTATIN CA 10 MG TABLET (FP) PO SCH (22:54)
[2018-09-28] MEDS: INSULIN SLIDING SCALE (NOVOLOG) 1 VIAL SQ SCH ×4 (06:49→23:34)
[2018-09-28] MEDS: HEPARIN NA (PORCINE) 5,000 UNITS/ML 1ML VIAL SQ SCH ×3 (06:49→22:38)
[2018-09-28] MEDS: NYSTATIN 500,000 UNITS/5 ML SUSPENSION PO SCH ×4 (06:49→23:35)
[2018-09-28] MEDS: ALBUTEROL SO4 2.5/IPRATROPIUM 0.5 INH SOL 3 ML VIAL.NEB. NEB SCH ×3 (07:35→20:10)
[2018-09-28 09:03] LABS: HEMOGLOBIN 11.4 GM/dL (11.7-16.9); MCH 30.7 pg (25.7-33.7); MCHC 33.6 g/dl (32.0-35.9); MEAN CELL VOLUME 91.6 fl (80-96); MEAN PLT VOLUME 7.5 fl (7.5-11.1); PLATELET COUNT 348 K/MM3 (134-434); RBC 3.71 M/mm3 (4.00-5.60); RDW 15.7 % (11.9-15.9); WHITE BLOOD COUNT 9.1 K/mm3 (4.0-10.0)
[2018-09-28 09:39] LABS: ALBUMIN 3.1 g/dl (3.4-5.0); ALK PHOS 118 U/L (45-117); ANION GAP 6 MMOL/L (8-16); BILIRUBIN,TOTAL 0.7 mg/dL (0.2-1); BLOOD UREA NITROGEN 15 mg/dL (7-18); CALCIUM 9.5 mg/dL (8.5-10.1); CHLORIDE 114 mmol/L (98-107); CO2 30 mmol/L (21-32); CREATININE 1.1 mg/dL (0.55-1.3); GLUCOSE,RANDOM 182 mg/dL (74-106); PHOSPHOROUS 2.9 mg/dL (2.5-4.9); POTASSIUM 3.9 mmol/L (3.5-5.1); SGOT/AST 21 U/L (15-37); SGPT/ALT 43 U/L (13-61); SODIUM 150 mmol/L (136-145)
[2018-09-28] MEDS: RAMIPRIL 5 MG CAPSULE (FP) PO SCH (10:21)
[2018-09-28] MEDS: METOPROLOL TARTRATE 25 MG TABLET (FP) PO SCH ×2 (10:21→22:40)
[2018-09-28] MEDS: CITALOPRAM HYDROBROMIDE 10 MG TABLET (FP) PO SCH (10:21)
[2018-09-28] MEDS: POLYETHYLENE GLYCOL 3350 119 GM BTL PO SCH (10:22)
[2018-09-28] MEDS: ASPIRIN 81 MG CHEWABLE TABLETS PO SCH (10:22)
[2018-09-28] MEDS: NYSTATIN 100,000 UNIT/GM TOPICAL CREAM 15 GM TUBE TP SCH ×2 (10:22→22:40)
--- NOTE | 2018-09-28 13:50 | DS ---
Physical Exam: SUBJECTIVE: Patient seen and examined OBJECTIVE: Vital Signs Temperature 98.4 F 09/28/18 06:00 Pulse Rate 98 H 09/28/18 06:00 Respiratory Rate 20 09/28/18 06:00 Blood Pressure 164/88 09/28/18 06:00 O2 Sat by Pulse Oximetry (%) 94 L 09/27/18 21:00 Initial Vital Signs Pulse Pulse Ox 110 H 98 09/17/18 14:21 09/17/18 14:21 Vital Signs (72 hours) 09/25/18 09/25/18 09/25/18 15:22 17:49 18:46 Temperature 99.1 F 99.5 F 99.0 F Pulse Rate 91 H 90 Respiratory 20 20 Rate Blood Pressure 145/75 157/80 O2 Sat by Pulse Oximetry (%) 09/25/18 09/25/18 09/26/18 21:00 22:00 05:59 Temperature 99.7 F H 99.3 F Pulse Rate 93 H 117 H Respiratory 20 20 Rate Blood Pressure 152/79 154/73 O2 Sat by Pulse 96 Oximetry (%) 09/26/18 09/26/18 09/26/18 09:00 10:00 14:25 Temperature 100 F H 99.7 F H Pulse Rate 100 H 98 H Respiratory 20 20 20 Rate Blood Pressure 162/87 157/66 O2 Sat by Pulse 97 Oximetry (%) 09/26/18 09/26/18 09/26/18 19:21 21:00 22:00 Temperature 100 F H 99.2 F Pulse Rate 99 H 95 H Respiratory 20 20 20 Rate Blood Pressure 154/86 168/79 O2 Sat by Pulse 95 Oximetry (%) 09/27/18 09/27/18 09/27/18 01:18 05:43 09:00 Temperature 99.2 F 97.7 F Pulse Rate Respiratory 20 20 Rate Blood Pressure 157/90 142/75 O2 Sat by Pulse 92 L Oximetry (%) 09/27/18 09/27/18 09/27/18 10:00 14:16 18:00 Temperature 98.2 F 97.7 F 97.7 F Pulse Rate 95 H 106 H Respiratory 20 20 20 Rate Blood Pressure 125/55 L 142/91 O2 Sat by Pulse Oximetry (%) 09/27/18 09/27/18 09/28/18 21:00 22:00 06:00 Temperature 98.6 F 98.4 F Pulse Rate 99 H 98 H Respiratory 20 20 Rate Blood Pressure 140/77 164/88 O2 Sat by Pulse 94 L Oximetry (%) PHYSICAL EXAM GENERAL: The patient is awake, alert, and fully oriented, in no acute distress. HEAD: Normal with no signs of trauma. EYES: PERRL, extraocular movements intact, sclera anicteric, conjunctiva clear. ENT: Ears normal, nares patent, oropharynx clear without exudates, moist mucous membranes. NECK: Trachea midline, full range of motion, supple. LUNGS: Breath sounds equal, clear to auscultation bilaterally, no wheezes, no crackles, no accessory muscle use. HEART: Regular rate and rhythm, S1, S2 without murmur, rub or gallop. ABDOMEN: Soft, nontender, nondistended, normoactive bowel sounds, no guarding, no rebound, no hepatosplenomegaly, no masses. EXTREMITIES: 2+ pulses, warm, well-perfused, no edema. NEUROLOGICAL: Cranial nerves II through XII grossly intact. Normal speech, gait not observed. PSYCH: Normal mood, normal affect. SKIN: Warm, dry, normal turgor, no rashes or lesions noted. LABS CBCD WBC 9.1 K/mm3 (4.0-10.0) 09/28/18 08:50 RBC 3.71 M/mm3 (4.00-5.60) L 09/28/18 08:50 Hgb 11.4 GM/dL (11.7-16.9) L 09/28/18 08:50 Hct 34.0 % (35.4-49) L 09/28/18 08:50 MCV 91.6 fl (80-96) 09/28/18 08:50 MCHC 33.6 g/dl (32.0-35.9) 09/28/18 08:50 RDW 15.7 % (11.9-15.9) 09/28/18 08:50 Plt Count 348 K/MM3 (134-434) 09/28/18 08:50 MPV 7.5 fl (7.5-11.1) 09/28/18 08:50 CMP Sodium 150 mmol/L (136-145) H 09/28/18 08:50 Potassium 3.9 mmol/L (3.5-5.1) 09/28/18 08:50 Chloride 114 mmol/L (98-107) H 09/28/18 08:50 Carbon Dioxide 30 mmol/L (21-32) 09/28/18 08:50 Anion Gap 6 MMOL/L (8-16) L 09/28/18 08:50 BUN 15 mg/dL (7-18) 09/28/18 08:50 Creatinine 1.1 mg/dL (0.55-1.3) 09/28/18 08:50 Creat Clearance w eGFR 63.93 (>60) 09/28/18 08:50 Random Glucose 182 mg/dL (74-106) H 09/28/18 08:50 Calcium 9.5 mg/dL (8.5-10.1) 09/28/18 08:50 Total Bilirubin 0.7 mg/dL (0.2-1) 09/28/18 08:50 AST 21 U/L (15-37) 09/28/18 08:50 ALT 43 U/L (13-61) 09/28/18 08:50 Alkaline Phosphatase 118 U/L (45-117) H 09/28/18 08:50 Total Protein 7.0 g/dl (6.4-8.2) 09/28/18 08:50 Albumin 3.1 g/dl (3.4-5.0) L 09/28/18 08:50 HOSPITAL COURSE: Date of Admission:09/17/18 Date of Discharge: 09/28/18 82 y/o man with h/o advanced dementia, non-verbal, HTN, HLP, DM, UTIs, questionable MVR , who was sent form [facility] due to fever and hemtauria and was found to have sepsis due to UTI. # Sepsis due to complicated UTI, on Zosyn , as per discussion with ID . to discontinue IV antibiotic and monitor the vitals. . #Acute acute diastolic heart failure: resolved off IVF , lasix as needed. # Hematuria: due to infection . resolved now # Acute Transaminitis: elvira trend , since patient keeps having fever will need MRCP, but patient is unable to lie flat in MRCP # urinary retention :leonard # HTN: cont BB and Rampiril # DM: hold metformin and cont SSI. DVT PX: SCDs Discharge Summary Reason For Visit: SEPSIS DUE TO UTI/HEMATURIA Current Active Problems Diabetes (Acute) Fever (Acute) HLD (hyperlipidemia) (Acute) HTN (hypertension) (Acute) Hematuria (Acute) UTI (urinary tract infection) (Acute) Urinary retention (Acute) - Instructions Referrals: Lisa Fierro [Primary Care Provider] - - Home Medications Comprehensive Discharge Medication List: Ambulatory Orders Acetaminophen [Tylenol] 650 mg PO QID 09/17/18 Aspirin [ASA -] 81 mg PO DAILY 09/17/18 Atorvastatin Ca [Lipitor] 5 mg PO HS 09/17/18 Citalopram Hydrobromide [Celexa -] 10 mg PO DAILY 09/17/18 Docusate Sodium 200 mg PO HS 09/17/18 Magnesium Hydroxide [Milk of Magnesia] 400 mg PO DAILY 09/17/18 Metformin HCl [Glucophage] 500 mg PO DAILY 09/17/18 Metoprolol Tartrate 25 mg PO BID 09/17/18 Polyethylene Glycol 3350 [Miralax (For Daily Use) -] 17 gm PO DAILY 09/17/18 Ramipril 10 mg PO DAILY 09/17/18
--- NOTE | 2018-09-28 13:58 | PN ---
Progress Note (short form) - Note Progress Note: Patient is feeling better with no acute distress. no further fever or chills. Vital Signs Temperature 98.4 F 09/28/18 06:00 Pulse Rate 98 H 09/28/18 06:00 Respiratory Rate 20 09/28/18 06:00 Blood Pressure 164/88 09/28/18 06:00 O2 Sat by Pulse Oximetry (%) 94 L 09/27/18 21:00 GENERAL: The patient is lying in bed with no acute distress. HEAD: Normal with no signs of trauma. EYES: PERRL, extraocular movements intact, sclera anicteric, conjunctiva clear. ENT: Ears normal, oropharynx clear without exudates, dry mucous membranes. NECK: Trachea midline, full range of motion, supple. LUNGS: decreased Breath sounds at basis otherwise clear to auscultation. no accessory muscle use. HEART: mild tachy. S1, S2 without murmur, rub or gallop. ABDOMEN: Soft, Nt,ND, normoactive bowel sounds, no guarding, no rebound, no hepatosplenomegaly, no masses. EXTREMITIES: 2+ pulses, warm, well-perfused, no edema. NEUROLOGICAL: Cranial nerves II through XII grossly intact. gait not observed. PSYCH: Normal mood, normal affect. SKIN: Warm, dry, normal turgor, no rashes or lesions noted CBCD WBC 9.1 K/mm3 (4.0-10.0) 09/28/18 08:50 RBC 3.71 M/mm3 (4.00-5.60) L 09/28/18 08:50 Hgb 11.4 GM/dL (11.7-16.9) L 09/28/18 08:50 Hct 34.0 % (35.4-49) L 09/28/18 08:50 MCV 91.6 fl (80-96) 09/28/18 08:50 MCHC 33.6 g/dl (32.0-35.9) 09/28/18 08:50 RDW 15.7 % (11.9-15.9) 09/28/18 08:50 Plt Count 348 K/MM3 (134-434) 09/28/18 08:50 MPV 7.5 fl (7.5-11.1) 09/28/18 08:50 CMP Sodium 150 mmol/L (136-145) H 09/28/18 08:50 Potassium 3.9 mmol/L (3.5-5.1) 09/28/18 08:50 Chloride 114 mmol/L (98-107) H 09/28/18 08:50 Carbon Dioxide 30 mmol/L (21-32) 09/28/18 08:50 Anion Gap 6 MMOL/L (8-16) L 09/28/18 08:50 BUN 15 mg/dL (7-18) 09/28/18 08:50 Creatinine 1.1 mg/dL (0.55-1.3) 09/28/18 08:50 Creat Clearance w eGFR 63.93 (>60) 09/28/18 08:50 Random Glucose 182 mg/dL (74-106) H 09/28/18 08:50 Calcium 9.5 mg/dL (8.5-10.1) 09/28/18 08:50 Total Bilirubin 0.7 mg/dL (0.2-1) 09/28/18 08:50 AST 21 U/L (15-37) 09/28/18 08:50 ALT 43 U/L (13-61) 09/28/18 08:50 Alkaline Phosphatase 118 U/L (45-117) H 09/28/18 08:50 Total Protein 7.0 g/dl (6.4-8.2) 09/28/18 08:50 Albumin 3.1 g/dl (3.4-5.0) L 09/28/18 08:50 Current Medications Generic Name Dose Route Start Last Admin Trade Name Vanq PRN Reason Stop Dose Admin Acetaminophen 650 mg 09/27/18 14:39 Tylenol - PO Q6H PRN Fever Or Pain Albuterol/Ipratropium 1 amp 09/19/18 07:18 09/20/18 21:30 Duoneb - NEB 1 amp Q6H PRN Administration SHORTNESS OF BREATH Albuterol/Ipratropium 1 amp 09/21/18 14:00 09/28/18 07:35 Duoneb - NEB 1 amp RTID BLAIR Administration Aspirin 81 mg 09/18/18 10:00 09/28/18 10:22 Asa - PO 81 mg DAILY BLAIR Administration Atorvastatin Calcium 5 mg 09/17/18 22:00 09/27/18 22:54 Lipitor - PO 5 mg HS BLAIR Administration Citalopram Hydrobromide 10 mg 09/18/18 10:00 09/28/18 10:21 Celexa - PO 10 mg DAILY BLAIR Administration Docusate Sodium 200 mg 09/17/18 22:00 09/27/18 22:54 Colace - PO 200 mg HS BLAIR Administration Heparin Sodium (Porcine) 5,000 unit 09/24/18 22:00 09/28/18 06:49 Heparin - SQ 5,000 unit TID BLAIR Administration Insulin Aspart 1 vial 09/17/18 22:00 09/28/18 11:12 Novolog Vial Sliding Scale - SQ 4 units ACHS BLAIR Administration Protocol Metoprolol Tartrate 25 mg 09/19/18 10:00 09/28/18 10:21 Lopressor - PO 25 mg BID BLAIR Administration Nystatin 1 applic 09/18/18 10:00 09/28/18 10:22 Mycostatin Cream - TP 1 applic BID BLAIR Administration Nystatin 500,000 units 09/19/18 18:00 09/28/18 06:49 Nystatin Oral Suspension - PO 500,000 units Q6HPO BLAIR Administration Polyethylene Glycol 17 gm 09/18/18 10:00 09/28/18 10:22 Miralax (For Daily Use) - PO Not Given DAILY [facility] Ramipril 10 mg 09/22/18 10:00 09/28/18 10:21 Altace - PO 10 mg DAILY BLAIR Administration Home Medications Medication Instructions Recorded Acetaminophen [Tylenol] 650 mg PO QID 09/17/18 Aspirin [ASA -] 81 mg PO DAILY 09/17/18 Atorvastatin Ca [Lipitor] 5 mg PO HS 09/17/18 Citalopram Hydrobromide [Celexa -] 10 mg PO DAILY 09/17/18 Docusate Sodium 200 mg PO HS 09/17/18 Magnesium Hydroxide [Milk of 400 mg PO DAILY 09/17/18 Magnesia] Metformin HCl [Glucophage] 500 mg PO DAILY 09/17/18 Metoprolol Tartrate 25 mg PO BID 09/17/18 Polyethylene Glycol 3350 [Miralax 17 gm PO DAILY 09/17/18 (For Daily Use) -] Ramipril 10 mg PO DAILY 09/17/18 Assessment /Plan: 82 y/o man with h/o advanced dementia, non-verbal, HTN, HLP, DM, UTIs, questionable MVR , who was sent form [facility] due to fever and hemtauria and was found to have sepsis due to UTI. # Acute Hypernatremia : will increase IVF to 100cc/hr # Acute dehydration : IVF increased to 100cc/hr x 1 liter, encourage oral fluid intake # HTN Uncontrolled:will increase BB to 50mg po bid and continue Rampiril 10mg will monitor. # s/p sepsis due to complicated UTI, no further fever IV Zosyn discontinued. will continue to monitor the vitals. #Acute diastolic heart failure: lasix as needed. # Hematuria: due to infection . resolved now # Acute Transaminitis: improved # urinary retention : leonard # DM: on metformin will restart in am , continue SSI. DVT PX: SCDs Visit type - Emergency Visit Emergency Visit: Yes ED Registration Date: 09/17/18 Care time: The patient presented to the Emergency Department on the above date and was hospitalized for further evaluation of their emergent condition. - New Patient This patient is new to me today: No - Critical Care Critical Care patient: No - Discharge Referral Referred to [facility] No
[2018-09-28] MEDS ORDERED: SODIUM CHLORIDE 0.45% 1,000 ML IV SCH (14:30)
[2018-09-28] MEDS: ATORVASTATIN CA 10 MG TABLET (FP) PO SCH (22:39)
[2018-09-28] MEDS: DOCUSATE SODIUM 100 MG CAPSULE (FP) PO SCH (22:39)
[2018-09-29] MEDS: NYSTATIN 500,000 UNITS/5 ML SUSPENSION PO SCH ×2 (06:02→17:03)
[2018-09-29] MEDS: HEPARIN NA (PORCINE) 5,000 UNITS/ML 1ML VIAL SQ SCH ×3 (06:02→21:51)
[2018-09-29] MEDS: INSULIN SLIDING SCALE (NOVOLOG) 1 VIAL SQ SCH ×4 (06:45→21:49)
[2018-09-29] MEDS: ALBUTEROL SO4 2.5/IPRATROPIUM 0.5 INH SOL 3 ML VIAL.NEB. NEB SCH ×3 (07:40→19:55)
[2018-09-29] MEDS: ASPIRIN 81 MG CHEWABLE TABLETS PO SCH (10:15)
[2018-09-29] MEDS: RAMIPRIL 5 MG CAPSULE (FP) PO SCH (10:15)
[2018-09-29] MEDS: POLYETHYLENE GLYCOL 3350 119 GM BTL PO SCH (10:16)
[2018-09-29] MEDS: METOPROLOL TARTRATE 25 MG TABLET (FP) PO SCH ×2 (10:16→21:52)
[2018-09-29] MEDS: CITALOPRAM HYDROBROMIDE 10 MG TABLET (FP) PO SCH (10:16)
[2018-09-29] MEDS: NYSTATIN 100,000 UNIT/GM TOPICAL CREAM 15 GM TUBE TP SCH ×2 (10:16→21:50)
[2018-09-29] MEDS ORDERED: PT OWN MED DRAWER 7, Y5N ONE (10:19)
[2018-09-29] MEDS ORDERED: INSULIN (NOVOLOG) ASPART 100 UNITS/ML 10ML VIAL ONE (10:54)
--- NOTE | 2018-09-29 12:06 | PN ---
Physical Exam: SUBJECTIVE: Patient seen and examined at bedside- no acute events overnight' patient did not spike any fevers OBJECTIVE: Vital Signs Period Temp Pulse Resp BP Sys/Lozano Pulse Ox Last 24 Hr 98.5 F-98.6 F 78-109 20-20 146-161/70-85 94 GENERAL: The patient is awake, alert, and fully oriented, in no acute distress. EYES:PEERLA EOMI no scleral icterus NECK:no JVD; no lymphadenopathy LUNGS: CTA B/L; no rales, rhonchi or wheezing HEART: Regular rate and rhythm, S1, S2 without murmur, rub or gallop. ABDOMEN: Soft, nontender, nondistended, normoactive bowel sounds, no guarding, no rebound, no hepatosplenomegaly, no masses. EXTREMITIES: 2+ pulses, warm, well-perfused, no edema. PSYCH: Normal mood, normal affect. SKIN: Warm, dry, normal turgor, no rashes or lesions noted Laboratory Results - last 24 hr 09/27/18 09/28/18 09/28/18 11:15 16:01 23:33 POC Glucometer 254 284 173 09/29/18 09/29/18 06:04 11:15 POC Glucometer 174 209 Active Medications Generic Name Dose Route Start Last Admin Trade Name Freq PRN Reason Stop Dose Admin Acetaminophen 650 mg 09/27/18 14:39 Tylenol - PO Q6H PRN Fever Or Pain Albuterol/Ipratropium 1 amp 09/19/18 07:18 09/20/18 21:30 Duoneb - NEB 1 amp Q6H PRN Administration SHORTNESS OF BREATH Albuterol/Ipratropium 1 amp 09/21/18 14:00 09/29/18 07:40 Duoneb - NEB 1 amp RTID BLAIR Administration Aspirin 81 mg 09/18/18 10:00 09/29/18 10:15 Asa - PO 81 mg DAILY BLAIR Administration Atorvastatin Calcium 5 mg 09/17/18 22:00 09/28/18 22:39 Lipitor - PO 5 mg HS BLAIR Administration Citalopram Hydrobromide 10 mg 09/18/18 10:00 09/29/18 10:16 Celexa - PO 10 mg DAILY BLAIR Administration Docusate Sodium 200 mg 09/17/18 22:00 09/28/18 22:39 Colace - PO 200 mg HS BLAIR Administration Heparin Sodium (Porcine) 5,000 unit 09/24/18 22:00 09/29/18 06:02 Heparin - SQ 5,000 unit TID BLAIR Administration Insulin Aspart 1 vial 09/17/18 22:00 09/29/18 11:15 Novolog Vial Sliding Scale - SQ 4 units ACHS BLAIR Administration Protocol Metoprolol Tartrate 50 mg 09/28/18 14:25 09/29/18 10:16 Lopressor - PO 50 mg BID BLAIR Administration Nystatin 1 applic 09/18/18 10:00 09/29/18 10:16 Mycostatin Cream - TP 1 applic BID BLAIR Administration Nystatin 500,000 units 09/19/18 18:00 09/29/18 06:02 Nystatin Oral Suspension - PO 500,000 units Q6HPO BLAIR Administration Polyethylene Glycol 17 gm 09/18/18 10:00 09/29/18 10:16 Miralax (For Daily Use) - PO Not Given DAILY BLAIR Ramipril 10 mg 09/22/18 10:00 09/29/18 10:15 Altace - PO 10 mg DAILY BLAIR Administration ASSESSMENT/PLAN: 82 y/o male with PMH of HTN, HLD, DM, dementia, aphasia previous UTI's was brought in from [facility] for urinary retention and found to be septic from a urinary tract infection with gross hematuria #Sepsis 2/2 UTI patient did not spike fevers overnight -no longer on abx -IV tylenol PRN for fever -monitor vitals #Hypernatremia sodium downtrending to 147 from 150 NS @50cc X1 bag #Transaminitis LFTS , Tbilli and alk phos all normalized -AB U/S shows sludge with possible gallstones ; fatty liver v. hepatocellular disease #HTN -c/w ramipril 10 daily -c/w metoprolol tartrate 25 BID #DM holding oral diabetes medications -ISS -BGMS ACHS #HLD -c/w lipitor 5 HS Problem List - Problems (1) UTI (urinary tract infection) Code(s): N39.0 - URINARY TRACT INFECTION, SITE NOT SPECIFIED (2) HTN (hypertension) Code(s): I10 - ESSENTIAL (PRIMARY) HYPERTENSION (3) HLD (hyperlipidemia) Code(s): E78.5 - HYPERLIPIDEMIA, UNSPECIFIED (4) Diabetes Code(s): E11.9 - TYPE 2 DIABETES MELLITUS WITHOUT COMPLICATIONS Visit type - Emergency Visit Emergency Visit: Yes ED Registration Date: 09/17/18 Care time: The patient presented to the Emergency Department on the above date and was hospitalized for further evaluation of their emergent condition. - New Patient This patient is new to me today: No - Critical Care Critical Care patient: No
[2018-09-29 13:09] LABS: ANION GAP 6 MMOL/L (8-16); BLOOD UREA NITROGEN 14 mg/dL (7-18); CALCIUM 8.7 mg/dL (8.5-10.1); CHLORIDE 113 mmol/L (98-107); CO2 28 mmol/L (21-32); CREATININE 0.9 mg/dL (0.55-1.3); GLUCOSE,RANDOM 206 mg/dL (74-106); POTASSIUM 3.7 mmol/L (3.5-5.1); SODIUM 147 mmol/L (136-145)
[2018-09-29] MEDS ORDERED: SODIUM CHLORIDE 1,000 ML IV SCH (13:45)
--- NOTE | 2018-09-29 19:09 | PN ---
Teaching Attending Note Name of Resident: Patricia Torres ATTENDING PHYSICIAN STATEMENT I saw and evaluated the patient. I reviewed the resident's note and discussed the case with the resident. I agree with the resident's findings and plan as documented. SUBJECTIVE: Patient is better today, sodium level improved post IVF. OBJECTIVE: Vital Signs Temperature 98.6 F 09/29/18 14:56 Pulse Rate 92 H 09/29/18 14:56 Respiratory Rate 20 09/29/18 14:56 Blood Pressure 162/75 09/29/18 14:56 O2 Sat by Pulse Oximetry (%) 95 09/29/18 09:00 GENERAL: The patient is lying in bed with no acute distress. HEAD: Normal with no signs of trauma. EYES: PERRL, extraocular movements intact, sclera anicteric, conjunctiva clear. ENT: Ears normal, oropharynx clear without exudates, dry mucous membranes. NECK: Trachea midline, full range of motion, supple. LUNGS: decreased Breath sounds at basis otherwise clear to auscultation. no accessory muscle use. HEART: RRR,S1, S2 without murmur, rub or gallop. ABDOMEN: Soft, Nt,ND, normoactive bowel sounds, no guarding, no rebound, no hepatosplenomegaly, no masses. EXTREMITIES: 2+ pulses, warm, well-perfused, no edema. NEUROLOGICAL: Cranial nerves II through XII grossly intact. gait not observed. PSYCH: Normal mood, normal affect. SKIN: Warm, dry, normal turgor, no rashes or lesions notedCBCD WBC 9.1 K/mm3 (4.0-10.0) 09/28/18 08:50 RBC 3.71 M/mm3 (4.00-5.60) L 09/28/18 08:50 Hgb 11.4 GM/dL (11.7-16.9) L 09/28/18 08:50 Hct 34.0 % (35.4-49) L 09/28/18 08:50 MCV 91.6 fl (80-96) 09/28/18 08:50 MCHC 33.6 g/dl (32.0-35.9) 09/28/18 08:50 RDW 15.7 % (11.9-15.9) 09/28/18 08:50 Plt Count 348 K/MM3 (134-434) 09/28/18 08:50 MPV 7.5 fl (7.5-11.1) 09/28/18 08:50 CMP Sodium 147 mmol/L (136-145) H 09/29/18 12:42 Potassium 3.7 mmol/L (3.5-5.1) 09/29/18 12:42 Chloride 113 mmol/L (98-107) H 09/29/18 12:42 Carbon Dioxide 28 mmol/L (21-32) 09/29/18 12:42 Anion Gap 6 MMOL/L (8-16) L 09/29/18 12:42 BUN 14 mg/dL (7-18) 09/29/18 12:42 Creatinine 0.9 mg/dL (0.55-1.3) 09/29/18 12:42 Creat Clearance w eGFR 80.59 (>60) 09/29/18 12:42 Random Glucose 206 mg/dL (74-106) H 09/29/18 12:42 Calcium 8.7 mg/dL (8.5-10.1) 09/29/18 12:42 Total Bilirubin 0.7 mg/dL (0.2-1) 09/28/18 08:50 AST 21 U/L (15-37) 09/28/18 08:50 ALT 43 U/L (13-61) 09/28/18 08:50 Alkaline Phosphatase 118 U/L (45-117) H 09/28/18 08:50 Total Protein 7.0 g/dl (6.4-8.2) 09/28/18 08:50 Albumin 3.1 g/dl (3.4-5.0) L 09/28/18 08:50 Current Medications Generic Name Dose Route Start Last Admin Trade Name Freq PRN Reason Stop Dose Admin Acetaminophen 650 mg 09/27/18 14:39 Tylenol - PO Q6H PRN Fever Or Pain Albuterol/Ipratropium 1 amp 09/19/18 07:18 09/20/18 21:30 Duoneb - NEB 1 amp Q6H PRN Administration SHORTNESS OF BREATH Albuterol/Ipratropium 1 amp 09/21/18 14:00 09/29/18 13:55 Duoneb - NEB Not Given RTID BLAIR Aspirin 81 mg 09/18/18 10:00 09/29/18 10:15 Asa - PO 81 mg DAILY BLAIR Administration Atorvastatin Calcium 5 mg 09/17/18 22:00 09/28/18 22:39 Lipitor - PO 5 mg HS BLAIR Administration Citalopram Hydrobromide 10 mg 09/18/18 10:00 09/29/18 10:16 Celexa - PO 10 mg DAILY BLAIR Administration Docusate Sodium 200 mg 09/17/18 22:00 09/28/18 22:39 Colace - PO 200 mg HS BLAIR Administration Heparin Sodium (Porcine) 5,000 unit 09/24/18 22:00 09/29/18 14:25 Heparin - SQ 5,000 unit TID BLAIR Administration Sodium Chloride 1,000 mls @ 50 mls/hr 09/29/18 13:45 09/29/18 15:00 Normal Saline - IV 09/30/18 09:44 50 mls/hr ASDIR BLAIR Administration Insulin Aspart 1 vial 09/17/18 22:00 09/29/18 16:21 Novolog Vial Sliding Scale - SQ Not Given ACHS [facility] Protocol Metoprolol Tartrate 50 mg 09/28/18 14:25 09/29/18 10:16 Lopressor - PO 50 mg BID BLAIR Administration Nystatin 1 applic 09/18/18 10:00 09/29/18 10:16 Mycostatin Cream - TP 1 applic BID BLAIR Administration Nystatin 500,000 units 09/19/18 18:00 09/29/18 17:03 Nystatin Oral Suspension - PO Not Given Q6HPO [facility] Polyethylene Glycol 17 gm 09/18/18 10:00 09/29/18 10:16 Miralax (For Daily Use) - PO Not Given DAILY [facility] Ramipril 10 mg 09/22/18 10:00 09/29/18 10:15 Altace - PO 10 mg DAILY BLAIR Administration Home Medications Medication Instructions Recorded Acetaminophen [Tylenol] 650 mg PO QID 09/17/18 Aspirin [ASA -] 81 mg PO DAILY 09/17/18 Atorvastatin Ca [Lipitor] 5 mg PO HS 09/17/18 Citalopram Hydrobromide [Celexa -] 10 mg PO DAILY 09/17/18 Docusate Sodium 200 mg PO HS 09/17/18 Magnesium Hydroxide [Milk of 400 mg PO DAILY 09/17/18 Magnesia] Metformin HCl [Glucophage] 500 mg PO DAILY 09/17/18 Metoprolol Tartrate 25 mg PO BID 09/17/18 Polyethylene Glycol 3350 [Miralax 17 gm PO DAILY 09/17/18 (For Daily Use) -] Ramipril 10 mg PO DAILY 09/17/18 ASSESSMENT AND PLAN: 82 y/o man with h/o advanced dementia, non-verbal, HTN, HLP, DM, UTIs, questionable MVR , who was sent form [facility] due to fever and hemtauria and was found to have sepsis due to UTI. # Acute Hypernatremia : patient improved post IVF # Acute dehydration : s/p IVF , encourage oral fluid intake # HTN Uncontrolled: increased BB to 50mg po bid and continue Rampiril 10mg will monitor. # s/p sepsis due to complicated UTI, no further fever IV Zosyn discontinued. will continue to monitor the vitals. #Acute diastolic heart failure: lasix as needed. # Hematuria: due to infection . resolved now # Acute Transaminitis: improved # urinary retention : leonard # DM: on metformin will restart in am , continue SSI. DVT PX: SCDs
[2018-09-29] MEDS: ATORVASTATIN CA 10 MG TABLET (FP) PO SCH (21:51)
[2018-09-29] MEDS: DOCUSATE SODIUM 100 MG CAPSULE (FP) PO SCH (21:51)
[2018-09-30] MEDS: NYSTATIN 500,000 UNITS/5 ML SUSPENSION PO SCH ×3 (00:30→13:42)
[2018-09-30] MEDS: HEPARIN NA (PORCINE) 5,000 UNITS/ML 1ML VIAL SQ SCH ×2 (06:10→13:42)
[2018-09-30] MEDS: INSULIN SLIDING SCALE (NOVOLOG) 1 VIAL SQ SCH ×2 (06:22→12:06)
[2018-09-30] MEDS: ALBUTEROL SO4 2.5/IPRATROPIUM 0.5 INH SOL 3 ML VIAL.NEB. NEB SCH ×2 (07:20→13:54)
[2018-09-30 08:20] LABS: HEMATOCRIT 35.1 % (35.4-49); HEMOGLOBIN 11.9 GM/dL (11.7-16.9); MCH 31.7 pg (25.7-33.7); MCHC 33.9 g/dl (32.0-35.9); MEAN CELL VOLUME 93.6 fl (80-96); MEAN PLT VOLUME 7.8 fl (7.5-11.1); PLATELET COUNT 315 K/MM3 (134-434); RBC 3.75 M/mm3 (4.00-5.60); RDW 16.1 % (11.9-15.9)
[2018-09-30 08:52] LABS: ALBUMIN 2.8 g/dl (3.4-5.0); ALK PHOS 110 U/L (45-117); ANION GAP 4 MMOL/L (8-16); BILIRUBIN,TOTAL 0.7 mg/dL (0.2-1); BLOOD UREA NITROGEN 15 mg/dL (7-18); CALCIUM 8.9 mg/dL (8.5-10.1); CHLORIDE 116 mmol/L (98-107); CO2 27 mmol/L (21-32); CREATININE 0.9 mg/dL (0.55-1.3); GLUCOSE,RANDOM 157 mg/dL (74-106); MAGNESIUM 2.1 mg/dL (1.8-2.4); PHOSPHOROUS 2.7 mg/dL (2.5-4.9); SGOT/AST 22 U/L (15-37); SGPT/ALT 41 U/L (13-61); SODIUM 147 mmol/L (136-145); TOT PROT 6.5 g/dl (6.4-8.2)
[2018-09-30] MEDS: CITALOPRAM HYDROBROMIDE 10 MG TABLET (FP) PO SCH (09:23)
[2018-09-30] MEDS: POLYETHYLENE GLYCOL 3350 119 GM BTL PO SCH ×2 (09:24→09:26)
[2018-09-30] MEDS: ASPIRIN 81 MG CHEWABLE TABLETS PO SCH (09:24)
[2018-09-30] MEDS: METOPROLOL TARTRATE 25 MG TABLET (FP) PO SCH (09:24)
[2018-09-30] MEDS: RAMIPRIL 5 MG CAPSULE (FP) PO SCH (09:24)
[2018-09-30] MEDS: NYSTATIN 100,000 UNIT/GM TOPICAL CREAM 15 GM TUBE TP SCH (09:25)
[2018-09-30] MEDS ORDERED: INSULIN (NOVOLOG) ASPART 100 UNITS/ML 10ML VIAL ONE (12:04)
--- NOTE | 2018-09-30 13:42 | DS ---
Physical Exam: SUBJECTIVE: Patient seen and examined OBJECTIVE: Vital Signs Period Temp Pulse Resp BP Sys/Lozano Pulse Ox Last 24 Hr 97.1 F-99 F 85-92 20-20 107-162/74-87 90-95 PHYSICAL EXAM GENERAL: The patient is awake, alert, and fully oriented, in no acute distress. HEAD: Normal with no signs of trauma. EYES: PERRL, extraocular movements intact, sclera anicteric, conjunctiva clear. ENT: Ears normal, nares patent, oropharynx clear without exudates, moist mucous membranes. NECK: Trachea midline, full range of motion, supple. LUNGS: Breath sounds equal, clear to auscultation bilaterally, no wheezes, no crackles, no accessory muscle use. HEART: Regular rate and rhythm, S1, S2 without murmur, rub or gallop. ABDOMEN: Soft, nontender, nondistended, normoactive bowel sounds, no guarding, no rebound, no hepatosplenomegaly, no masses. EXTREMITIES: 2+ pulses, warm, well-perfused, no edema. NEUROLOGICAL: Cranial nerves II through XII grossly intact. Normal speech, gait not observed. PSYCH: Normal mood, normal affect. SKIN: Warm, dry, normal turgor, no rashes or lesions noted. LABS Laboratory Results - last 24 hr 09/29/18 09/29/18 09/30/18 16:20 21:49 06:08 WBC RBC Hgb Hct MCV MCH MCHC RDW Plt Count MPV Sodium Potassium Chloride Carbon Dioxide Anion Gap BUN Creatinine Creat Clearance w eGFR POC Glucometer 132 260 160 Random Glucose Calcium Phosphorus Magnesium Total Bilirubin AST ALT Alkaline Phosphatase Total Protein Albumin 09/30/18 09/30/18 09/30/18 08:05 08:05 11:44 WBC 9.0 RBC 3.75 L Hgb 11.9 Hct 35.1 L MCV 93.6 MCH 31.7 MCHC 33.9 RDW 16.1 H Plt Count 315 MPV 7.8 Sodium 147 H Potassium 4.0 Chloride 116 H Carbon Dioxide 27 Anion Gap 4 L BUN 15 Creatinine 0.9 Creat Clearance w eGFR 80.59 POC Glucometer 269 Random Glucose 157 H Calcium 8.9 Phosphorus 2.7 Magnesium 2.1 Total Bilirubin 0.7 AST 22 ALT 41 Alkaline Phosphatase 110 Total Protein 6.5 Albumin 2.8 L HOSPITAL COURSE: Date of Admission:09/17/18 82 y/o male with PMH of HTN, HLD, DM, dementia, aphasia previous UTIs was brought in from [facility] for what it seems to be urinary retention - history could not be obtained as patient is apahsic and dementia and no one was present at bedside. ER course was notable for: (1)T 103.7 HR 110 (2)Lactic acid 4.3, WBC 10.6, U/A + nitrite, - leuk esterase, 2991 WBC 1406 RBC (3)given 1 gram tylenol, zosyn, 3.5 liters of fluid when leonard was placed ronald hematuria came out- patient has had this problem in the past. he was started on zosyn however he kept spiking fevers throughout his hospital course. We did an abodminal u.s which showed gallstones with mild sludge but no CBD dilatation. he also had a bladder us which showed an enlarged prostate with either possible mass or clots- most likely clots. patients LFTS and alk phos began to rise and he continued to spike fevers- patient could not lay down for MRCP as he would get very agitated etc. so we did a repeat abdominal us which showed no interval chanhge. we did a chest xray which showed posisble PNA v. atelectasis but patient was coverede with zosyn. he remianed on zosyn for 9 days then was observed off zosyn and was no longer spiking fevers. patient then began to get hypernatremic likely 2/2 poor PO intake we gave him fluids and his sodium downtrended. he was stable to be d/c back to skilled nursing Date of Discharge: 09/30/18 Minutes to complete discharge: 39 Discharge Summary Reason For Visit: SEPSIS DUE TO UTI/HEMATURIA Current Active Problems Diabetes (Chronic) Condition: Improved - Instructions Diet, Activity, Other Instructions: You came to the emergency room with complaints of urinary retention and blood in your urine. 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 We did a CT scan of your abdomen/pelvis which showed gallstones but no evidence of a gallbladder infection. Please resume all of your home medications HOWEVER: we increased your metoprolol dosing to 50mg twice a day Please follow up with your primary care physician, Dr. Fierro within one week Please follow up with the urologist, Dr. Covarrubias within one week You sodium was also found to be slightly elevated- we encourage you to increase your oral fluid intake *if you continue to have urinary problems, begin to experience any chest pains, shortness of breath, fevers, please return to the emergency room immediately Referrals: Aleksandr Clark MD [Staff Physician] - 1 Week Lisa Fierro [Primary Care Provider] - 1 Week Disposition: HALFWAY FACILITY - Home Medications Comprehensive Discharge Medication List: Ambulatory Orders Acetaminophen [Tylenol] 650 mg PO QID 09/17/18 Aspirin [ASA -] 81 mg PO DAILY 09/17/18 Atorvastatin Ca [Lipitor] 5 mg PO HS 09/17/18 Citalopram Hydrobromide [Celexa -] 10 mg PO DAILY 09/17/18 Docusate Sodium 200 mg PO HS 09/17/18 Magnesium Hydroxide [Milk of Magnesia] 400 mg PO DAILY 09/17/18 Metformin HCl [Glucophage] 500 mg PO DAILY 09/17/18 Polyethylene Glycol 3350 [Miralax 119 gm Btl -] 17 gm PO DAILY 09/17/18 Ramipril 10 mg PO DAILY 09/17/18 Metoprolol Tartrate [Lopressor -] 50 mg PO BID 30 Days #60 tablet 09/30/18 Problem List - Problems (1) UTI (urinary tract infection) Code(s): N39.0 - URINARY TRACT INFECTION, SITE NOT SPECIFIED (2) HTN (hypertension) Code(s): I10 - ESSENTIAL (PRIMARY) HYPERTENSION (3) HLD (hyperlipidemia) Code(s): E78.5 - HYPERLIPIDEMIA, UNSPECIFIED (4) Diabetes Code(s): E11.9 - TYPE 2 DIABETES MELLITUS WITHOUT COMPLICATIONS This patient is new to me today: No Emergency Visit: Yes ED Registration Date: 09/17/18 Care time: The patient presented to the Emergency Department on the above date and was hospitalized for further evaluation of their emergent condition. Critical Care patient: No - Discharge Referral Referred to [facility] No
[2018-09-30 14:39] VITALS: BP 154/65; PULSE 79; TEMP 98.3
--- NOTE | 2018-09-30 16:12 | PN ---
Progress Note, VP CLINICAL - Note Progress Note: Selected Entries 09/30/18 09/30/18 09/30/18 05:50 10:00 10:06 Breakfast 50% Lunch Pulse Rate 90 85 09/30/18 14:35 Breakfast Lunch 50% Pulse Rate 79 Laboratory Tests 09/30/18 08:05 WBC 9.0 Tolerating Dysphagia whole diet/nectar thick liquid with less coughing reported. Pending d/c today. Continue diet as ordered.
--- NOTE | 2018-09-30 18:41 | PN ---
Teaching Attending Note Name of Resident: Patricia Torres ATTENDING PHYSICIAN STATEMENT I saw and evaluated the patient. I reviewed the resident's note and discussed the case with the resident. I agree with the resident's findings and plan as documented. SUBJECTIVE: Patient is better. No further fever ,comfortable. OBJECTIVE: Vital Signs Temperature 98.3 F 09/30/18 14:35 Pulse Rate 79 09/30/18 14:35 Respiratory Rate 20 09/30/18 14:35 Blood Pressure 154/65 09/30/18 14:35 O2 Sat by Pulse Oximetry (%) 90 L 09/30/18 09:00 GENERAL: The patient is lying in bed with no acute distress. HEAD: Normal with no signs of trauma. EYES: PERRL, extraocular movements intact, sclera anicteric, conjunctiva clear. ENT: Ears normal, oropharynx clear without exudates, dry mucous membranes. NECK: Trachea midline, full range of motion, supple. LUNGS: clear to auscultation. no accessory muscle use. HEART: RRR,S1, S2 without murmur, rub or gallop. ABDOMEN: Soft, Nt,ND, normoactive bowel sounds, no guarding, no rebound, no hepatosplenomegaly, no masses. EXTREMITIES: 2+ pulses, warm, well-perfused, no edema. NEUROLOGICAL: Cranial nerves II through XII grossly intact. gait not observed. PSYCH: Normal mood, normal affect. SKIN: Warm, dry, normal turgor, no rashes or lesions noted CBCD WBC 9.0 K/mm3 (4.0-10.0) 09/30/18 08:05 RBC 3.75 M/mm3 (4.00-5.60) L 09/30/18 08:05 Hgb 11.9 GM/dL (11.7-16.9) 09/30/18 08:05 Hct 35.1 % (35.4-49) L 09/30/18 08:05 MCV 93.6 fl (80-96) 09/30/18 08:05 MCHC 33.9 g/dl (32.0-35.9) 09/30/18 08:05 RDW 16.1 % (11.9-15.9) H 09/30/18 08:05 Plt Count 315 K/MM3 (134-434) 09/30/18 08:05 MPV 7.8 fl (7.5-11.1) 09/30/18 08:05 CMP Sodium 147 mmol/L (136-145) H 09/30/18 08:05 Potassium 4.0 mmol/L (3.5-5.1) 09/30/18 08:05 Chloride 116 mmol/L (98-107) H 09/30/18 08:05 Carbon Dioxide 27 mmol/L (21-32) 09/30/18 08:05 Anion Gap 4 MMOL/L (8-16) L 09/30/18 08:05 BUN 15 mg/dL (7-18) 09/30/18 08:05 Creatinine 0.9 mg/dL (0.55-1.3) 09/30/18 08:05 Creat Clearance w eGFR 80.59 (>60) 09/30/18 08:05 Random Glucose 157 mg/dL (74-106) H 09/30/18 08:05 Calcium 8.9 mg/dL (8.5-10.1) 09/30/18 08:05 Total Bilirubin 0.7 mg/dL (0.2-1) 09/30/18 08:05 AST 22 U/L (15-37) 09/30/18 08:05 ALT 41 U/L (13-61) 09/30/18 08:05 Alkaline Phosphatase 110 U/L (45-117) 09/30/18 08:05 Total Protein 6.5 g/dl (6.4-8.2) 09/30/18 08:05 Albumin 2.8 g/dl (3.4-5.0) L 09/30/18 08:05 Home Medications Medication Instructions Recorded Acetaminophen [Tylenol] 650 mg PO QID 09/17/18 Aspirin [ASA -] 81 mg PO DAILY 09/17/18 Atorvastatin Ca [Lipitor] 5 mg PO HS 09/17/18 Citalopram Hydrobromide [Celexa -] 10 mg PO DAILY 09/17/18 Docusate Sodium 200 mg PO HS 09/17/18 Magnesium Hydroxide [Milk of 400 mg PO DAILY 09/17/18 Magnesia] Metformin HCl [Glucophage] 500 mg PO DAILY 09/17/18 Polyethylene Glycol 3350 [Miralax 17 gm PO DAILY 09/17/18 119 gm Btl -] Ramipril 10 mg PO DAILY 09/17/18 Metoprolol Tartrate [Lopressor -] 50 mg PO BID 30 Days #60 tablet 09/30/18 ASSESSMENT AND PLAN: 82 y/o man with h/o advanced dementia, non-verbal, HTN, HLP, DM, UTIs, questionable MVR , who was sent form [facility] due to fever and hemtauria and was found to have sepsis due to UTI. # Acute Hypernatremia : patient improved post IVF , will discharge the patient to rehab. # Acute dehydration : s/p IVF , encourage oral fluid intake # HTN better controlled: continue BB with 50mg po bid , Hr is better controlled now and continue Rampiril 10mg # s/p sepsis due to complicated UTI, no further fever IV Zosyn discontinued. #Acute diastolic heart failure: lasix as needed. # Hematuria: due to infection . resolved now # Acute Transaminitis: improved # DM: on metformin will restart in am , continue SSI. DVT PX: SCDs discharge patient to rehab.
== END 2018-09-30 17:06 | DRG 871 ==
LOC: JER 14:09 → JERBED 16:27 → J7W 18:46
PROVIDERS: ADMIT Internal Medicine; ATTEND Internal Medicine
DX: A41.9 Sepsis, unspecified organism (principal); I50.31 Acute diastolic (congestive) heart failure; J18.9 Pneumonia, unspecified organism; R47.01 Aphasia; N39.0 Urinary tract infection, site not specified; E87.0 Hyperosmolality and hypernatremia; J98.11 Atelectasis; I10 Essential (primary) hypertension; E78.5 Hyperlipidemia, unspecified; E11.9 Type 2 diabetes mellitus without complications; F03.90 Unspecified dementia, unspecified severity, without behavioral disturbance, psychotic disturbance, mood disturbance, and anxiety; R33.9 Retention of urine, unspecified; R31.0 Gross hematuria; I11.0 Hypertensive heart disease with heart failure; N40.0 Benign prostatic hyperplasia without lower urinary tract symptoms; E86.0 Dehydration; E66.9 Obesity, unspecified; Z68.34 Body mass index [BMI] 34.0-34.9, adult; R74.0 Nonspecific elevation of levels of transaminase and lactic acid dehydrogenase [LDH]; Z66 Do not resuscitate
CPT/HCPCS: 36415; 71045-TC-FY; 74018-TC-FY; 74176-TC; 74230-TC-FY; 76705-TC; 76775-TC; 76856-TC; 80048; 80053; 81003; 81015; 82803; 82962; 82977; 83605; 83735; 84075; 84100; 84450; 84460; 85025; 85027; 85610; 85651; 86140; 86850; 86900; 86901; 87040; 87086; 87804; 92611-GN; 93005; 93010; 93306-TC; 93970-TC; 94640; 97116-GP; 97161-GP; 99285-25; J0131; J1644; J7030